=== PATIENT | male | born 1990 | race Caucasian/White ===

== ENCOUNTER 2021-01-08 14:16 | Inpatient (IN) | payer OTHER ==
[~2021-01-08] VITALS: Ht 172.7 cm; Wt 75.0 kg
[2021-01-08] MEDS ORDERED: acetaminophen 325mg tablet PO ONE (15:55)
[2021-01-08] MEDS ORDERED: normal saline 1000ML IV soln IVB ONE (17:20)
[2021-01-08] MEDS ORDERED: ketorolac trometh. 30mg/ml inj. IV ONE (17:20)
[2021-01-08] MEDS ORDERED: iohexol 350MG/ML 100ml bottle IV ONE (17:43)
[2021-01-08 17:54] LABS: BASOPHILS # (AUTO) 0.1 X10'3 (0-0.2); BASOPHILS % (AUTO) 0.4 % (0-1); EOSINOPHILS # (AUTO) 0.1 X10'3 (0-0.9); EOSINOPHILS % (AUTO) 0.4 % (0-6); HEMATOCRIT 46.2 % (42.0-52.0); HEMOGLOBIN 16.1 g/dl (14.0-17.9); LYMPHOCYTES # (AUTO) 1.3 X10'3 (1.1-4.8); LYMPHOCYTES % (AUTO) 8.6 % (21-51); MEAN CORPUSCULAR HEMOGLOBIN 38.1 PG (27.0-31.0); MEAN CORPUSCULAR HGB CONC 34.9 g/dL (33.0-36.5); MEAN CORPUSCULAR VOLUME 109.2 FL (78-98); MEAN PLATELET VOLUME 8.2 FL (7.4-10.4); MONOCYTES # (AUTO) 0.7 X10'3 (0-0.9); MONOCYTES % (AUTO) 4.5 % (2-12); NEUTROPHILS # (AUTO) 13.5 X10'3 (1.8-7.7); NEUTROPHILS % (AUTO) 86.1 % (42-75); PLATELET COUNT 295 X10'3 (140-440); RED BLOOD COUNT 4.23 X10'6 (4.70-6.10); RED CELL DISTRIBUTION WIDTH 16.6 % (11.5-14.5); WHITE BLOOD COUNT 15.7 X10'3 (4.5-11.0)
[2021-01-08 18:17] LABS: ALANINE AMINOTRANSFERASE 32 U/L (12-78); ALBUMIN 3.4 G/DL (3.4-5.0); ALBUMIN/GLOBULIN RATIO 0.7 (1.1-1.5); ALKALINE PHOSPHATASE 177 IU/L (46-116); ANION GAP 11 (8-16); ASPARTATE AMINO TRANSFERASE 34 U/L (10-37); BILIRUBIN,TOTAL 1.5 MG/DL (0.1-1.0); BLOOD UREA NITROGEN 11 MG/DL (7-18); BUN/CREATININE RATIO 11.6 (5.4-32.0); CALCIUM 9.2 MG/DL (8.5-10.1); CHLORIDE 97 MMOL/L (99-107); CREATININE 0.95 MG/DL (0.60-1.10); GLUCOSE 110 MG/DL (70-104); POTASSIUM 3.9 MMOL/L (3.5-5.1); SODIUM 133 MMOL/L (135-145); TOTAL CARBON DIOXIDE 24.7 MMOL/L (24-32); TOTAL PROTEIN 8.2 G/DL (6.4-8.2); eGFR > 90 ML/MIN
[2021-01-08 18:25] LABS: TROPONIN I < 0.04 NG/ML (0.0-0.05)
[2021-01-08] MEDS ORDERED: heparin 10,000 units/1 ML INJ IV ONE ×2 (18:25→18:35)
[2021-01-08] MEDS ORDERED: heparin 10,000 units/1 ML INJ IV PRN ×2 (18:25→20:10)
[2021-01-08] MEDS ORDERED: heparin 25,000 UNIT/250ml bag 250 ML IV SCH ×2 (18:25→20:10)
[2021-01-08] MEDS ORDERED: magnesium 4gm in 100ml NS 100 ML IV PRN (20:10)
[2021-01-08] MEDS ORDERED: acetaminophen 325mg tablet PO PRN ×2 (20:10)
[2021-01-08] MEDS ORDERED: ondansetron/PF 4mg/2ml inj IV PRN (20:10)
[2021-01-08] MEDS ORDERED: morphine 2 MG/ML inj. syringe IV PRN (20:10)
[2021-01-08] MEDS ORDERED: magnesium Cl slow-release 64mg tablet PO PRN (20:10)
[2021-01-08] MEDS ORDERED: HYDROcodone/acetaminophen 5mg/325mg tablet PO PRN (20:10)
[2021-01-08] MEDS ORDERED: potassium Cl 40MEQ/1/2NS 520ml 520 ML IV PRN ×2 (20:10)
[2021-01-08] MEDS ORDERED: magnesium hydroxide 30ml (MOM) UD suspension PO PRN (20:10)
[2021-01-08] MEDS ORDERED: magnesium 2GM in 50ml NS 50 ML IV PRN (20:10)
[2021-01-08] MEDS ORDERED: potassium Cl 20 mEq SR tablet PO PRN (20:10)
[2021-01-08] MEDS ORDERED: NO HOME MEDS (20:22)
[2021-01-08] MEDS ORDERED: temazepam 15mg capsule PO PRN (21:00)
[2021-01-08] MEDS: normal saline 1000ml 1,000 ML IV SCH (21:34)
[2021-01-09] MEDS ORDERED: morphine 4 MG/ML inj SYRINge IV ONE (03:00)
[2021-01-09 03:42] LABS: ALANINE AMINOTRANSFERASE 30 U/L (12-78); ALBUMIN 2.9 G/DL (3.4-5.0); ALBUMIN/GLOBULIN RATIO 0.7 (1.1-1.5); ALKALINE PHOSPHATASE 153 IU/L (46-116); ANION GAP 11 (8-16); ASPARTATE AMINO TRANSFERASE 28 U/L (10-37); BILIRUBIN,TOTAL 1.2 MG/DL (0.1-1.0); BLOOD UREA NITROGEN 10 MG/DL (7-18); BUN/CREATININE RATIO 11.8 (5.4-32.0); CALCIUM 8.4 MG/DL (8.5-10.1); CHLORIDE 102 MMOL/L (99-107); CREATININE 0.85 MG/DL (0.60-1.10); GLUCOSE 114 MG/DL (70-104); MAGNESIUM 2.1 MG/DL (1.5-2.4); POTASSIUM 3.1 MMOL/L (3.5-5.1); SODIUM 137 MMOL/L (135-145); TOTAL CARBON DIOXIDE 23.7 MMOL/L (24-32); TOTAL PROTEIN 7.1 G/DL (6.4-8.2); TROPONIN I < 0.04 NG/ML (0.0-0.05); eGFR > 90 ML/MIN
[2021-01-09] MEDS: HYDROcodone/acetaminophen 10/325mg tab PO PRN ×3 (05:24→21:32)
[2021-01-09] MEDS: normal saline 1000ml 1,000 ML IV SCH ×2 (06:10→11:35)
--- NOTE | 2021-01-09 06:45 | NUR ---
patient awake,ice packs given for lower gage pain.on Heparin drip 1550 units/hour.
[2021-01-09] MEDS ORDERED: enoxaparin 30mg/0.3ml syringe SUBCUT ONE (08:05)
[2021-01-09] MEDS ORDERED: enoxaparin 40mg/0.4ml syringe SUBCUT ONE (08:05)
[2021-01-09] MEDS: morphine 2 MG/ML inj. syringe IV PRN ×3 (08:21→23:05)
[2021-01-09] MEDS: potassium Cl 20 mEq SR tablet PO PRN ×2 (08:31→16:51)
[2021-01-09] MEDS ORDERED: heparin 1,000 UNITS/NS 500ml 500 ML ONE (08:34)
[2021-01-09] MEDS ORDERED: iohexol 300mg/ml 100ml inj. ONE (08:34)
[2021-01-09] MEDS ORDERED: fentaNYL/PF 50MCG/1 ML 2ML syringe ONE ×2 (08:34→10:31)
[2021-01-09] MEDS ORDERED: midazolam 1 mg/ML 2ml injection ONE (08:34)
[2021-01-09] MEDS ORDERED: LIDOcaine 1%/PF 5ML 10 MG/ML VIAL ONE (08:34)
[2021-01-09] MEDS: K and/or MAG REPLACEMENT MC SCH ×2 (08:35→20:00)
--- NOTE | 2021-01-09 08:42 | NUR ---
Denies sob, given 2mg morphine for lower back pain,breakfast tray served, due meds given,pedal pulse + to left foot, call light within reach.
--- NOTE | 2021-01-09 09:00 | NUR ---
DR. HILL AT BEDSIDE.
[2021-01-09] MEDS ORDERED: diphenhydrAMINE 50 mg/ml inj ONE (09:52)
--- NOTE | 2021-01-09 10:00 | NUR ---
PATIENT TO IR.
[2021-01-09] MEDS ORDERED: heparin 1,000unit/ml 10ml vial 10 ML ONE (10:44)
--- NOTE | 2021-01-09 12:00 | NUR ---
patient back in the room.
[2021-01-09 12:38] LABS: BASOPHILS # (AUTO) 0.1 X10'3 (0-0.2); BASOPHILS % (AUTO) 0.4 % (0-1); EOSINOPHILS % (AUTO) 0.3 % (0-6); HEMATOCRIT 43.2 % (42.0-52.0); HEMOGLOBIN 14.5 g/dl (14.0-17.9); LYMPHOCYTES % (AUTO) 6.3 % (21-51); MEAN CORPUSCULAR HEMOGLOBIN 37.1 PG (27.0-31.0); MEAN CORPUSCULAR HGB CONC 33.5 g/dL (33.0-36.5); MEAN CORPUSCULAR VOLUME 110.8 FL (78-98); MEAN PLATELET VOLUME 8.3 FL (7.4-10.4); MONOCYTES # (AUTO) 0.8 X10'3 (0-0.9); MONOCYTES % (AUTO) 5.4 % (2-12); NEUTROPHILS # (AUTO) 13.5 X10'3 (1.8-7.7); NEUTROPHILS % (AUTO) 87.6 % (42-75); PLATELET COUNT 261 X10'3 (140-440); RED CELL DISTRIBUTION WIDTH 16.8 % (11.5-14.5); WHITE BLOOD COUNT 15.4 X10'3 (4.5-11.0)
[2021-01-09 14:09] LABS: ANISOCYTOSIS 1+; PLATELET ESTIMATE NORMAL
--- NOTE | 2021-01-09 16:00 | NUR ---
No evidence of bleeding or hematoma at suture site(left posterior knee). Dressing is clean dry and intact.
[2021-01-09] MEDS ORDERED: enoxaparin 100mg/ml syringe SUBCUT SCH (20:00)
[2021-01-09] MEDS: enoxaparin 30mg/0.3ml syringe SUBCUT SCH (21:38)
[2021-01-09] MEDS: enoxaparin 40mg/0.4ml syringe SUBCUT SCH (21:39)
--- NOTE | 2021-01-09 21:45 | NUR ---
Paged MD regarding patient Lovenox dose. Instructed to administer per order.
[2021-01-10] MEDS: normal saline 1000ml 1,000 ML IV SCH (00:13)
[2021-01-10 02:00] VITALS: BP 135/89
[2021-01-10] MEDS: HYDROcodone/acetaminophen 10/325mg tab PO PRN ×3 (03:12→11:52)
[2021-01-10] MEDS: potassium Cl 20 mEq SR tablet PO PRN (03:58)
--- NOTE | 2021-01-10 05:25 | NUR ---
patient in bed resting at this time. no signs of distress. patient C/O pain to lower back. pain medication administered per order. patient aware of plan of care. call light and personal belongings placed within reach. IVF infusing per order. instructed to call for assistance. report given to charge nurse.
[2021-01-10 06:32] LABS: BASOPHILS % (AUTO) 0.4 % (0-1); EOSINOPHILS # (AUTO) 0.3 X10'3 (0-0.9); EOSINOPHILS % (AUTO) 2.4 % (0-6); HEMATOCRIT 40.9 % (42.0-52.0); HEMOGLOBIN 13.9 g/dl (14.0-17.9); LYMPHOCYTES # (AUTO) 1.2 X10'3 (1.1-4.8); MEAN CORPUSCULAR HEMOGLOBIN 37.4 PG (27.0-31.0); MEAN CORPUSCULAR HGB CONC 33.9 g/dL (33.0-36.5); MEAN CORPUSCULAR VOLUME 110.4 FL (78-98); MEAN PLATELET VOLUME 8.4 FL (7.4-10.4); MONOCYTES # (AUTO) 0.8 X10'3 (0-0.9); MONOCYTES % (AUTO) 6.1 % (2-12); NEUTROPHILS # (AUTO) 10.1 X10'3 (1.8-7.7); NEUTROPHILS % (AUTO) 81.1 % (42-75); PLATELET COUNT 242 X10'3 (140-440); RED BLOOD COUNT 3.71 X10'6 (4.70-6.10); RED CELL DISTRIBUTION WIDTH 16.4 % (11.5-14.5); WHITE BLOOD COUNT 12.4 X10'3 (4.5-11.0)
[2021-01-10 06:46] LABS: ALANINE AMINOTRANSFERASE 24 U/L (12-78); ALBUMIN 2.5 G/DL (3.4-5.0); ALBUMIN/GLOBULIN RATIO 0.6 (1.1-1.5); ALKALINE PHOSPHATASE 129 IU/L (46-116); ANION GAP 9 (8-16); ASPARTATE AMINO TRANSFERASE 19 U/L (10-37); BILIRUBIN,TOTAL 0.6 MG/DL (0.1-1.0); BLOOD UREA NITROGEN 5 MG/DL (7-18); BUN/CREATININE RATIO 7.9 (5.4-32.0); CALCIUM 8.6 MG/DL (8.5-10.1); CHLORIDE 107 MMOL/L (99-107); CREATININE 0.63 MG/DL (0.60-1.10); GLUCOSE 109 MG/DL (70-104); POTASSIUM 3.5 MMOL/L (3.5-5.1); SODIUM 138 MMOL/L (135-145); TOTAL CARBON DIOXIDE 22.1 MMOL/L (24-32); TOTAL PROTEIN 6.4 G/DL (6.4-8.2); eGFR > 90 ML/MIN
[2021-01-10 07:00] VITALS: BP 146/94
--- NOTE | 2021-01-10 07:21 | NUR ---
REPORT SHEET GIVEN TO ME BY NOC CHARGE, MECHANICAL INSULATOR HAD TO LEAVE TO CATCH FLIGHT HOME. ASSUMED CARE OF PATIENT.
[2021-01-10] MEDS: enoxaparin 30mg/0.3ml syringe SUBCUT SCH (07:37)
[2021-01-10] MEDS: enoxaparin 40mg/0.4ml syringe SUBCUT SCH (07:37)
[2021-01-10] MEDS: K and/or MAG REPLACEMENT MC SCH (07:41)
[2021-01-10] MEDS ORDERED: APIX5TAB3 PO (11:50)
[2021-01-10] MEDS ORDERED: HYDR-3965 PO (11:50)
== END 2021-01-10 12:42 | disposition home or self-care (01) | DRG 270 ==
LOC: ER 14:17 → ED HOLD 20:07 → PCU 3S 01-09 20:15
PROVIDERS: ADMIT Internal Medicine; ATTEND Internal Medicine
PROC: B32T1ZZ Computerized Tomography (CT Scan) of Left Pulmonary Artery using Low Osmolar Contrast (ICD-10-PCS; 2021-01-08)
PROC: B3201ZZ Computerized Tomography (CT Scan) of Thoracic Aorta using Low Osmolar Contrast (ICD-10-PCS; 2021-01-08)
PROC: B32S1ZZ Computerized Tomography (CT Scan) of Right Pulmonary Artery using Low Osmolar Contrast (ICD-10-PCS; 2021-01-08)
PROC: 06CD3ZZ Extirpation of Matter from Left Common Iliac Vein, Percutaneous Approach (ICD-10-PCS; principal; 2021-01-09)
PROC: 06CN3ZZ Extirpation of Matter from Left Femoral Vein, Percutaneous Approach (ICD-10-PCS; 2021-01-09)
PROC: 067D3ZZ Dilation of Left Common Iliac Vein, Percutaneous Approach (ICD-10-PCS; 2021-01-09)
PROC: B51C1ZZ Fluoroscopy of Left Lower Extremity Veins using Low Osmolar Contrast (ICD-10-PCS; 2021-01-09)
PROC: B51C1ZZ Fluoroscopy of Left Lower Extremity Veins using Low Osmolar Contrast (ICD-10-PCS; 2021-01-09)
DX: I82.412 Acute embolism and thrombosis of left femoral vein (principal); I26.99 Other pulmonary embolism without acute cor pulmonale; D72.828 Other elevated white blood cell count; G89.29 Other chronic pain; I82.432 Acute embolism and thrombosis of left popliteal vein; I82.442 Acute embolism and thrombosis of left tibial vein; M54.2 Cervicalgia; M54.9 Dorsalgia, unspecified; R30.0 Dysuria; I51.7 Cardiomegaly; Z20.822 Contact with and (suspected) exposure to COVID-19; Z79.01 Long term (current) use of anticoagulants; Z82.49 Family history of ischemic heart disease and other diseases of the circulatory system; Z86.16 Personal history of COVID-19; Z88.1 Allergy status to other antibiotic agents; Z91.013 Allergy to seafood; Z72.89 Other problems related to lifestyle
CPT/HCPCS: 36005; 36415; 37187; 37248; 71045; 71275; 76937; 80053; 83605; 83735; 83880; 84145; 84484; 85008; 85025; 85347; 85610; 85730; 87081; 87635; 93005; 93306; 93970; 96374; 97116; 97161; 97530; 99285; C1725; C1757; C1769; C1887; C1894; C9803; G0378; J1200; J1644; J1650; J1885; J2250; J2270; J2405; J3010; J7030; Q9967

== ENCOUNTER 2021-02-24 16:33 | Inpatient (IN) | payer OTHER ==
[~2021-02-24] VITALS: Ht 175.3 cm; Wt 81.0 kg
[~2021-02-24 16:33] MED LIST: APIX5TAB3 PO; etomidate 2mg/ml inj. ONE; rocuronium 10mg/ml inj IV ONE
[2021-02-24] MEDS ORDERED: HYDROcodone/acetaminophen 10/325mg tab PO ONE (17:55)
[2021-02-24] MEDS ORDERED: ondansetron 4mg rapidly disintigrating tab PO ONE ×2 (18:00→18:25)
[2021-02-24] MEDS ORDERED: morphine 4 MG/ML inj SYRINge IM ONE (18:00)
[2021-02-24 18:13] LABS: EOSINOPHILS % (AUTO) 0.1 % (0-6); MEAN CORPUSCULAR HEMOGLOBIN 37.3 PG (27.0-31.0)
[2021-02-24 18:15] LABS: BASOPHILS % (AUTO) 0.2 % (0-1); HEMATOCRIT 56.8 % (42.0-52.0); LYMPHOCYTES # (AUTO) 1.2 X10'3 (1.1-4.8); LYMPHOCYTES % (AUTO) 6.2 % (21-51); MEAN CORPUSCULAR HGB CONC 34.1 g/dL (33.0-36.5); MEAN CORPUSCULAR VOLUME 109.2 FL (78-98); MEAN PLATELET VOLUME 8.5 FL (7.4-10.4); MONOCYTES # (AUTO) 0.7 X10'3 (0-0.9); MONOCYTES % (AUTO) 3.7 % (2-12); NEUTROPHILS # (AUTO) 17.3 X10'3 (1.8-7.7); NEUTROPHILS % (AUTO) 89.8 % (42-75); PLATELET COUNT 292 X10'3 (140-440); RED CELL DISTRIBUTION WIDTH 16.9 % (11.5-14.5); WHITE BLOOD COUNT 19.3 X10'3 (4.5-11.0)
[2021-02-24] MEDS ORDERED: LORazepam 2 mg/ml vial IM ONE (18:25)
[2021-02-24] MEDS ORDERED: famotidine/PF 10 mg/ml inj IV ONE (18:25)
[2021-02-24] MEDS ORDERED: pantoprazole 40MG/NS 100ML BAG 100 ML IV ONE (18:25)
[2021-02-24 18:30] LABS: ALANINE AMINOTRANSFERASE 93 U/L (12-78); ALBUMIN 3.9 G/DL (3.4-5.0); ALKALINE PHOSPHATASE 187 IU/L (46-116); ANION GAP 11 (8-16); ASPARTATE AMINO TRANSFERASE 81 U/L (10-37); BILIRUBIN,TOTAL 0.6 MG/DL (0.1-1.0); BLOOD UREA NITROGEN 5 MG/DL (7-18); BUN/CREATININE RATIO 4.8 (5.4-32.0); CALCIUM 9.7 MG/DL (8.5-10.1); CHLORIDE 99 MMOL/L (99-107); CREATININE 1.05 MG/DL (0.60-1.10); GLUCOSE 220 MG/DL (70-104); POTASSIUM 3.8 MMOL/L (3.5-5.1); SODIUM 138 MMOL/L (135-145); TOTAL CARBON DIOXIDE 27.8 MMOL/L (24-32); eGFR 83 ML/MIN
[2021-02-24 18:31] LABS: HEMOGLOBIN 19.4 g/dl (14.0-17.9)
[2021-02-24] MEDS ORDERED: normal saline 1000ML IV soln IV ONE (19:10)
[2021-02-24] MEDS ORDERED: iohexol 300mg/ml 100ml inj. ONE (19:39)
[2021-02-24 20:14] LABS: LIPASE 6852 U/L (73-393)
[2021-02-24] MEDS ORDERED: CefTRIAXone 2gm/D5W 50ml BAG 50 ML IV ONE (20:25)
--- NOTE | 2021-02-24 20:26 | NUR ---
ASSUMED CARE OF PT. PT ROOMED IN BED 9
[2021-02-24] MEDS ORDERED: morphine 4 MG/ML inj SYRINge IV ONE (20:30)
[2021-02-24] MEDS ORDERED: temazepam 15mg capsule PO PRN (21:00)
--- NOTE | 2021-02-24 21:26 | NUR ---
CATALINO ANGELO, GIVEN LACTIC CRITICAL RESULT. WE WILL SEE RESULT AFTER 2L OF FLUID BOLUS WHICH IS CURRENTLY RUNNING.
[2021-02-24] MEDS ORDERED: morphine 4 MG/ML inj SYRINge IV PRN (21:55)
--- NOTE | 2021-02-24 22:00 | NUR ---
PT TACHYCARDIC. HE STATES HE IS IN PAIN. TALKED TO LILO. WILL HAVE ORDER FOR PAIN MEDS.
[2021-02-24] MEDS ORDERED: diphenhydrAMINE 50 mg/ml inj IV PRN (23:40)
[2021-02-24] MEDS ORDERED: morphine 2 MG/ML inj. syringe IV PRN (23:40)
[2021-02-24] MEDS ORDERED: HYDROmorphone/PF 0.2 MG/ML SYRINGE IV PRN (23:40)
[2021-02-24] MEDS ORDERED: HYDROmorphone inj. 0.5 MG/0.5 ML DISP.SYRIN IV PRN (23:40)
[2021-02-24] MEDS ORDERED: HYDROcodone/acetaminophen 5mg/325mg tablet PO PRN (23:40)
[2021-02-24] MEDS ORDERED: bisacodyl 10mg suppository rectal RC PRN (23:40)
[2021-02-24] MEDS ORDERED: magnesium hydroxide 30ml (MOM) UD suspension PO PRN (23:40)
[2021-02-24] MEDS ORDERED: acetaminophen 650mg rectal suppository RC PRN (23:40)
[2021-02-24] MEDS ORDERED: ondansetron 4mg rapidly disintigrating tab PO PRN (23:40)
[2021-02-24] MEDS ORDERED: diphenhydrAMINE 25mg capsule PO PRN (23:40)
[2021-02-24] MEDS ORDERED: mag hydrox/Alum hydrox/simeth 30ml oral suspension PO PRN (23:40)
[2021-02-24] MEDS ORDERED: hydrALAZINE 20mg/ml inj. IV PRN (23:45)
[2021-02-24] MEDS ORDERED: haloperidol lactate 5mg/ml inj IM PRN (23:45)
[2021-02-24] MEDS ORDERED: dextrose 50%-water 50ml dispensing syringe IV PRN (23:45)
[2021-02-25 00:13] LABS: CREATINE KINASE 61 U/L (39-308)
[2021-02-25 00:15] LABS: HEMOGLOBIN A1C 5.1 % (4.5-6.2)
[2021-02-25 00:18] LABS: URINE AMPHETAMINE SCREEN NEGATIVE (Neg); URINE BARBITUATE SCREEN NEGATIVE (Neg); URINE BENZODIAZEPINES SCREEN NEGATIVE (Neg); URINE CANNABINOID SCREEN NEGATIVE (Neg); URINE COCAINE SCREEN NEGATIVE (Neg); URINE METHADONE SCREEN NEGATIVE (Neg); URINE OPIATE SCREEN POSITIVE (Neg); URINE PHENCYCLIDINE SCREEN NEGATIVE (Neg)
[2021-02-25 00:42] LABS: CLARITY,URINE CLEAR (Clear); COLOR,URINE YELLOW (Yellow); GLUCOSE, URINE NEGATIVE (Neg); KETONES,URINE NEGATIVE (Neg); LEUKOCYTE ESTERASE ,URINE NEGATIVE (Neg); NITRITES, URINE NEGATIVE (Neg); OCCULT BLOOD,URINE TRACE-INTACT (Neg); PH,URINE 6.5 (4.8-8.0); PROTEIN,URINE TRACE mg/dl (Neg); UROBILINOGEN,URINE 0.2 E.U/dL (0.2-1.0)
[2021-02-25 00:43] LABS: UA COLLECTION TYPE CLN CATCH MIDSTREAM
[2021-02-25 00:48] LABS: BACTERIA,URINE FEW /HPF (Neg); RBC,URINE 0-2 /HPF (0-2); SQUAMOUS EPITHELIAL CELL,UR FEW /LPF (FEW); WBC,URINE 0-4 /HPF (0-4)
[2021-02-25] MEDS: ondansetron/PF 4mg/2ml inj IV PRN ×3 (01:19→19:16)
--- NOTE | 2021-02-25 01:20 | NUR ---
PT IS COMPLAINING OF PAIN. WILL GIVE PAIN MEDS AND ATIVAN PER ORDERS PLACED FOR ETOH WITHDRAWAL
[2021-02-25] MEDS: morphine 2 MG/ML inj. syringe IV PRN ×4 (01:21→23:28)
--- NOTE | 2021-02-25 01:25 | NUR ---
SPOKE TO FASHION BUYER CONCERNING PT'S TACHYCARDIA AND OVERALL APPEARANCE
[2021-02-25] MEDS: dextrose 5%-1/2 normal saline 1,000 ML IV SCH ×3 (01:27→16:50)
[2021-02-25] MEDS: LORazepam 2 mg/ml vial IV PRN ×3 (01:35→23:25)
[2021-02-25 02:06] LABS: BASOPHILS # (AUTO) 0.1 X10'3 (0-0.2); BASOPHILS % (AUTO) 0.4 % (0-1); EOSINOPHILS % (AUTO) 0.1 % (0-6); HEMATOCRIT 55.9 % (42.0-52.0); LYMPHOCYTES # (AUTO) 0.5 X10'3 (1.1-4.8); LYMPHOCYTES % (AUTO) 3.4 % (21-51); MEAN CORPUSCULAR HEMOGLOBIN 37.1 PG (27.0-31.0); MEAN CORPUSCULAR HGB CONC 33.2 g/dL (33.0-36.5); MEAN CORPUSCULAR VOLUME 111.7 FL (78-98); MEAN PLATELET VOLUME 8.8 FL (7.4-10.4); MONOCYTES # (AUTO) 0.6 X10'3 (0-0.9); MONOCYTES % (AUTO) 4.4 % (2-12); NEUTROPHILS # (AUTO) 13.3 X10'3 (1.8-7.7); NEUTROPHILS % (AUTO) 91.7 % (42-75); PLATELET COUNT 213 X10'3 (140-440); RED CELL DISTRIBUTION WIDTH 17.4 % (11.5-14.5); WHITE BLOOD COUNT 14.4 X10'3 (4.5-11.0)
[2021-02-25 02:19] LABS: ALANINE AMINOTRANSFERASE 70 U/L (12-78); ALBUMIN 3.1 G/DL (3.4-5.0); ALBUMIN/GLOBULIN RATIO 0.8 (1.1-1.5); ALKALINE PHOSPHATASE 146 IU/L (46-116); ANION GAP 14 (8-16); ASPARTATE AMINO TRANSFERASE 47 U/L (10-37); BILIRUBIN,TOTAL 0.5 MG/DL (0.1-1.0); BLOOD UREA NITROGEN 5 MG/DL (7-18); CALCIUM 8.2 MG/DL (8.5-10.1); CHLORIDE 103 MMOL/L (99-107); CHOL/HDL RATIO 6.9 (0.00-4.99); CHOLESTEROL 250 MG/DL (0-200); CREATININE 1.01 MG/DL (0.60-1.10); GLUCOSE 214 MG/DL (70-104); HDL CHOLESTEROL 36 MG/DL (35-60); LDL CHOLESTEROL 166 MG/DL (50-100); POTASSIUM 4.8 MMOL/L (3.5-5.1); SODIUM 140 MMOL/L (135-145); TOTAL CARBON DIOXIDE 22.8 MMOL/L (24-32); TOTAL PROTEIN 6.8 G/DL (6.4-8.2); TRIGLYCERIDES 144 MG/DL (20-135); eGFR 87 ML/MIN
--- NOTE | 2021-02-25 02:35 | NUR ---
PT'S HEART HAS BEEN RACING. PT FEELS ANXIOUS. PT MEDICATED WITH ATIVAN PER ORDERS.
--- NOTE | 2021-02-25 03:10 | NUR ---
ORDERED ANOTHER EKG FOR PT TO DETERMINE WHETHER PT IS IN SVT
--- NOTE | 2021-02-25 03:12 | NUR ---
DR ROSS HAS REVIEWED MY NEW EKG
--- NOTE | 2021-02-25 03:15 | NUR ---
CALLED DR RAGSDALE AND REPORTED PT'S HEART RATE AND INTERVENTIONS THAT HAVE BEEN TRIED. HE SUGGESTS GIVING PT HALDOL GIVEN IN HIS PLACED PROTOCOL.
[2021-02-25] MEDS: normal saline 1000ml 1,000 ML IV SCH ×3 (03:30→15:55)
[2021-02-25 03:50] LABS: HEMOGLOBIN 18.6 g/dl (14.0-17.9)
[2021-02-25 03:52] LABS: ANISOCYTOSIS 1+; PLATELET ESTIMATE NORMAL
[2021-02-25 03:53] LABS: LARGE PLATELETS FEW
--- NOTE | 2021-02-25 04:02 | NUR ---
SPOKE TO CONCRETE HOPPER OPERATOR CONCERNING PT'S CONDITION. CONCRETE HOPPER OPERATOR WILL TALK TO DR RAGSDALE. CURRENTLY AT BEDSIDE WITH PT. PT STARTED HAVING A NOSEBLEED. COAGS ARE LATE D/T HIGH ACUITY INCOMING PT, SALES AND MERCHANDISING ASSOCIATE IS CURRENTLY AT BEDSIDE DRAWING LABWORK
[2021-02-25] MEDS ORDERED: normal saline 1000ml 1,000 ML IV ONE ×2 (04:05→09:45)
--- NOTE | 2021-02-25 04:12 | NUR ---
RECIEVED ORDER FOR A LITER OF NS FLUIDS. FLUIDS ARE RUNNING. I REMAIN AT PT'S BEDSIDE. PT'S NOSE IS NO LONGER BLEEDING.
[2021-02-25 04:29] LABS: APTT 25 SECONDS (22-32)
--- NOTE | 2021-02-25 04:40 | NUR ---
PT RIPPED OFF HIS IV ON ACCIDENT. PLACED NEW 18 GAUGE IN RIGHT FOREARM.
[2021-02-25] MEDS: metoprolol tartrate 1mg/ml inj IV SCH ×16 (04:45→15:55)
--- NOTE | 2021-02-25 05:23 | NUR ---
CALLED DR RAGSDALE CONCERNING PT'S CONTINUED TACHYCARDIA. HE ORDERED A CONTRERAS AND ANOTHER 500ML CC. NO OTHER ORDERS.
[2021-02-25] MEDS ORDERED: normal saline 500ml IV soln 1,000 ML IV ONE (05:25)
--- NOTE | 2021-02-25 05:47 | NUR ---
CONTRERAS PLACED. PT GIVEN 500 THAT WAS ORDERED. ONLY HAVE 300 CC OF URINE OUTPUT TOTAL. i CALLED DR RAGSDALE CONCERING ALL OF THIS AND PT'S VITALS AND OVERALL APPEARANCE. DR RAGSDALE GAVE TELEPHONE ORDER FOR 15 MG OF CARDIZEM TO BE GIVEN NOW AND TO INCREASE MAINTENANCE FLUIDS TO 150 ML PER HOUR.
[2021-02-25] MEDS ORDERED: diltiazem 5mg/ml 5ml inj. IV ONE (05:50)
--- NOTE | 2021-02-25 06:03 | NUR ---
CALLED DR RAGSDALE. I HAVE REQUESTED HIM TO COME ASSESS HIS PT STAT. I HAVE SEEN NO IMPROVEMENT IN PT DESPITE CARDIZEM GIVEN.
--- NOTE | 2021-02-25 06:11 | NUR ---
DR RAGSDALE CAME TO ASSESS PT. HE GAVE VERBAL ORDER FOR CXR, BNP, TROPONIN, UA, EKG, 10 MG DIAZEPAM IV TO BE GIVEN NOW, METOPROLOL 5 MG IV Q15X3 NEEDED. ORDERS WILL BE PLACED. ORDERS REPEATED BACK FOR ACCURACY.
[2021-02-25] MEDS ORDERED: diazepam inj 5 MG/ML inj. IV ONE (06:15)
--- NOTE | 2021-02-25 06:30 | NUR ---
CALLED DR RAGSDALE ASKED HIM TO LOOK AT PT'S NEW CXR. ALSO GAVE HIM PT'S NEW VITALS. DR RAGSDALE AWARE.
--- NOTE | 2021-02-25 06:38 | NUR ---
CONSULTED WITH DR ROSS. HE GAVE VERBAL ORDER FOR CTA WITH CONTRAST. ORDER PLACED.
--- NOTE | 2021-02-25 06:50 | NUR ---
Received VO from Dr. Bermudez for non-behavioral restraints. Pt unable to stay still and has pulled out IVs and pulling at F/C.
[2021-02-25 07:27] LABS: BASOPHILS % (AUTO) 0.1 % (0-1); EOSINOPHILS % (AUTO) 0 % (0-6); HEMATOCRIT 55.8 % (42.0-52.0); LYMPHOCYTES # (AUTO) 0.5 X10'3 (1.1-4.8); LYMPHOCYTES % (AUTO) 3.2 % (21-51); MEAN CORPUSCULAR HGB CONC 33.3 g/dL (33.0-36.5); MONOCYTES # (AUTO) 0.5 X10'3 (0-0.9); MONOCYTES % (AUTO) 3.4 % (2-12); NEUTROPHILS # (AUTO) 15.2 X10'3 (1.8-7.7); NEUTROPHILS % (AUTO) 93.3 % (42-75); PLATELET COUNT 209 X10'3 (140-440); RED BLOOD COUNT 5.03 X10'6 (4.70-6.10); RED CELL DISTRIBUTION WIDTH 17.2 % (11.5-14.5); WHITE BLOOD COUNT 16.2 X10'3 (4.5-11.0)
[2021-02-25 07:34] LABS: HEMOGLOBIN 18.6 g/dl (14.0-17.9)
[2021-02-25] MEDS: docusate sod 100mg capsule PO SCH ×2 (07:34→20:00)
[2021-02-25 07:49] LABS: ALBUMIN 2.7 G/DL (3.4-5.0); ANION GAP 9 (8-16); BLOOD UREA NITROGEN 6 MG/DL (7-18); BUN/CREATININE RATIO 6.7 (5.4-32.0); CALCIUM 7.8 MG/DL (8.5-10.1); CHLORIDE 102 MMOL/L (99-107); GLUCOSE 256 MG/DL (70-104); POTASSIUM 4.6 MMOL/L (3.5-5.1); SODIUM 131 MMOL/L (135-145); TOTAL CARBON DIOXIDE 19.9 MMOL/L (24-32); eGFR > 90 ML/MIN
[2021-02-25] MEDS: folic acid 1mg/0.2ml inj IV SCH (08:00)
[2021-02-25] MEDS ORDERED: thiamine inj. 200 MG in normal saline 100ml IV soln 100 ML IV SCH (08:00)
[2021-02-25] MEDS: pantoprazole IV 40 MG in dextrose 5%-water 100 ML IV SCH (08:00)
[2021-02-25] MEDS ORDERED: thiamine 100mg/ml 2ml inj. IV SCH (08:00)
[2021-02-25 09:17] LABS: ANISOCYTOSIS 1+; PLATELET ESTIMATE NORMAL; TOTAL CELLS COUNTED 100
[2021-02-25 09:18] LABS: LARGE PLATELETS FEW; SMUDGE CELLS FEW
[2021-02-25] MEDS ORDERED: iohexol 350MG/ML 100ml bottle IV ONE (09:52)
[2021-02-25] MEDS: thiamine 100mg/ml 2ml inj. IV SCH ×3 (10:31→23:38)
--- NOTE | 2021-02-25 10:57 | NUR ---
MOM: [phone] BROTHER: [phone]
[2021-02-25 16:00] VITALS: BP 150/99
[2021-02-25 18:00] VITALS: BP 144/84
--- NOTE | 2021-02-25 19:03 | NUR ---
Problems reprioritized. Patient report given, questions answered & plan of care reviewed with Angelica OCHOA [].
--- NOTE | 2021-02-25 20:30 | NUR ---
Blood sugar of 266 mg/dl reported to Dr Hanson;order given to hold IV fluid.
[2021-02-25 20:45] LABS: AMYLASE 233 U/L (25-115); CREATINE KINASE 85 U/L (39-308)
[2021-02-25 20:56] LABS: LIPASE 4928 U/L (73-393)
--- NOTE | 2021-02-25 21:00 | NUR ---
Pt continues to remove his line and telemetry box, out of bed and trying to put his clothe on. Pt reoriented and placed back to bed to bed. Will reassess pt and medicate him as ordered.
--- NOTE | 2021-02-25 22:45 | NUR ---
I was called to go the room and found pt standing and dressing up, not steady on his feet linen and floor saturated with blood, blood dripping from his penis. I was told that Carmen Keyes from ER came to the floor and removed pt's Romero without notifying me; the nurse. Pt was cleaned and placed back to bed with instruction not to get out of bed and call for assistance.
[2021-02-26] VITALS (13 sets, daily range): BP systolic 97–175; BP diastolic 48–101
[2021-02-26] MEDS: LORazepam 2 mg/ml vial IV PRN ×7 (02:41→14:35)
--- NOTE | 2021-02-26 02:55 | NUR ---
Fire alarm is on , pt no where to be found on the floor, went downstairs to locate pt. Staff found pt outside and brought pt to the ER. Went to the ER and locate pt in a room sitting in a chair. Nurse asked us to leave pt and said that she will bring pt up.
--- NOTE | 2021-02-26 03:15 | NUR ---
Pt back to floor in bed. Placed back on the monitor and IV fluid restarted. Vitals monitoring in progress.
--- NOTE | 2021-02-26 03:50 | NUR ---
Pt back to his room post being missing, placed in bed and vitals being monitor. BP 150/95 and HR 150 noted and pt medicated. Patient medicated as per standing order and will continue to monitor pt' vitals. IV fluid infusing well at this time
[2021-02-26] MEDS: metoprolol tartrate 1mg/ml inj IV SCH (03:56)
[2021-02-26] MEDS: dextrose 5%-1/2 normal saline 1,000 ML IV SCH (05:40)
--- NOTE | 2021-02-26 06:20 | NUR ---
Patient in room PCU 3025. I have received report from GABRIELA Dominguez and had the opportunity to ask questions and assume patient care.
--- NOTE | 2021-02-26 06:51 | NUR ---
Report given, pt in bed. Sitter at bedside.
[2021-02-26] MEDS ORDERED: metoprolol tartrate 1mg/ml inj IV PRN (07:20)
[2021-02-26 07:24] LABS: BASOPHILS % (AUTO) 0.2 % (0-1); EOSINOPHILS % (AUTO) 0 % (0-6); HEMATOCRIT 48.7 % (42.0-52.0); HEMOGLOBIN 16.2 g/dl (14.0-17.9); LYMPHOCYTES # (AUTO) 0.8 X10'3 (1.1-4.8); MEAN CORPUSCULAR HEMOGLOBIN 36.9 PG (27.0-31.0); MEAN CORPUSCULAR HGB CONC 33.3 g/dL (33.0-36.5); MEAN CORPUSCULAR VOLUME 110.7 FL (78-98); MEAN PLATELET VOLUME 9.3 FL (7.4-10.4); MONOCYTES # (AUTO) 0.9 X10'3 (0-0.9); MONOCYTES % (AUTO) 5.6 % (2-12); NEUTROPHILS # (AUTO) 14.7 X10'3 (1.8-7.7); NEUTROPHILS % (AUTO) 89.2 % (42-75); PLATELET COUNT 152 X10'3 (140-440); RED CELL DISTRIBUTION WIDTH 17.1 % (11.5-14.5); WHITE BLOOD COUNT 16.5 X10'3 (4.5-11.0)
[2021-02-26] MEDS: normal saline 1000ml 1,000 ML IV SCH ×4 (07:32→20:41)
[2021-02-26 08:00] LABS: ALANINE AMINOTRANSFERASE 35 U/L (12-78); ALBUMIN 2.2 G/DL (3.4-5.0); ALBUMIN/GLOBULIN RATIO 0.7 (1.1-1.5); ALKALINE PHOSPHATASE 77 IU/L (46-116); ANION GAP 12 (8-16); ASPARTATE AMINO TRANSFERASE 53 U/L (10-37); BILIRUBIN,TOTAL 1.7 MG/DL (0.1-1.0); BLOOD UREA NITROGEN 10 MG/DL (7-18); CALCIUM 6.8 MG/DL (8.5-10.1); CHLORIDE 100 MMOL/L (99-107); CREATININE 0.83 MG/DL (0.60-1.10); GLUCOSE 187 MG/DL (70-104); POTASSIUM 3.8 MMOL/L (3.5-5.1); SODIUM 130 MMOL/L (135-145); TOTAL CARBON DIOXIDE 18.2 MMOL/L (24-32); TOTAL PROTEIN 5.3 G/DL (6.4-8.2); eGFR > 90 ML/MIN
[2021-02-26 08:14] LABS: ANISOCYTOSIS 1+; PLATELET ESTIMATE NORMAL; SMUDGE CELLS FEW; TOTAL CELLS COUNTED 100
[2021-02-26 08:15] LABS: LARGE PLATELETS FEW
[2021-02-26] MEDS: docusate sod 100mg capsule PO SCH ×2 (08:58→20:00)
[2021-02-26] MEDS: pantoprazole IV 40 MG in dextrose 5%-water 100 ML IV SCH (08:58)
[2021-02-26] MEDS: folic acid 1mg/0.2ml inj IV SCH (08:58)
[2021-02-26] MEDS: thiamine 100mg/ml 2ml inj. IV SCH ×3 (10:24→20:53)
--- NOTE | 2021-02-26 12:41 | NUR ---
PAGER ID: [phone] MESSAGE: RAPID RESPONCE CALLED ON 2523S RICHIE. BEN JOEL
[2021-02-26] MEDS: morphine 2 MG/ML inj. syringe IV PRN (12:52)
[2021-02-26 12:56] LABS: ABG BASE EXCESS -4.5 mmol/L (-2.0-2.0); ABG OXYGEN SATURATION 92.9 % (94-97); ABG PCO2 (T) 31.6 mmHg (35.0-48.0); ABG PO2 (T) 66.6 mmHg (75.0-100.0); ALLEN'S TEST POSITIVE; FCOHb 1.3 % (0.0-3.9); FLOW 4 L/min; FMetHb 0.4 % (0.0-1.5); FO2Hb 91.3 % (94-97); PATIENT TEMPERATURE 37.1; TOTAL HEMOGLOBIN 16.6 G/dl (14.0-18.0)
[2021-02-26] MEDS ORDERED: cloNIDine 0.1 mg tablet PO PRN (13:00)
[2021-02-26] MEDS ORDERED: cloNIDine 0.1 mg tablet PO ONE (13:05)
--- NOTE | 2021-02-26 13:54 | NUR ---
PAGER ID: [phone] MESSAGE: [id number] CLEO CURRENT V/S AFTER APRESSOLINE IV AND CLONIDINE PO BP 151/93, HR 143, O2 SAT 98 ON 60% BIPAP, RR 39. BEN PCU
--- NOTE | 2021-02-26 14:50 | NUR ---
Report given to CIDER MAKERJessica.
[2021-02-26] MEDS ORDERED: dexmedetomidin/NS 400mcg/100ml 100 ML IV SCH (15:20)
[2021-02-26] MEDS ORDERED: propofol 1000mg/100ml bottle 100 ML IV ONE (16:05)
[2021-02-26] MEDS ORDERED: LIDOcaine 2% 10ml TOPICAL JELLY (Urojet) TP ONE (16:55)
[2021-02-26] MEDS: NORepinephrine 8mg/ 250ml NS 250 ML IV SCH (18:06)
[2021-02-26] MEDS: propofol 1000mg/100ml bottle 100 ML IV SCH (23:22)
[2021-02-26] MEDS: acetaminophen 325mg tablet PO PRN (23:51)
[2021-02-27] VITALS (29 sets, daily range): BP systolic 83–127; BP diastolic 47–98
[2021-02-27 02:37] LABS: BASOPHILS % (AUTO) 0.2 % (0-1); EOSINOPHILS % (AUTO) 0.4 % (0-6); HEMATOCRIT 42.2 % (42.0-52.0); HEMOGLOBIN 14.3 g/dl (14.0-17.9); LYMPHOCYTES # (AUTO) 1.1 X10'3 (1.1-4.8); MEAN CORPUSCULAR HGB CONC 33.9 g/dL (33.0-36.5); MEAN CORPUSCULAR VOLUME 109.1 FL (78-98); MEAN PLATELET VOLUME 9.5 FL (7.4-10.4); MONOCYTES # (AUTO) 0.8 X10'3 (0-0.9); NEUTROPHILS # (AUTO) 9.1 X10'3 (1.8-7.7); NEUTROPHILS % (AUTO) 82.4 % (42-75); PLATELET COUNT 129 X10'3 (140-440); RED BLOOD COUNT 3.87 X10'6 (4.70-6.10); RED CELL DISTRIBUTION WIDTH 16.8 % (11.5-14.5); WHITE BLOOD COUNT 11.1 X10'3 (4.5-11.0)
[2021-02-27 02:57] LABS: ALANINE AMINOTRANSFERASE 30 U/L (12-78); ALBUMIN 1.8 G/DL (3.4-5.0); ALBUMIN/GLOBULIN RATIO 0.6 (1.1-1.5); ALKALINE PHOSPHATASE 73 IU/L (46-116); ANION GAP 12 (8-16); ASPARTATE AMINO TRANSFERASE 50 U/L (10-37); BILIRUBIN,TOTAL 2.7 MG/DL (0.1-1.0); BLOOD UREA NITROGEN 14 MG/DL (7-18); BUN/CREATININE RATIO 16.9 (5.4-32.0); CALCIUM 6.7 MG/DL (8.5-10.1); CHLORIDE 101 MMOL/L (99-107); CREATININE 0.83 MG/DL (0.60-1.10); GLUCOSE 149 MG/DL (70-104); POTASSIUM 3.3 MMOL/L (3.5-5.1); SODIUM 132 MMOL/L (135-145); TOTAL CARBON DIOXIDE 19.2 MMOL/L (24-32); TOTAL PROTEIN 4.9 G/DL (6.4-8.2); eGFR > 90 ML/MIN
[2021-02-27] MEDS: propofol 1000mg/100ml bottle 100 ML IV SCH ×4 (03:20→20:41)
[2021-02-27 04:13] LABS: PLATELET ESTIMATE DECREASED; TOTAL CELLS COUNTED 100
[2021-02-27 04:14] LABS: ANISOCYTOSIS 1+; MEGAKARYOCYTE FRAGMENTS RARE; POLYCHROMASIA FEW
[2021-02-27 04:16] LABS: GIANT PLATELET FEW; LARGE PLATELETS FEW
[2021-02-27] MEDS: normal saline 1000ml 1,000 ML IV SCH ×2 (04:17→13:05)
[2021-02-27] MEDS ORDERED: ringers solution, lacted 1,000 ML IV ONE (04:25)
[2021-02-27 04:47] LABS: ABG BASE EXCESS -5.3 mmol/L (-2.0-2.0); ABG HCO3 16.4 mmol/L (22.0-26.0); ABG OXYGEN SATURATION 96.2 % (94-97); ABG PCO2 (T) 24.5 mmHg (35.0-48.0); ABG PO2 (T) 78.4 mmHg (75.0-100.0); ALLEN'S TEST POSITIVE; FCOHb 0.1 % (0.0-3.9); FMetHb 0.3 % (0.0-1.5); FO2Hb 95.8 % (94-97); PATIENT TEMPERATURE 37.8; PEEP 6 cm H2O; RESPIRATORY RATE 16 b/min; TIDAL VOLUME 500 mL; TOTAL HEMOGLOBIN 15.2 G/dl (14.0-18.0)
[2021-02-27] MEDS: docusate sod 100mg capsule PO SCH ×2 (08:00→20:28)
[2021-02-27] MEDS: thiamine 100mg/ml 2ml inj. IV SCH ×3 (09:42→20:40)
[2021-02-27] MEDS: pantoprazole IV 40 MG in dextrose 5%-water 100 ML IV SCH (09:42)
[2021-02-27] MEDS: folic acid 1mg/0.2ml inj IV SCH (10:15)
[2021-02-27] MEDS: acetaminophen 325mg tablet PO PRN (10:50)
[2021-02-27] MEDS: NORepinephrine 8mg/ 250ml NS 250 ML IV SCH (11:16)
[2021-02-27] MEDS ORDERED: potassium Cl 20 mEq SR tablet PO PRN ×3 (11:35→12:15)
[2021-02-27] MEDS ORDERED: magnesium 4gm in 100ml NS 100 ML IV PRN (12:15)
[2021-02-27] MEDS ORDERED: magnesium 2GM in 50ml NS 50 ML IV PRN (12:15)
[2021-02-27] MEDS: potassium Cl 20mEq/100mL bag 100 ML IV PRN (13:11)
[2021-02-27] MEDS: FENTANYL-0.9 % NACL/PF 100 ML IV PRN ×2 (13:47→20:41)
[2021-02-28] VITALS (23 sets, daily range): BP systolic 104–133; BP diastolic 55–67
[2021-02-28] MEDS: normal saline 1000ml 1,000 ML IV SCH ×3 (00:11→20:27)
[2021-02-28] MEDS: acetaminophen 325mg tablet PO PRN ×2 (00:22→17:16)
[2021-02-28] MEDS: LORazepam 2 mg/ml vial IV PRN (00:54)
[2021-02-28] MEDS: propofol 1000mg/100ml bottle 100 ML IV SCH ×5 (01:14→21:46)
[2021-02-28 03:45] LABS: ABG HCO3 21.5 mmol/L (22.0-26.0); ABG OXYGEN SATURATION 94.2 % (94-97); ABG PCO2 (T) 40.6 mmHg (35.0-48.0); ABG PO2 (T) 68.9 mmHg (75.0-100.0); ALLEN'S TEST POSITIVE; FCOHb 0.6 % (0.0-3.9); FMetHb 0.3 % (0.0-1.5); FO2Hb 93.4 % (94-97); PEEP 5 cm H2O; RESPIRATORY RATE 14 b/min; TIDAL VOLUME 500 mL; TOTAL HEMOGLOBIN 13.7 G/dl (14.0-18.0)
[2021-02-28] MEDS: NORepinephrine 8mg/ 250ml NS 250 ML IV SCH ×2 (04:32→21:48)
[2021-02-28] MEDS: FENTANYL-0.9 % NACL/PF 100 ML IV PRN ×3 (04:45→18:24)
[2021-02-28 05:03] LABS: BASOPHILS % (AUTO) 0.1 % (0-1); EOSINOPHILS # (AUTO) 0.2 X10'3 (0-0.9); EOSINOPHILS % (AUTO) 2.8 % (0-6); HEMATOCRIT 37.3 % (42.0-52.0); HEMOGLOBIN 12.7 g/dl (14.0-17.9); LYMPHOCYTES # (AUTO) 0.7 X10'3 (1.1-4.8); LYMPHOCYTES % (AUTO) 7.8 % (21-51); MEAN CORPUSCULAR HEMOGLOBIN 37.7 PG (27.0-31.0); MEAN CORPUSCULAR VOLUME 110.7 FL (78-98); MEAN PLATELET VOLUME 9.7 FL (7.4-10.4); MONOCYTES # (AUTO) 0.9 X10'3 (0-0.9); MONOCYTES % (AUTO) 10.4 % (2-12); NEUTROPHILS % (AUTO) 78.9 % (42-75); PLATELET COUNT 131 X10'3 (140-440); RED BLOOD COUNT 3.37 X10'6 (4.70-6.10); WHITE BLOOD COUNT 8.8 X10'3 (4.5-11.0)
[2021-02-28 05:05] LABS: ALANINE AMINOTRANSFERASE 29 U/L (12-78); ALBUMIN 1.5 G/DL (3.4-5.0); ALBUMIN/GLOBULIN RATIO 0.4 (1.1-1.5); ANION GAP 8 (8-16); ASPARTATE AMINO TRANSFERASE 58 U/L (10-37); BILIRUBIN,TOTAL 2.9 MG/DL (0.1-1.0); BLOOD UREA NITROGEN 7 MG/DL (7-18); BUN/CREATININE RATIO 11.1 (5.4-32.0); CALCIUM 6.6 MG/DL (8.5-10.1); CHLORIDE 105 MMOL/L (99-107); CREATININE 0.63 MG/DL (0.60-1.10); GLUCOSE 75 MG/DL (70-104); MAGNESIUM 1.6 MG/DL (1.5-2.4); SODIUM 137 MMOL/L (135-145); TOTAL CARBON DIOXIDE 23.8 MMOL/L (24-32); TOTAL PROTEIN 4.9 G/DL (6.4-8.2); eGFR > 90 ML/MIN
[2021-02-28 05:06] LABS: ALKALINE PHOSPHATASE 86 IU/L (46-116); POTASSIUM 3.1 MMOL/L (3.5-5.1)
[2021-02-28] MEDS: potassium Cl 20mEq/100mL bag 100 ML IV PRN (05:38)
[2021-02-28] MEDS: K and/or MAG REPLACEMENT MC SCH ×2 (07:47→08:00)
[2021-02-28 07:53] LABS: POLYCHROMASIA 1+; TOTAL CELLS COUNTED 100
[2021-02-28 07:54] LABS: ANISOCYTOSIS 1+; PLATELET ESTIMATE DECREASED; SMUDGE CELLS FEW
[2021-02-28] MEDS: docusate sod 100mg capsule PO SCH ×2 (08:00→20:00)
[2021-02-28] MEDS: pantoprazole IV 40 MG in dextrose 5%-water 100 ML IV SCH (08:00)
--- NOTE | 2021-02-28 18:55 | NUR ---
Pt continues to be febrile after Tylenol dose. Gown, sheet and SCDs have been removed. Ice packs placed on in groin and in bilateral axillary. Will continue to assess and intervene as appropriate.
[2021-03-01] VITALS (24 sets, daily range): BP systolic 94–122; BP diastolic 46–67
[2021-03-01] MEDS: FENTANYL-0.9 % NACL/PF 100 ML IV PRN ×4 (02:30→21:29)
[2021-03-01 03:21] LABS: ABG BASE EXCESS -4.7 mmol/L (-2.0-2.0); ABG HCO3 21.7 mmol/L (22.0-26.0); ABG OXYGEN SATURATION 94.8 % (94-97); ABG PCO2 (T) 47.2 mmHg (35.0-48.0); ABG PO2 (T) 76.6 mmHg (75.0-100.0); ALLEN'S TEST POSITIVE; FCOHb 0.1 % (0.0-3.9); FMetHb 0.2 % (0.0-1.5); FO2Hb 94.5 % (94-97); PEEP 5 cm H2O; RESPIRATORY RATE 16 b/min; TIDAL VOLUME 500 mL; TOTAL HEMOGLOBIN 13.4 G/dl (14.0-18.0)
[2021-03-01 03:56] LABS: ALANINE AMINOTRANSFERASE 26 U/L (12-78); ALBUMIN 1.4 G/DL (3.4-5.0); ALBUMIN/GLOBULIN RATIO 0.4 (1.1-1.5); ALKALINE PHOSPHATASE 109 IU/L (46-116); ASPARTATE AMINO TRANSFERASE 66 U/L (10-37); BILIRUBIN,TOTAL 2.7 MG/DL (0.1-1.0); BLOOD UREA NITROGEN 6 MG/DL (7-18); BUN/CREATININE RATIO 8.7 (5.4-32.0); CALCIUM 7.4 MG/DL (8.5-10.1); CHLORIDE 106 MMOL/L (99-107); CREATININE 0.69 MG/DL (0.60-1.10); GLUCOSE 65 MG/DL (70-104); MAGNESIUM 1.8 MG/DL (1.5-2.4); TOTAL CARBON DIOXIDE 23.1 MMOL/L (24-32); TOTAL PROTEIN 5.1 G/DL (6.4-8.2); eGFR > 90 ML/MIN
[2021-03-01 04:06] LABS: BASOPHILS % (AUTO) 0.2 % (0-1); EOSINOPHILS # (AUTO) 0.1 X10'3 (0-0.9); EOSINOPHILS % (AUTO) 0.9 % (0-6); HEMATOCRIT 36.8 % (42.0-52.0); HEMOGLOBIN 12.4 g/dl (14.0-17.9); LYMPHOCYTES # (AUTO) 0.6 X10'3 (1.1-4.8); LYMPHOCYTES % (AUTO) 7.9 % (21-51); MEAN CORPUSCULAR HEMOGLOBIN 37.6 PG (27.0-31.0); MEAN CORPUSCULAR HGB CONC 33.7 g/dL (33.0-36.5); MEAN CORPUSCULAR VOLUME 111.6 FL (78-98); MEAN PLATELET VOLUME 9.6 FL (7.4-10.4); MONOCYTES # (AUTO) 0.8 X10'3 (0-0.9); MONOCYTES % (AUTO) 10.7 % (2-12); NEUTROPHILS # (AUTO) 6.3 X10'3 (1.8-7.7); NEUTROPHILS % (AUTO) 80.3 % (42-75); PLATELET COUNT 177 X10'3 (140-440); RED CELL DISTRIBUTION WIDTH 17.3 % (11.5-14.5); WHITE BLOOD COUNT 7.8 X10'3 (4.5-11.0)
[2021-03-01 04:25] LABS: ANION GAP 11 (8-16); SODIUM 140 MMOL/L (135-145)
[2021-03-01 04:26] LABS: POTASSIUM 2.8 MMOL/L (3.5-5.1)
[2021-03-01] MEDS: potassium Cl 20mEq/100mL bag 100 ML IV PRN ×2 (04:33→05:28)
[2021-03-01] MEDS ORDERED: POTASSIUM BICARB 20meq eff tab 20 MEQ TABLET.EFF PO ONE (05:00)
[2021-03-01] MEDS ORDERED: magnesium 2GM in 50ml NS 50 ML IV ONE (05:00)
[2021-03-01] MEDS: docusate sod 100mg capsule PO SCH ×2 (07:40→20:00)
[2021-03-01] MEDS: pantoprazole IV 40 MG in dextrose 5%-water 100 ML IV SCH (07:40)
[2021-03-01] MEDS: metroNIDAZOLE-Flagyl 500mg/NS 100 ML IV SCH ×2 (07:40→16:14)
[2021-03-01] MEDS: thiamine 100mg tablet PO SCH (07:40)
[2021-03-01] MEDS: K and/or MAG REPLACEMENT MC SCH ×2 (07:41)
[2021-03-01] MEDS: folic acid 1mg tablet PO SCH (07:41)
[2021-03-01] MEDS: normal saline 1000ml 1,000 ML IV SCH ×2 (07:41→16:21)
[2021-03-01] MEDS: propofol 1000mg/100ml bottle 100 ML IV SCH ×2 (07:55→13:28)
[2021-03-01] MEDS: aztreonam inj. 2,000 MG in dextrose 5%-water 100 ML IV SCH ×2 (08:53→16:19)
[2021-03-01 09:17] LABS: TOTAL CELLS COUNTED 100
[2021-03-01 09:18] LABS: ANISOCYTOSIS 1+; POLYCHROMASIA 1+
[2021-03-01 09:19] LABS: PLATELET ESTIMATE NORMAL; TOXIC GRANULATION 1+
--- NOTE | 2021-03-01 12:00 | NUR ---
IAP 12 Bladder Scan 62
--- NOTE | 2021-03-01 12:23 | NUR ---
Initial: Pt admitted w/ increasing abd pain and vomiting, dx of acute pancreatitis and alcohol intoxication per EMR. Pt s/p rapid response 02/26 and has subsequently been intubated and sedated, propofol currently at 16.2ml/hr providing 427kcals/day. No feeding at this time per MD. LBM likely 02/24 per ED note. Will continue to monitor and make recommendations as appropriate. Recs: 1. Advance to Heart Healthy diet as medically indicated upon extubation 2. IF TF, Continuous TF using Pivot at 55ml/hr goal to provide 1320ml volume, 1980kcals, 124g protein, 1002ml free water; to adjust formula and rate depending on Propofol 3. IF TF; Additional water flush 200ml Q4H; monitor serum Na 4. Routine Thiamine and folic acid for EtOH hx 5. Routine bowel care 6. Weekly wts Addendum: 03/01/21 at [address] Amended: Links added.
[2021-03-01] MEDS: albumin (Human) 5% 250ml 250 ML IV SCH ×2 (12:27→13:54)
[2021-03-01] MEDS: apixaban 5mg tablet PO SCH ×2 (12:28→20:57)
[2021-03-01] MEDS: morphine 2 MG/ML inj. syringe IV PRN (16:14)
--- NOTE | 2021-03-01 18:32 | NUR ---
IAP-12 Addendum: 03/01/21 at 1833 by Mario Johnson RN IAP is 12
[2021-03-01] MEDS: lactobacillus rhamnosus 10,000 MMU CELLS/CAPSULE PO SCH (20:57)
[2021-03-01] MEDS: acetaminophen 325mg tablet PO PRN (22:20)
[2021-03-02] VITALS (23 sets, daily range): BP systolic 86–118; BP diastolic 40–66
[2021-03-02] MEDS: aztreonam inj. 2,000 MG in dextrose 5%-water 100 ML IV SCH ×3 (00:23→16:32)
[2021-03-02] MEDS: metroNIDAZOLE-Flagyl 500mg/NS 100 ML IV SCH ×3 (00:23→16:32)
[2021-03-02] MEDS: propofol 1000mg/100ml bottle 100 ML IV SCH ×3 (00:32→19:44)
--- NOTE | 2021-03-02 02:42 | NUR ---
IAP is 10
[2021-03-02 02:56] LABS: BASOPHILS % (AUTO) 0.3 % (0-1); EOSINOPHILS # (AUTO) 0.2 X10'3 (0-0.9); EOSINOPHILS % (AUTO) 3.4 % (0-6); HEMATOCRIT 34.1 % (42.0-52.0); HEMOGLOBIN 11.5 g/dl (14.0-17.9); LYMPHOCYTES # (AUTO) 0.4 X10'3 (1.1-4.8); LYMPHOCYTES % (AUTO) 5.7 % (21-51); MEAN CORPUSCULAR HEMOGLOBIN 37.1 PG (27.0-31.0); MEAN CORPUSCULAR HGB CONC 33.7 g/dL (33.0-36.5); MEAN CORPUSCULAR VOLUME 109.9 FL (78-98); MEAN PLATELET VOLUME 9.1 FL (7.4-10.4); MONOCYTES # (AUTO) 0.5 X10'3 (0-0.9); MONOCYTES % (AUTO) 6.3 % (2-12); NEUTROPHILS % (AUTO) 84.3 % (42-75); PLATELET COUNT 210 X10'3 (140-440); RED CELL DISTRIBUTION WIDTH 17.4 % (11.5-14.5); WHITE BLOOD COUNT 7.2 X10'3 (4.5-11.0)
[2021-03-02 03:10] LABS: ALANINE AMINOTRANSFERASE 30 U/L (12-78); ALBUMIN 1.5 G/DL (3.4-5.0); ALBUMIN/GLOBULIN RATIO 0.4 (1.1-1.5); ALKALINE PHOSPHATASE 96 IU/L (46-116); ANION GAP 13 (8-16); ASPARTATE AMINO TRANSFERASE 82 U/L (10-37); BILIRUBIN,TOTAL 3.1 MG/DL (0.1-1.0); BLOOD UREA NITROGEN 7 MG/DL (7-18); BUN/CREATININE RATIO 12.3 (5.4-32.0); CALCIUM 7.5 MG/DL (8.5-10.1); CHLORIDE 106 MMOL/L (99-107); CREATININE 0.57 MG/DL (0.60-1.10); GLUCOSE 94 MG/DL (70-104); MAGNESIUM 2.1 MG/DL (1.5-2.4); PHOSPHORUS 1.8 MG/DL (2.3-4.5); SODIUM 142 MMOL/L (135-145); TOTAL CARBON DIOXIDE 23.3 MMOL/L (24-32); TOTAL PROTEIN 4.9 G/DL (6.4-8.2); eGFR > 90 ML/MIN
[2021-03-02 03:22] LABS: POTASSIUM 1.8 MMOL/L (3.5-5.1)
[2021-03-02] MEDS: potassium Cl 20mEq/100mL bag 100 ML IV PRN ×3 (03:29→05:53)
[2021-03-02] MEDS: dexmedetomidin/NS 400mcg/100ml 100 ML IV PRN ×5 (03:30→23:05)
[2021-03-02 03:32] LABS: ABG BASE EXCESS -2.8 mmol/L (-2.0-2.0); ABG HCO3 23.5 mmol/L (22.0-26.0); ABG OXYGEN SATURATION 94.4 % (94-97); ABG PCO2 (T) 46.6 mmHg (35.0-48.0); ABG PO2 (T) 70.9 mmHg (75.0-100.0); ALLEN'S TEST POSITIVE; FCOHb 0.3 % (0.0-3.9); FMetHb 0.2 % (0.0-1.5); FO2Hb 93.9 % (94-97); PEEP 5 cm H2O; RESPIRATORY RATE 20 b/min; TIDAL VOLUME 500 mL; TOTAL HEMOGLOBIN 12.6 G/dl (14.0-18.0)
[2021-03-02 04:31] LABS: ANISOCYTOSIS 1+; PLATELET ESTIMATE NORMAL; POLYCHROMASIA FEW; TOTAL CELLS COUNTED 100
[2021-03-02] MEDS: FENTANYL-0.9 % NACL/PF 100 ML IV PRN ×3 (05:35→23:10)
--- NOTE | 2021-03-02 06:14 | NUR ---
Problems reprioritized. Patient report given, questions answered & plan of care reviewed with GABRIELA Foster.
[2021-03-02] MEDS: normal saline 1000ml 1,000 ML IV SCH ×2 (06:30→12:29)
[2021-03-02] MEDS: pantoprazole IV 40 MG in dextrose 5%-water 100 ML IV SCH (07:22)
[2021-03-02] MEDS: apixaban 5mg tablet PO SCH ×2 (07:22→19:42)
[2021-03-02] MEDS: folic acid 1mg tablet PO SCH (07:22)
[2021-03-02] MEDS: lactobacillus rhamnosus 10,000 MMU CELLS/CAPSULE PO SCH ×2 (07:22→19:42)
[2021-03-02] MEDS: docusate sod 100mg capsule PO SCH ×2 (07:22→20:00)
[2021-03-02] MEDS: thiamine 100mg tablet PO SCH (07:22)
[2021-03-02] MEDS: K and/or MAG REPLACEMENT MC SCH (08:00)
--- NOTE | 2021-03-02 08:30 | NUR ---
Bladder Pressure checked IAP:9
[2021-03-02 09:27] LABS: ALBUMIN 1.5 G/DL (3.4-5.0); ANION GAP 7 (8-16); BLOOD UREA NITROGEN 9 MG/DL (7-18); BUN/CREATININE RATIO 13.2 (5.4-32.0); CALCIUM 7.8 MG/DL (8.5-10.1); CHLORIDE 105 MMOL/L (99-107); CREATININE 0.68 MG/DL (0.60-1.10); GLUCOSE 100 MG/DL (70-104); MAGNESIUM 2.1 MG/DL (1.5-2.4); SODIUM 137 MMOL/L (135-145); TOTAL CARBON DIOXIDE 24.8 MMOL/L (24-32); eGFR > 90 ML/MIN
[2021-03-02 09:31] LABS: POTASSIUM 3.6 MMOL/L (3.5-5.1)
[2021-03-02] MEDS ORDERED: albumin (Human) 5% 250ml 250 ML IV ONE ×4 (09:35→11:05)
--- NOTE | 2021-03-02 09:36 | NUR ---
Patient map in the 50's SBP goes between 90 and 88 notified MD received orders for albumin and levophed.
[2021-03-02] MEDS: NORepinephrine 8mg/ 250ml NS 250 ML IV SCH (09:59)
[2021-03-02] MEDS ORDERED: furosemide 40mg/4ml inj IV ONE (12:30)
[2021-03-03] VITALS (24 sets, daily range): BP systolic 89–108; BP diastolic 44–59
[2021-03-03] MEDS: aztreonam inj. 2,000 MG in dextrose 5%-water 100 ML IV SCH ×4 (00:50→23:20)
[2021-03-03] MEDS: metroNIDAZOLE-Flagyl 500mg/NS 100 ML IV SCH ×4 (00:50→23:20)
--- NOTE | 2021-03-03 01:04 | NUR ---
Beside IAP is 19
[2021-03-03] MEDS: dexmedetomidin/NS 400mcg/100ml 100 ML IV PRN ×4 (02:41→17:34)
[2021-03-03] MEDS: normal saline 1000ml 1,000 ML IV SCH (02:46)
[2021-03-03] MEDS: NORepinephrine 8mg/ 250ml NS 250 ML IV SCH ×2 (02:51→20:07)
[2021-03-03 03:49] LABS: BASOPHILS % (AUTO) 0.2 % (0-1); EOSINOPHILS # (AUTO) 0.3 X10'3 (0-0.9); EOSINOPHILS % (AUTO) 2.4 % (0-6); HEMATOCRIT 33.1 % (42.0-52.0); LYMPHOCYTES # (AUTO) 0.5 X10'3 (1.1-4.8); LYMPHOCYTES % (AUTO) 4.4 % (21-51); MEAN CORPUSCULAR HEMOGLOBIN 36.3 PG (27.0-31.0); MEAN CORPUSCULAR HGB CONC 33.1 g/dL (33.0-36.5); MEAN CORPUSCULAR VOLUME 109.7 FL (78-98); MEAN PLATELET VOLUME 9.3 FL (7.4-10.4); MONOCYTES # (AUTO) 0.4 X10'3 (0-0.9); MONOCYTES % (AUTO) 3.7 % (2-12); NEUTROPHILS # (AUTO) 10.1 X10'3 (1.8-7.7); NEUTROPHILS % (AUTO) 89.3 % (42-75); PLATELET COUNT 227 X10'3 (140-440); RED BLOOD COUNT 3.02 X10'6 (4.70-6.10); RED CELL DISTRIBUTION WIDTH 17.7 % (11.5-14.5); WHITE BLOOD COUNT 11.3 X10'3 (4.5-11.0)
[2021-03-03 03:58] LABS: ALANINE AMINOTRANSFERASE 32 U/L (12-78); ALBUMIN/GLOBULIN RATIO 0.6 (1.1-1.5); ALKALINE PHOSPHATASE 84 IU/L (46-116); ANION GAP 12 (8-16); ASPARTATE AMINO TRANSFERASE 88 U/L (10-37); BILIRUBIN,TOTAL 3.3 MG/DL (0.1-1.0); BLOOD UREA NITROGEN 14 MG/DL (7-18); CHLORIDE 107 MMOL/L (99-107); CREATININE 0.61 MG/DL (0.60-1.10); GLUCOSE 117 MG/DL (70-104); MAGNESIUM 2.2 MG/DL (1.5-2.4); SODIUM 142 MMOL/L (135-145); TOTAL CARBON DIOXIDE 22.9 MMOL/L (24-32); TOTAL PROTEIN 5.2 G/DL (6.4-8.2); eGFR > 90 ML/MIN
[2021-03-03 04:01] LABS: POTASSIUM 2.1 MMOL/L (3.5-5.1)
[2021-03-03 04:22] LABS: ABG BASE EXCESS -4.7 mmol/L (-2.0-2.0); ABG HCO3 19.9 mmol/L (22.0-26.0); ABG OXYGEN SATURATION 95.2 % (94-97); ABG PCO2 (T) 35.5 mmHg (35.0-48.0); ABG PO2 (T) 75.1 mmHg (75.0-100.0); ALLEN'S TEST POSITIVE; FCOHb 0.3 % (0.0-3.9); FMetHb 0.2 % (0.0-1.5); FO2Hb 94.7 % (94-97); PEEP 10 cm H2O; RESPIRATORY RATE 20 b/min; TIDAL VOLUME 500 mL; TOTAL HEMOGLOBIN 12.2 G/dl (14.0-18.0)
[2021-03-03] MEDS: potassium Cl 20mEq/100mL bag 100 ML IV PRN ×2 (04:54→06:19)
[2021-03-03] MEDS: folic acid 1mg tablet PO SCH (07:40)
[2021-03-03] MEDS: lactobacillus rhamnosus 10,000 MMU CELLS/CAPSULE PO SCH ×2 (07:40→19:14)
[2021-03-03] MEDS: thiamine 100mg tablet PO SCH (07:40)
[2021-03-03] MEDS: POTASSIUM BICARB 20meq eff tab 20 MEQ TABLET.EFF PO SCH ×3 (07:40→19:14)
[2021-03-03] MEDS: apixaban 5mg tablet PO SCH (07:40)
[2021-03-03] MEDS: pantoprazole IV 40 MG in dextrose 5%-water 100 ML IV SCH (07:41)
[2021-03-03] MEDS: docusate sodium 100mg/10ml UD cup NG SCH ×2 (09:27→19:13)
[2021-03-03] MEDS: FENTANYL-0.9 % NACL/PF 100 ML IV PRN (09:28)
[2021-03-03] MEDS ORDERED: furosemide 40mg/4ml inj IV ONE (10:15)
--- NOTE | 2021-03-03 11:27 | NUR ---
TF Consult: Pt remains intubated MAP 66 this AM during rounds w/ TF to start today per MD. Now off Propofol per EMR. TF recs below; will monitor for TF tolerance and adjustment needs. Recs: 1. Continuous TF using Vital AF at 75ml/hr goal to provide 1800ml volume/day, 2160 kcals, 135g protein, and 1458ml water. 2. Additional water flush 150ml Q4H; monitor serum Na 3. Routine Thiamine and folic acid for EtOH hx 4. Routine bowel care 5. Weekly wts Addendum: 03/03/21 at [address] Amended: Links added.
[2021-03-03 12:51] LABS: ALANINE AMINOTRANSFERASE 27 U/L (12-78); ALBUMIN 1.9 G/DL (3.4-5.0); ALBUMIN/GLOBULIN RATIO 0.6 (1.1-1.5); ALKALINE PHOSPHATASE 92 IU/L (46-116); ANION GAP 10 (8-16); ASPARTATE AMINO TRANSFERASE 87 U/L (10-37); BILIRUBIN,DIRECT 3.1 MG/DL (0-0.3); BILIRUBIN,TOTAL 3.6 MG/DL (0.1-1.0); BLOOD UREA NITROGEN 16 MG/DL (7-18); BUN/CREATININE RATIO 22.2 (5.4-32.0); CALCIUM 8.2 MG/DL (8.5-10.1); CHLORIDE 106 MMOL/L (99-107); CREATININE 0.72 MG/DL (0.60-1.10); GLUCOSE 132 MG/DL (70-104); SODIUM 139 MMOL/L (135-145); TOTAL PROTEIN 5.2 G/DL (6.4-8.2); eGFR > 90 ML/MIN
[2021-03-03 13:22] LABS: POTASSIUM 2.9 MMOL/L (3.5-5.1)
[2021-03-03] MEDS ORDERED: cloNIDine 0.1 mg tablet OGT PRN (15:05)
[2021-03-03] MEDS ORDERED: ondansetron 4mg rapidly disintigrating tab OGT PRN (15:06)
[2021-03-03] MEDS ORDERED: mag hydrox/Alum hydrox/simeth 30ml oral suspension OGT PRN (15:06)
[2021-03-03] MEDS: apixaban 5mg tablet OGT SCH (19:13)
[2021-03-04] VITALS (23 sets, daily range): BP systolic 90–108; BP diastolic 38–51
[2021-03-04] MEDS: dexmedetomidin/NS 400mcg/100ml 100 ML IV PRN ×4 (02:07→14:40)
[2021-03-04] MEDS: FENTANYL-0.9 % NACL/PF 100 ML IV PRN ×5 (02:07→16:28)
[2021-03-04 02:56] LABS: BASOPHILS # (AUTO) 0.1 X10'3 (0-0.2); BASOPHILS % (AUTO) 0.6 % (0-1); EOSINOPHILS # (AUTO) 0.2 X10'3 (0-0.9); EOSINOPHILS % (AUTO) 1.1 % (0-6); HEMATOCRIT 31.9 % (42.0-52.0); HEMOGLOBIN 10.7 g/dl (14.0-17.9); LYMPHOCYTES # (AUTO) 0.8 X10'3 (1.1-4.8); LYMPHOCYTES % (AUTO) 4.9 % (21-51); MEAN CORPUSCULAR HEMOGLOBIN 36.7 PG (27.0-31.0); MEAN CORPUSCULAR HGB CONC 33.6 g/dL (33.0-36.5); MEAN CORPUSCULAR VOLUME 109.4 FL (78-98); MEAN PLATELET VOLUME 9.3 FL (7.4-10.4); MONOCYTES # (AUTO) 0.5 X10'3 (0-0.9); NEUTROPHILS % (AUTO) 90.4 % (42-75); PLATELET COUNT 254 X10'3 (140-440); RED BLOOD COUNT 2.92 X10'6 (4.70-6.10); RED CELL DISTRIBUTION WIDTH 18.2 % (11.5-14.5); WHITE BLOOD COUNT 15.5 X10'3 (4.5-11.0)
[2021-03-04 03:18] LABS: ALANINE AMINOTRANSFERASE 26 U/L (12-78); ALBUMIN 1.7 G/DL (3.4-5.0); ALBUMIN/GLOBULIN RATIO 0.5 (1.1-1.5); ALKALINE PHOSPHATASE 97 IU/L (46-116); ANION GAP 10 (8-16); ASPARTATE AMINO TRANSFERASE 72 U/L (10-37); BILIRUBIN,TOTAL 3.4 MG/DL (0.1-1.0); BLOOD UREA NITROGEN 21 MG/DL (7-18); CALCIUM 8.3 MG/DL (8.5-10.1); CHLORIDE 106 MMOL/L (99-107); CREATININE 0.75 MG/DL (0.60-1.10); GLUCOSE 156 MG/DL (70-104); MAGNESIUM 2.1 MG/DL (1.5-2.4); POTASSIUM 3.7 MMOL/L (3.5-5.1); SODIUM 139 MMOL/L (135-145); TOTAL CARBON DIOXIDE 23.2 MMOL/L (24-32); TOTAL PROTEIN 5.1 G/DL (6.4-8.2); eGFR > 90 ML/MIN
[2021-03-04 04:57] LABS: ABG BASE EXCESS -2.9 mmol/L (-2.0-2.0); ABG HCO3 22.7 mmol/L (22.0-26.0); ABG OXYGEN SATURATION 94.8 % (94-97); ABG PCO2 (T) 43.2 mmHg (35.0-48.0); ABG PO2 (T) 76.7 mmHg (75.0-100.0); ALLEN'S TEST Modified; FCOHb 0.3 % (0.0-3.9); FMetHb 0.4 % (0.0-1.5); FO2Hb 94.1 % (94-97); PATIENT TEMPERATURE 37.2; PEEP 5 cm H2O; RESPIRATORY RATE 20 b/min; TIDAL VOLUME 500 mL; TOTAL HEMOGLOBIN 12.2 G/dl (14.0-18.0)
--- NOTE | 2021-03-04 06:00 | NUR ---
Patient in room ICU 2046. I have received report from Alo OCHOA and had the opportunity to ask questions and assume patient care.
[2021-03-04] MEDS: POTASSIUM BICARB 20meq eff tab 20 MEQ TABLET.EFF PO SCH ×3 (07:24→21:00)
[2021-03-04] MEDS: aztreonam inj. 2,000 MG in normal saline 100ml IV soln 100 ML IV SCH ×2 (07:24→15:55)
[2021-03-04] MEDS: folic acid 1mg tablet OGT SCH (07:24)
[2021-03-04] MEDS: lactobacillus rhamnosus 10,000 MMU CELLS/CAPSULE PO SCH ×2 (07:24→19:34)
[2021-03-04] MEDS: apixaban 5mg tablet OGT SCH ×2 (07:24→19:34)
[2021-03-04] MEDS: docusate sodium 100mg/10ml UD cup NG SCH ×2 (07:24→19:34)
[2021-03-04] MEDS: metroNIDAZOLE-Flagyl 500mg/NS 100 ML IV SCH ×2 (07:24→15:56)
[2021-03-04] MEDS: pantoprazole IV 40 MG in dextrose 5%-water 100 ML IV SCH (07:24)
[2021-03-04] MEDS: thiamine 100mg tablet OGT SCH (07:25)
[2021-03-04] MEDS ORDERED: normal saline 1000ml 1,000 ML IV ONE (10:25)
[2021-03-04 11:40] LABS: ALBUMIN 1.5 G/DL (3.4-5.0); ANION GAP 9 (8-16); BLOOD UREA NITROGEN 25 MG/DL (7-18); BUN/CREATININE RATIO 27.8 (5.4-32.0); CALCIUM 7.6 MG/DL (8.5-10.1); CHLORIDE 110 MMOL/L (99-107); GLUCOSE 177 MG/DL (70-104); POTASSIUM 4.3 MMOL/L (3.5-5.1); PREALBUMIN 3.9 MG/DL (19-36); SODIUM 141 MMOL/L (135-145); TOTAL CARBON DIOXIDE 22.3 MMOL/L (24-32); eGFR > 90 ML/MIN
[2021-03-04] MEDS ORDERED: furosemide 10 MG/1 ML 10ml inj IV ONE (12:45)
[2021-03-04] MEDS: NORepinephrine 8mg/ 250ml NS 250 ML IV SCH (13:23)
--- NOTE | 2021-03-04 13:30 | NUR ---
Reassessment: Pt remains intubated and sedated, TF has begun and is currently infusing Vital AF at 50ml/hr per EMR and advancing to goal of 75ml/hr, pt tolerating well. No BM documented this admit, receiving routine colace. May benefit from additional bowel care. No change to nutrition intervention at this time, will continue to monitor Recs: 1. Continuous TF using Vital AF at 75ml/hr goal to provide 1800ml volume/day, 2160 kcals, 135g protein, and 1458ml water. 2. Additional water flush 150ml Q4H; monitor serum Na 3. Routine Thiamine and folic acid for EtOH hx 4. Routine bowel care 5. Weekly wts Addendum: 03/04/21 at [address] Amended: Links added.
[2021-03-04] MEDS ORDERED: VECuronium br 10mg inj. IV ONE (17:30)
[2021-03-04] MEDS ORDERED: albumin (Human) 5% 250ml 250 ML IV ONE (18:35)
[2021-03-04] MEDS: furosemide inj 100 MG in normal saline 100ml IV soln 90 ML IV SCH (18:35)
--- NOTE | 2021-03-04 18:35 | NUR ---
Problems reprioritized. Patient report given, questions answered & plan of care reviewed with Alo OCHOA.
[2021-03-04] MEDS ORDERED: propofol 1000mg/100ml bottle 100 ML IV ONE (21:40)
[2021-03-04] MEDS: propofol 1000mg/100ml bottle 100 ML IV SCH (22:07)
[2021-03-04 22:17] LABS: TRIGLYCERIDES 502 MG/DL (20-135)
[2021-03-05] VITALS (24 sets, daily range): BP systolic 91–117; BP diastolic 37–51
[2021-03-05] MEDS: aztreonam inj. 2,000 MG in normal saline 100ml IV soln 100 ML IV SCH ×3 (00:24→15:32)
[2021-03-05] MEDS: metroNIDAZOLE-Flagyl 500mg/NS 100 ML IV SCH ×3 (00:24→15:32)
[2021-03-05] MEDS: dexmedetomidin/NS 400mcg/100ml 100 ML IV PRN ×4 (01:05→16:04)
[2021-03-05] MEDS: FENTANYL-0.9 % NACL/PF 100 ML IV PRN ×3 (01:05→14:15)
[2021-03-05 03:06] LABS: EOSINOPHILS # (AUTO) 0.1 X10'3 (0-0.9); NEUTROPHILS # (AUTO) 12.2 X10'3 (1.8-7.7)
[2021-03-05 03:09] LABS: BASOPHILS % (AUTO) 0.2 % (0-1); HEMATOCRIT 29.8 % (42.0-52.0); HEMOGLOBIN 10.1 g/dl (14.0-17.9); LYMPHOCYTES # (AUTO) 0.9 X10'3 (1.1-4.8); LYMPHOCYTES % (AUTO) 6.6 % (21-51); MEAN CORPUSCULAR HEMOGLOBIN 37.2 PG (27.0-31.0); MEAN CORPUSCULAR HGB CONC 33.8 g/dL (33.0-36.5); MEAN CORPUSCULAR VOLUME 110.1 FL (78-98); MEAN PLATELET VOLUME 9.9 FL (7.4-10.4); MONOCYTES # (AUTO) 0.5 X10'3 (0-0.9); MONOCYTES % (AUTO) 3.3 % (2-12); NEUTROPHILS % (AUTO) 88.9 % (42-75); PLATELET COUNT 248 X10'3 (140-440); RED BLOOD COUNT 2.71 X10'6 (4.70-6.10); RED CELL DISTRIBUTION WIDTH 18.4 % (11.5-14.5); WHITE BLOOD COUNT 13.7 X10'3 (4.5-11.0)
[2021-03-05 03:11] LABS: ALANINE AMINOTRANSFERASE 28 U/L (12-78); ALBUMIN 1.7 G/DL (3.4-5.0); ALBUMIN/GLOBULIN RATIO 0.5 (1.1-1.5); ALKALINE PHOSPHATASE 116 IU/L (46-116); ANION GAP 10 (8-16); ASPARTATE AMINO TRANSFERASE 66 U/L (10-37); BILIRUBIN,TOTAL 3.3 MG/DL (0.1-1.0); BLOOD UREA NITROGEN 36 MG/DL (7-18); BUN/CREATININE RATIO 32.1 (5.4-32.0); CALCIUM 7.9 MG/DL (8.5-10.1); CHLORIDE 108 MMOL/L (99-107); CREATININE 1.12 MG/DL (0.60-1.10); GLUCOSE 161 MG/DL (70-104); MAGNESIUM 2.1 MG/DL (1.5-2.4); SODIUM 141 MMOL/L (135-145); TOTAL PROTEIN 5.2 G/DL (6.4-8.2); TRIGLYCERIDES 477 MG/DL (20-135); eGFR 77 ML/MIN
[2021-03-05 03:43] LABS: ABG BASE EXCESS -3.8 mmol/L (-2.0-2.0); ABG HCO3 21.4 mmol/L (22.0-26.0); ABG OXYGEN SATURATION 94.1 % (94-97); ABG PCO2 (T) 40.3 mmHg (35.0-48.0); ABG PO2 (T) 72.5 mmHg (75.0-100.0); ALLEN'S TEST Modified; FCOHb 0.3 % (0.0-3.9); FMetHb 0.1 % (0.0-1.5); FO2Hb 93.7 % (94-97); PATIENT TEMPERATURE 37.5; PEEP 5 cm H2O; RESPIRATORY RATE 20 b/min; TIDAL VOLUME 500 mL; TOTAL HEMOGLOBIN 10.9 G/dl (14.0-18.0)
[2021-03-05 04:20] LABS: ANISOCYTOSIS 2+; NUCLEATED RED BLOOD CELLS 2 /100WBC (0-0); PLATELET ESTIMATE NORMAL; TOTAL CELLS COUNTED 100
[2021-03-05 04:21] LABS: STOMATOCYTES 2+
[2021-03-05] MEDS ORDERED: furosemide 10 MG/1 ML 10ml inj IV ONE (05:10)
[2021-03-05] MEDS: furosemide inj 100 MG in normal saline 100ml IV soln 90 ML IV SCH ×2 (05:22→13:40)
[2021-03-05] MEDS: NORepinephrine 8mg/ 250ml NS 250 ML IV SCH ×2 (06:39→23:55)
--- NOTE | 2021-03-05 06:42 | NUR ---
Patient in room ICU 2046. I have received report from Alo OCHOA and had the opportunity to ask questions and assume patient care.
[2021-03-05] MEDS: pantoprazole IV 40 MG in normal saline 100ml IV soln 100 ML IV SCH (07:25)
[2021-03-05] MEDS: propofol 1000mg/100ml bottle 100 ML IV SCH (08:47)
[2021-03-05] MEDS: thiamine 100mg tablet OGT SCH (08:47)
[2021-03-05] MEDS: docusate sodium 100mg/10ml UD cup NG SCH ×2 (08:47→20:00)
[2021-03-05] MEDS: apixaban 5mg tablet OGT SCH ×2 (08:47→20:00)
[2021-03-05] MEDS: metolazone 2.5mg tablet PO SCH (08:47)
[2021-03-05] MEDS: folic acid 1mg tablet OGT SCH (08:47)
[2021-03-05] MEDS: lactobacillus rhamnosus 10,000 MMU CELLS/CAPSULE PO SCH ×2 (08:48→20:00)
[2021-03-05] MEDS: acetaminophen 325mg tablet OGT PRN (09:14)
[2021-03-05] MEDS ORDERED: glucagon, human recombinant 1mg kit SUBCUT PRN (09:20)
[2021-03-05] MEDS ORDERED: dextrose ORAL solution 15 GM/59 ML bottle PO PRN ×2 (09:20)
[2021-03-05] MEDS ORDERED: dextrose 50%-water 50ml dispensing syringe IV PRN ×2 (09:20)
[2021-03-05 09:51] LABS: CLARITY,URINE SLIGHTLY CLOUDY (Clear); GLUCOSE, URINE NEGATIVE (Neg); KETONES,URINE TRACE mg/dl (Neg); LEUKOCYTE ESTERASE ,URINE TRACE (Neg); NITRITES, URINE NEGATIVE (Neg); OCCULT BLOOD,URINE MODERATE (Neg); PROTEIN,URINE NEGATIVE (Neg)
[2021-03-05 09:57] LABS: UA COLLECTION TYPE NON-SPECIFIED
[2021-03-05 10:00] LABS: COLOR,URINE DARK YELLOW (Yellow)
[2021-03-05 10:01] LABS: ALBUMIN 1.6 G/DL (3.4-5.0); ANION GAP 8 (8-16); BLOOD UREA NITROGEN 40 MG/DL (7-18); BUN/CREATININE RATIO 31.3 (5.4-32.0); CALCIUM 7.8 MG/DL (8.5-10.1); CHLORIDE 108 MMOL/L (99-107); CREATININE 1.28 MG/DL (0.60-1.10); GLUCOSE 166 MG/DL (70-104); POTASSIUM 4.7 MMOL/L (3.5-5.1); SODIUM 139 MMOL/L (135-145); TOTAL CARBON DIOXIDE 23.1 MMOL/L (24-32); eGFR 66 ML/MIN
[2021-03-05 10:02] LABS: BACTERIA,URINE FEW /HPF (Neg); MUCUS STRANDS NONE SEEN /LPF (Neg); SODIUM,URINE RANDOM < 15 MEQ/L; SQUAMOUS EPITHELIAL CELL,UR NONE SEEN /LPF (FEW); WBC,URINE 0-4 /HPF (0-4)
[2021-03-05] MEDS: midazolam 100mg in NS 100ml 100 ML IV PRN (11:24)
[2021-03-05] MEDS: albumin (human) 25% 100 ML IV solution IV SCH ×2 (12:19→21:20)
[2021-03-05 16:18] LABS: ALBUMIN 1.9 G/DL (3.4-5.0); ANION GAP 10 (8-16); BLOOD UREA NITROGEN 42 MG/DL (7-18); BUN/CREATININE RATIO 25.1 (5.4-32.0); CALCIUM 7.9 MG/DL (8.5-10.1); CHLORIDE 109 MMOL/L (99-107); CREATININE 1.67 MG/DL (0.60-1.10); GLUCOSE 173 MG/DL (70-104); POTASSIUM 4.7 MMOL/L (3.5-5.1); SODIUM 141 MMOL/L (135-145); TOTAL CARBON DIOXIDE 22.4 MMOL/L (24-32); eGFR 49 ML/MIN
--- NOTE | 2021-03-05 18:34 | NUR ---
Problems reprioritized. Patient report given, questions answered & plan of care reviewed with Alo OCHOA.
[2021-03-05] MEDS: levoFLOXACIN-Levaquin 750MG/D5 150 ML IV SCH (19:00)
[2021-03-05] MEDS ORDERED: lactobacillus rhamnosus 10,000 MMU CELLS/CAPSULE PO SCH (20:00)
[2021-03-05] MEDS: methylPREDNISolone sod succ 125mg/2ml vial IV SCH (20:00)
[2021-03-05] MEDS: insulin glargine (Lantus) pen - multi-dose SQ SCH (21:00)
[2021-03-06] VITALS (28 sets, daily range): BP systolic 93–143; BP diastolic 39–78
[2021-03-06] MEDS ORDERED: piperacillin/tazo 3.375gm/50ml 50 ML IV SCH
[2021-03-06] MEDS: furosemide inj 100 MG in normal saline 100ml IV soln 90 ML IV SCH ×4 (00:35→22:42)
[2021-03-06] MEDS: methylPREDNISolone sod succ 125mg/2ml vial IV SCH ×4 (02:00→21:38)
[2021-03-06 02:53] LABS: BASOPHILS % (AUTO) 0.2 % (0-1); EOSINOPHILS % (AUTO) 0.3 % (0-6); HEMATOCRIT 30.4 % (42.0-52.0); HEMOGLOBIN 9.7 g/dl (14.0-17.9); LYMPHOCYTES # (AUTO) 0.6 X10'3 (1.1-4.8); LYMPHOCYTES % (AUTO) 3.7 % (21-51); MEAN CORPUSCULAR HEMOGLOBIN 36.1 PG (27.0-31.0); MEAN CORPUSCULAR HGB CONC 31.9 g/dL (33.0-36.5); MEAN CORPUSCULAR VOLUME 113.1 FL (78-98); MEAN PLATELET VOLUME 10.1 FL (7.4-10.4); MONOCYTES # (AUTO) 0.2 X10'3 (0-0.9); MONOCYTES % (AUTO) 1.3 % (2-12); NEUTROPHILS # (AUTO) 14.8 X10'3 (1.8-7.7); NEUTROPHILS % (AUTO) 94.5 % (42-75); PLATELET COUNT 215 X10'3 (140-440); RED BLOOD COUNT 2.69 X10'6 (4.70-6.10); RED CELL DISTRIBUTION WIDTH 18.9 % (11.5-14.5); WHITE BLOOD COUNT 15.7 X10'3 (4.5-11.0)
[2021-03-06 03:04] LABS: ABG BASE EXCESS -7.3 mmol/L (-2.0-2.0); ABG HCO3 19.8 mmol/L (22.0-26.0); ABG OXYGEN SATURATION 89.7 % (94-97); ABG PCO2 (T) 45.3 mmHg (35.0-48.0); ABG PO2 (T) 58.3 mmHg (75.0-100.0); ALLEN'S TEST Modified; FCOHb 0.3 % (0.0-3.9); FMetHb 0.2 % (0.0-1.5); FO2Hb 89.3 % (94-97); PATIENT TEMPERATURE 36.4; PEEP 5 cm H2O; RESPIRATORY RATE 20 b/min; TIDAL VOLUME 500 mL; TOTAL HEMOGLOBIN 11.2 G/dl (14.0-18.0)
[2021-03-06 03:14] LABS: ALANINE AMINOTRANSFERASE 25 U/L (12-78); ALBUMIN 1.7 G/DL (3.4-5.0); ALBUMIN/GLOBULIN RATIO 0.5 (1.1-1.5); ALKALINE PHOSPHATASE 111 IU/L (46-116); ANION GAP 7 (8-16); ASPARTATE AMINO TRANSFERASE 63 U/L (10-37); BILIRUBIN,TOTAL 3.4 MG/DL (0.1-1.0); BLOOD UREA NITROGEN 46 MG/DL (7-18); BUN/CREATININE RATIO 23.4 (5.4-32.0); CALCIUM 8.3 MG/DL (8.5-10.1); CHLORIDE 109 MMOL/L (99-107); CREATININE 1.97 MG/DL (0.60-1.10); GLUCOSE 231 MG/DL (70-104); MAGNESIUM 2.2 MG/DL (1.5-2.4); SODIUM 139 MMOL/L (135-145); TOTAL CARBON DIOXIDE 22.6 MMOL/L (24-32); TOTAL PROTEIN 5.4 G/DL (6.4-8.2); eGFR 40 ML/MIN
[2021-03-06 03:27] LABS: POTASSIUM 6.5 MMOL/L (3.5-5.1)
[2021-03-06 03:45] LABS: ANISOCYTOSIS 2+; PLATELET ESTIMATE NORMAL; TOTAL CELLS COUNTED 100
[2021-03-06 03:46] LABS: POLYCHROMASIA FEW; STOMATOCYTES 2+
[2021-03-06] MEDS ORDERED: PATIROMER CALCIUM SORBITEX 8.4 GM POWD.PACK PO ONE (04:50)
[2021-03-06] MEDS: lactobacillus rhamnosus 10,000 MMU CELLS/CAPSULE PO SCH ×2 (07:24→21:47)
[2021-03-06] MEDS: docusate sodium 100mg/10ml UD cup NG SCH ×2 (07:24→20:00)
[2021-03-06] MEDS: folic acid 1mg tablet OGT SCH (07:24)
[2021-03-06] MEDS: thiamine 100mg tablet OGT SCH (07:24)
[2021-03-06] MEDS: apixaban 5mg tablet OGT SCH ×2 (07:24→21:47)
[2021-03-06] MEDS: aztreonam inj. 2,000 MG in normal saline 100ml IV soln 100 ML IV SCH ×4 (07:25→16:35)
[2021-03-06] MEDS: metroNIDAZOLE-Flagyl 500mg/NS 100 ML IV SCH ×3 (07:25→16:35)
[2021-03-06] MEDS: pantoprazole IV 40 MG in normal saline 100ml IV soln 100 ML IV SCH (07:25)
[2021-03-06] MEDS: levoFLOXACIN-Levaquin 750MG/D5 150 ML IV SCH (07:25)
[2021-03-06] MEDS: albumin (human) 25% 100 ML IV solution IV SCH ×3 (07:27→21:48)
[2021-03-06] MEDS: metolazone 2.5mg tablet PO SCH (07:29)
[2021-03-06] MEDS ORDERED: CALCIUM GLUC 1gm/50ml NACL,iso 50 ML IV ONE (07:30)
[2021-03-06] MEDS ORDERED: insulin regular, human U-100 3ml vial - multi-dose IV ONE (07:30)
[2021-03-06] MEDS ORDERED: dextrose 50%-water 50ml dispensing syringe IV ONE (07:30)
[2021-03-06] MEDS: FENTANYL-0.9 % NACL/PF 100 ML IV PRN ×4 (10:32→21:44)
[2021-03-06] MEDS: SODIUM ZIRCONIUM CYCLOSILICATE 10 GM POWD.PACK PO SCH ×4 (10:37→18:36)
[2021-03-06 13:34] LABS: ALBUMIN 2.1 G/DL (3.4-5.0); ANION GAP 14 (8-16); BLOOD UREA NITROGEN 56 MG/DL (7-18); BUN/CREATININE RATIO 35.7 (5.4-32.0); CALCIUM 8.7 MG/DL (8.5-10.1); CHLORIDE 105 MMOL/L (99-107); CREATININE 1.57 MG/DL (0.60-1.10); GLUCOSE 345 MG/DL (70-104); POTASSIUM 5.1 MMOL/L (3.5-5.1); SODIUM 139 MMOL/L (135-145); eGFR 52 ML/MIN
[2021-03-06] MEDS: insulin regular, human U-100 3ml vial - multi-dose SQ SCH ×2 (14:30→21:25)
[2021-03-06 15:29] LABS: LIPASE 141 U/L (73-393)
[2021-03-06] MEDS: dexmedetomidin/NS 400mcg/100ml 100 ML IV PRN ×2 (17:17→23:29)
[2021-03-06] MEDS: midazolam 100mg in NS 100ml 100 ML IV PRN (17:59)
[2021-03-06] MEDS: insulin glargine (Lantus) pen - multi-dose SQ SCH (21:26)
[2021-03-06 21:44] LABS: ALBUMIN 2.2 G/DL (3.4-5.0); ANION GAP 16 (8-16); BLOOD UREA NITROGEN 60 MG/DL (7-18); BUN/CREATININE RATIO 39.7 (5.4-32.0); CALCIUM 8.6 MG/DL (8.5-10.1); CHLORIDE 105 MMOL/L (99-107); CREATININE 1.51 MG/DL (0.60-1.10); GLUCOSE 420 MG/DL (70-104); MAGNESIUM 2.1 MG/DL (1.5-2.4); PHOSPHORUS 4.9 MG/DL (2.3-4.5); POTASSIUM 4.2 MMOL/L (3.5-5.1); SODIUM 142 MMOL/L (135-145); TOTAL CARBON DIOXIDE 21.4 MMOL/L (24-32); eGFR 55 ML/MIN
[2021-03-07] VITALS (24 sets, daily range): BP systolic 112–156; BP diastolic 50–80
[2021-03-07] MEDS: aztreonam inj. 2,000 MG in normal saline 100ml IV soln 100 ML IV SCH ×4 (00:02→23:18)
[2021-03-07] MEDS: metroNIDAZOLE-Flagyl 500mg/NS 100 ML IV SCH ×2 (01:25→08:45)
[2021-03-07] MEDS: insulin regular, human U-100 3ml vial - multi-dose SQ SCH ×3 (02:44→13:56)
[2021-03-07] MEDS: methylPREDNISolone sod succ 125mg/2ml vial IV SCH ×4 (02:47→19:27)
[2021-03-07] MEDS: FENTANYL-0.9 % NACL/PF 100 ML IV PRN ×2 (02:57→14:56)
[2021-03-07 03:14] LABS: ABG BASE EXCESS -0.7 mmol/L (-2.0-2.0); ABG HCO3 23.8 mmol/L (22.0-26.0); ABG OXYGEN SATURATION 93.3 % (94-97); ABG PCO2 (T) 38.3 mmHg (35.0-48.0); ABG PO2 (T) 66.6 mmHg (75.0-100.0); ALLEN'S TEST Modified; FCOHb 0.3 % (0.0-3.9); FMetHb 0.2 % (0.0-1.5); FO2Hb 92.8 % (94-97); PATIENT TEMPERATURE 36.7; PEEP 5 cm H2O; RESPIRATORY RATE 24 b/min; TIDAL VOLUME 500 mL; TOTAL HEMOGLOBIN 11.3 G/dl (14.0-18.0)
[2021-03-07] MEDS: dexmedetomidin/NS 400mcg/100ml 100 ML IV PRN ×6 (03:16→23:24)
[2021-03-07 03:46] LABS: BASOPHILS % (AUTO) 0.1 % (0-1); EOSINOPHILS % (AUTO) 0 % (0-6); HEMATOCRIT 29.8 % (42.0-52.0); HEMOGLOBIN 9.8 g/dl (14.0-17.9); LYMPHOCYTES # (AUTO) 0.6 X10'3 (1.1-4.8); LYMPHOCYTES % (AUTO) 4.3 % (21-51); MEAN CORPUSCULAR HGB CONC 32.8 g/dL (33.0-36.5); MEAN PLATELET VOLUME 10.6 FL (7.4-10.4); MONOCYTES # (AUTO) 0.3 X10'3 (0-0.9); MONOCYTES % (AUTO) 2.3 % (2-12); NEUTROPHILS # (AUTO) 12.5 X10'3 (1.8-7.7); NEUTROPHILS % (AUTO) 93.3 % (42-75); PLATELET COUNT 200 X10'3 (140-440); RED BLOOD COUNT 2.71 X10'6 (4.70-6.10); RED CELL DISTRIBUTION WIDTH 18.3 % (11.5-14.5); WHITE BLOOD COUNT 13.5 X10'3 (4.5-11.0)
[2021-03-07 04:13] LABS: ALANINE AMINOTRANSFERASE 22 U/L (12-78); ALBUMIN 2.5 G/DL (3.4-5.0); ALBUMIN/GLOBULIN RATIO 0.8 (1.1-1.5); ALKALINE PHOSPHATASE 121 IU/L (46-116); ANION GAP 14 (8-16); ASPARTATE AMINO TRANSFERASE 37 U/L (10-37); BILIRUBIN,TOTAL 2.2 MG/DL (0.1-1.0); BLOOD UREA NITROGEN 62 MG/DL (7-18); BUN/CREATININE RATIO 41.3 (5.4-32.0); CALCIUM 8.7 MG/DL (8.5-10.1); CHLORIDE 104 MMOL/L (99-107); LIPASE 95 U/L (73-393); MAGNESIUM 2.1 MG/DL (1.5-2.4); POTASSIUM 3.2 MMOL/L (3.5-5.1); SODIUM 142 MMOL/L (135-145); TOTAL CARBON DIOXIDE 23.8 MMOL/L (24-32); TOTAL PROTEIN 5.8 G/DL (6.4-8.2); eGFR 55 ML/MIN
[2021-03-07 04:17] LABS: GLUCOSE 493 MG/DL (70-104)
[2021-03-07 04:44] LABS: ANISOCYTOSIS 2+; LARGE PLATELETS MODERATE; NUCLEATED RED BLOOD CELLS 2 /100WBC (0-0); PLATELET ESTIMATE NORMAL; STOMATOCYTES 2+; TOTAL CELLS COUNTED 100
[2021-03-07 04:45] LABS: POLYCHROMASIA 1+; TARGET CELLS FEW; TOXIC GRANULATION 1+
[2021-03-07] MEDS ORDERED: potassium Cl 20 mEq/100mL bag IV ONE (04:55)
[2021-03-07] MEDS: furosemide inj 100 MG in normal saline 100ml IV soln 90 ML IV SCH ×2 (05:10→23:19)
[2021-03-07] MEDS: midazolam 100mg in NS 100ml 100 ML IV PRN ×3 (06:43→22:56)
[2021-03-07] MEDS: levoFLOXACIN-Levaquin 750MG/D5 150 ML IV SCH (08:45)
[2021-03-07] MEDS: albumin (human) 25% 100 ML IV solution IV SCH (08:45)
[2021-03-07] MEDS: metolazone 2.5mg tablet PO SCH (08:46)
[2021-03-07] MEDS: apixaban 5mg tablet OGT SCH ×2 (08:46→19:28)
[2021-03-07] MEDS: docusate sodium 100mg/10ml UD cup NG SCH ×2 (08:46→19:27)
[2021-03-07] MEDS: thiamine 100mg tablet OGT SCH (08:46)
[2021-03-07] MEDS: lansoprazole 15mg solutab OGT SCH (08:46)
[2021-03-07] MEDS: lactobacillus rhamnosus 10,000 MMU CELLS/CAPSULE PO SCH ×2 (08:46→19:27)
[2021-03-07] MEDS: folic acid 1mg tablet OGT SCH (08:47)
[2021-03-07 09:59] LABS: ALBUMIN 2.4 G/DL (3.4-5.0); ANION GAP 15 (8-16); BLOOD UREA NITROGEN 60 MG/DL (7-18); BUN/CREATININE RATIO 43.8 (5.4-32.0); CALCIUM 8.4 MG/DL (8.5-10.1); CHLORIDE 104 MMOL/L (99-107); CREATININE 1.37 MG/DL (0.60-1.10); PHOSPHORUS 2.8 MG/DL (2.3-4.5); SODIUM 145 MMOL/L (135-145); TOTAL CARBON DIOXIDE 25.8 MMOL/L (24-32); eGFR 61 ML/MIN
[2021-03-07 10:03] LABS: GLUCOSE 517 MG/DL (70-104)
[2021-03-07] MEDS: potassium Cl 20mEq/100mL bag 100 ML IV PRN ×9 (10:17→23:56)
[2021-03-07] MEDS ORDERED: dextrose ORAL solution 15 GM/59 ML bottle OGT PRN ×2 (14:00)
[2021-03-07] MEDS ORDERED: diphenhydrAMINE 25 MG/10 ML UD oral solution OGT PRN (14:05)
[2021-03-07 16:00] LABS: ALBUMIN 2.3 G/DL (3.4-5.0); ANION GAP 12 (8-16); BLOOD UREA NITROGEN 57 MG/DL (7-18); BUN/CREATININE RATIO 46.7 (5.4-32.0); CHLORIDE 109 MMOL/L (99-107); CREATININE 1.22 MG/DL (0.60-1.10); GLUCOSE 390 MG/DL (70-104); PHOSPHORUS 2.3 MG/DL (2.3-4.5); SODIUM 149 MMOL/L (135-145); eGFR 70 ML/MIN
[2021-03-07 16:09] LABS: POTASSIUM 2.3 MMOL/L (3.5-5.1)
[2021-03-07] MEDS ORDERED: dextrose 50%-water 50ml dispensing syringe IV PRN (16:30)
[2021-03-07] MEDS: Insulin Reg/NS 100units/100mL 100 ML IV SCH (17:51)
[2021-03-07] MEDS: potassium Cl 20 mEq SR tablet PO PRN (19:28)
[2021-03-07] MEDS: acetaminophen 325mg tablet OGT PRN (19:29)
[2021-03-07] MEDS: metroNIDAZOLE 500mg tablet PO SCH (19:32)
[2021-03-07] MEDS ORDERED: insulin Lispro (HumaLOG) vial - multi-dose SQ SCH (20:00)
[2021-03-07] MEDS: insulin glargine (Lantus) pen - multi-dose SQ SCH (21:04)
[2021-03-08] VITALS (24 sets, daily range): BP systolic 107–131; BP diastolic 57–78
[2021-03-08] MEDS: FENTANYL-0.9 % NACL/PF 100 ML IV PRN ×4 (00:58→21:00)
[2021-03-08 02:53] LABS: ABG BASE EXCESS 2.4 mmol/L (-2.0-2.0); ABG HCO3 26.6 mmol/L (22.0-26.0); ABG OXYGEN SATURATION 96.2 % (94-97); ALLEN'S TEST Modified; FCOHb 0.2 % (0.0-3.9); FMetHb 0.3 % (0.0-1.5); FO2Hb 95.7 % (94-97); PATIENT TEMPERATURE 37.9; PEEP 5 cm H2O; RESPIRATORY RATE 24 b/min; TIDAL VOLUME 500 mL; TOTAL HEMOGLOBIN 10.5 G/dl (14.0-18.0)
[2021-03-08 03:08] LABS: BASOPHILS % (AUTO) 0.3 % (0-1); EOSINOPHILS % (AUTO) 0 % (0-6); HEMATOCRIT 27.7 % (42.0-52.0); HEMOGLOBIN 9.4 g/dl (14.0-17.9); LYMPHOCYTES # (AUTO) 0.5 X10'3 (1.1-4.8); LYMPHOCYTES % (AUTO) 3.4 % (21-51); MEAN CORPUSCULAR HEMOGLOBIN 36.4 PG (27.0-31.0); MEAN CORPUSCULAR HGB CONC 33.8 g/dL (33.0-36.5); MEAN CORPUSCULAR VOLUME 107.4 FL (78-98); MEAN PLATELET VOLUME 10.8 FL (7.4-10.4); MONOCYTES # (AUTO) 0.4 X10'3 (0-0.9); MONOCYTES % (AUTO) 3.2 % (2-12); NEUTROPHILS # (AUTO) 12.3 X10'3 (1.8-7.7); NEUTROPHILS % (AUTO) 93.1 % (42-75); PLATELET COUNT 207 X10'3 (140-440); RED BLOOD COUNT 2.57 X10'6 (4.70-6.10); RED CELL DISTRIBUTION WIDTH 18.9 % (11.5-14.5); WHITE BLOOD COUNT 13.2 X10'3 (4.5-11.0)
--- NOTE | 2021-03-08 03:35 | NUR ---
This is a 30-year-old male, admitted 02/24/2021, day 11 of hospitalization, full code, allergies to shellfish and Amoxicillin no isolation, bilateral soft wrist restraints, orders and documentation in accordance with facility policies and procedures. 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 Patient reports occasionally slight blood in his vomit. Patient reports that this may going on for 4 hours. Patient has not had this before. Patient reports that the pain is in his epigastric area as well as diffuse abdominal pain. Patient is a heavy drinker with his last drink of cider being around 2300 last night. Patient complains of chills and sweating today. Patient reports that he had a normal bowel movement this morning without blood. Patient is on 5 mg twice daily of Eliquis. Patient has not taken anything for the pain other than trying antacids. Patient rates his current pain 8/10. Patient reports that the blood comes at the end of his vomiting cycle. Patient denies fevers.Patient denies any other associated symptoms at this time. Patient denies any alleviating or exacerbating factors. No additional concern or complaint. Temp 38.6 Tylenol PO/NGT following temp 37.8. sedation Fentanyl 200 mcgs Versed 7 mg, Precedex 1.4 mcgs. pt moving arms. Pt is bleeding from his eyes. Gross periorbital edema. HR 83, SR 129/52, weak pulses, +3+4 generalized edema. IVF infusing via RIJ TLC. ALL ports f/p good blood return. Intubated 8.0 ETT 24 cm. Vent PRVC rate 24, TV 500+/-, FIO2 55%, PEEP 5, suction frequently with gross amount of thick mayer pink tinged secretions. ENCO2 34. Breath sounds, coarse equal symmetrical, non labored. Tolerating vent settings well. Hypoactive bowel sounds, large round abdomen. OGT infusing Vital AF at 75 ml/hr with H2O flushes at 150 mls Q 4 hours. low residual. Protonix for GI Prophylaxis. Insulin gtt titrated in accordance with facility Insulin infusion policies. Bladder non distended, Romero draining paul urine. Bilateral Heels both DTI's, Mepilex to both heels and Prevalon boots in place. Pt remains safe, continue to monitor.
[2021-03-08 03:42] LABS: ALANINE AMINOTRANSFERASE 22 U/L (12-78); ALBUMIN 2.4 G/DL (3.4-5.0); ALBUMIN/GLOBULIN RATIO 0.7 (1.1-1.5); ALKALINE PHOSPHATASE 135 IU/L (46-116); ANION GAP 10 (8-16); ASPARTATE AMINO TRANSFERASE 35 U/L (10-37); BILIRUBIN,TOTAL 1.1 MG/DL (0.1-1.0); BLOOD UREA NITROGEN 57 MG/DL (7-18); BUN/CREATININE RATIO 56.4 (5.4-32.0); CALCIUM 8.8 MG/DL (8.5-10.1); CHLORIDE 112 MMOL/L (99-107); CREATININE 1.01 MG/DL (0.60-1.10); GLUCOSE 152 MG/DL (70-104); MAGNESIUM 2.2 MG/DL (1.5-2.4); POTASSIUM 3.4 MMOL/L (3.5-5.1); SODIUM 151 MMOL/L (135-145); TOTAL PROTEIN 5.7 G/DL (6.4-8.2); eGFR 87 ML/MIN
[2021-03-08] MEDS: dexmedetomidin/NS 400mcg/100ml 100 ML IV PRN ×4 (03:59→22:30)
[2021-03-08 04:17] LABS: NUCLEATED RED BLOOD CELLS 1 /100WBC (0-0); TOTAL CELLS COUNTED 100
[2021-03-08 04:18] LABS: ANISOCYTOSIS 2+; PLATELET ESTIMATE NORMAL; POLYCHROMASIA FEW; TARGET CELLS 1+
[2021-03-08 04:19] LABS: LARGE PLATELETS FEW
[2021-03-08] MEDS ORDERED: potassium Cl 20 mEq/100mL bag IV ONE (04:40)
[2021-03-08] MEDS: Insulin Reg/NS 100units/100mL 100 ML IV SCH ×2 (05:50→18:59)
[2021-03-08] MEDS: docusate sodium 100mg/10ml UD cup NG SCH ×2 (07:57→20:00)
[2021-03-08] MEDS: metroNIDAZOLE 500mg tablet PO SCH ×3 (07:57→21:18)
[2021-03-08] MEDS: thiamine 100mg tablet OGT SCH (07:57)
[2021-03-08] MEDS: folic acid 1mg tablet OGT SCH (07:57)
[2021-03-08] MEDS: lactobacillus rhamnosus 10,000 MMU CELLS/CAPSULE PO SCH ×2 (07:57→21:18)
[2021-03-08] MEDS: metolazone 2.5mg tablet PO SCH (07:57)
[2021-03-08] MEDS: lansoprazole 15mg solutab OGT SCH (07:57)
[2021-03-08] MEDS: apixaban 5mg tablet OGT SCH ×2 (07:58→20:00)
[2021-03-08] MEDS: levoFLOXACIN-Levaquin 750MG/D5 150 ML IV SCH (07:58)
[2021-03-08] MEDS: aztreonam inj. 2,000 MG in normal saline 100ml IV soln 100 ML IV SCH (07:58)
[2021-03-08] MEDS: propranolol 10mg tablet PO SCH ×2 (11:59→21:18)
[2021-03-08] MEDS: polyethylene glycol 3350 17gm powd pack PO SCH ×4 (11:59→17:42)
[2021-03-08] MEDS: bisacodyl 10mg suppository rectal RC SCH (11:59)
[2021-03-08] MEDS: midazolam 100mg in NS 100ml 100 ML IV PRN ×2 (13:16→19:00)
--- NOTE | 2021-03-08 13:30 | NUR ---
PRESSURE ULCER EDUCATION: DEFINITION: A pressure ulcer is an area of skin that breaks down when you stay in one position too long. The constant pressure against the skin reduces the blood flow to that area and the affected tissue dies. CAUSES: "Being bedridden or in a wheelchair "Fragile skin "Having a chronic condition, such as diabetes or vascular disease "Inability to move certain parts of your body without assistance "Older age "Incontinence of urine or stool SYMPTOMS: "A reddened area that DOES NOT turn white when pressed on - this can be the beginning of a pressure ulcer "A blister, deep sore or a crater - these can be advanced pressure ulcers FIRST AID: "Relieve the pressure on this area "Keep the area clean and dry "Call your primary doctor if you see any of the above symptoms "DO NOT massage the area "DO NOT use a donut shaped or ring shaped pillow- these actually interfere with the blood flow and cause complications PREVENTION: "Check for pressure ulcers everyday "Change position at least every two hours to relieve pressure "Use items that help relieve pressure- pillows, sheepskin, foam padding, and powders. "Keep skin clean and dry "Eat healthy well balanced meals "Exercise daily IF YOU SEE ANY OF THESE SYMPTOMS WHILE IN THE HOSPITAL - TELL YOUR NURSE IMMEDIATELY. IF YOU SEE ANY OF THESE SYMPTOMS WHILE AT HOME OR HAVE ANY QUESTIONS OR CONCERNS ABOUT PRESSURE ULCERS - CALL YOUR PRIMARY DOCTOR IMMEDIATELY. Addendum: 03/08/21 at 1330 by Shikha Atwood RN Amended: Links added.
[2021-03-08 15:35] LABS: BASOPHILS % (AUTO) 0.2 % (0-1); EOSINOPHILS % (AUTO) 0 % (0-6); HEMATOCRIT 28.6 % (42.0-52.0); HEMOGLOBIN 9.5 g/dl (14.0-17.9); LYMPHOCYTES # (AUTO) 0.8 X10'3 (1.1-4.8); LYMPHOCYTES % (AUTO) 5.5 % (21-51); MEAN CORPUSCULAR HEMOGLOBIN 35.6 PG (27.0-31.0); MEAN CORPUSCULAR HGB CONC 33.3 g/dL (33.0-36.5); MEAN PLATELET VOLUME 10.7 FL (7.4-10.4); MONOCYTES # (AUTO) 0.5 X10'3 (0-0.9); MONOCYTES % (AUTO) 3.6 % (2-12); NEUTROPHILS # (AUTO) 13.4 X10'3 (1.8-7.7); NEUTROPHILS % (AUTO) 90.7 % (42-75); PLATELET COUNT 228 X10'3 (140-440); RED BLOOD COUNT 2.67 X10'6 (4.70-6.10); RED CELL DISTRIBUTION WIDTH 18.2 % (11.5-14.5); WHITE BLOOD COUNT 14.7 X10'3 (4.5-11.0)
[2021-03-08 15:47] LABS: APTT 28 SECONDS (22-32)
[2021-03-08 15:52] LABS: ALANINE AMINOTRANSFERASE 23 U/L (12-78); ALBUMIN 2.2 G/DL (3.4-5.0); ALBUMIN/GLOBULIN RATIO 0.7 (1.1-1.5); ALKALINE PHOSPHATASE 125 IU/L (46-116); ANION GAP 10 (8-16); ASPARTATE AMINO TRANSFERASE 34 U/L (10-37); BILIRUBIN,TOTAL 0.9 MG/DL (0.1-1.0); BLOOD UREA NITROGEN 48 MG/DL (7-18); BUN/CREATININE RATIO 57.1 (5.4-32.0); CALCIUM 8.3 MG/DL (8.5-10.1); CHLORIDE 113 MMOL/L (99-107); CREATININE 0.84 MG/DL (0.60-1.10); GLUCOSE 116 MG/DL (70-104); SODIUM 152 MMOL/L (135-145); TOTAL CARBON DIOXIDE 29.2 MMOL/L (24-32); TOTAL PROTEIN 5.4 G/DL (6.4-8.2); eGFR > 90 ML/MIN
[2021-03-08 15:54] LABS: POTASSIUM 2.8 MMOL/L (3.5-5.1)
[2021-03-08] MEDS: potassium Cl 20mEq/100mL bag 100 ML IV PRN ×2 (15:59→17:21)
[2021-03-08] MEDS: potassium Cl 20 mEq SR tablet PO PRN (16:00)
[2021-03-08 16:29] LABS: BANDS% (MANUAL) 28 % (0-10); LYMPHOCYTES % (MANUAL) 5 % (21-51); MONOCYTES % (MANUAL) 1 % (2-12); MYELOCYTES % (MANUAL) 1 % (0-0); NEUTROPHILS % (MANUAL) 65 % (42-75); NUCLEATED RED BLOOD CELLS 2 /100WBC (0-0); PLATELET ESTIMATE NORMAL; POLYCHROMASIA FEW; TOTAL CELLS COUNTED 200
[2021-03-08 16:30] LABS: ANISOCYTOSIS 2+; TARGET CELLS 1+
[2021-03-08 16:31] LABS: STOMATOCYTES 2+; TOXIC GRANULATION 1+
[2021-03-08] MEDS: insulin glargine (Lantus) pen - multi-dose SQ SCH (21:20)
[2021-03-08] MEDS: acetaminophen 325mg tablet OGT PRN ×3 (22:25→23:18)
[2021-03-09] VITALS (24 sets, daily range): BP systolic 96–129; BP diastolic 31–84
[2021-03-09] MEDS: FENTANYL-0.9 % NACL/PF 100 ML IV PRN ×3 (00:10→06:56)
[2021-03-09] MEDS: midazolam 100mg in NS 100ml 100 ML IV PRN ×4 (00:10→16:14)
[2021-03-09 04:07] LABS: ABG BASE EXCESS 5.2 mmol/L (-2.0-2.0); ABG HCO3 29.5 mmol/L (22.0-26.0); ABG OXYGEN SATURATION 91.4 % (94-97); ABG PCO2 (T) 42.6 mmHg (35.0-48.0); ABG PO2 (T) 63.8 mmHg (75.0-100.0); ALLEN'S TEST POSITIVE; FCOHb 0.3 % (0.0-3.9); FMetHb 0.2 % (0.0-1.5); FO2Hb 90.9 % (94-97); PATIENT TEMPERATURE 37.3; PEEP 5 cm H2O; RESPIRATORY RATE 24 b/min; TIDAL VOLUME 500 mL; TOTAL HEMOGLOBIN 10.9 G/dl (14.0-18.0)
[2021-03-09] MEDS: dexmedetomidin/NS 400mcg/100ml 100 ML IV PRN ×5 (04:54→23:11)
[2021-03-09 05:56] LABS: ANION GAP 13 (8-16); BLOOD UREA NITROGEN 43 MG/DL (7-18); BUN/CREATININE RATIO 51.2 (5.4-32.0); CALCIUM 8.2 MG/DL (8.5-10.1); CHLORIDE 111 MMOL/L (99-107); CREATININE 0.84 MG/DL (0.60-1.10); GLUCOSE 172 MG/DL (70-104); POTASSIUM 3.3 MMOL/L (3.5-5.1); SODIUM 152 MMOL/L (135-145); TOTAL CARBON DIOXIDE 27.9 MMOL/L (24-32); eGFR > 90 ML/MIN
[2021-03-09] MEDS: levoFLOXACIN-Levaquin 750MG/D5 150 ML IV SCH (07:34)
[2021-03-09] MEDS: docusate sodium 100mg/10ml UD cup NG SCH ×2 (07:36→20:00)
[2021-03-09] MEDS: metroNIDAZOLE 500mg tablet PO SCH ×2 (07:37→13:15)
[2021-03-09] MEDS: polyethylene glycol 3350 17gm powd pack PO SCH (07:37)
[2021-03-09] MEDS: thiamine 100mg tablet OGT SCH (07:37)
[2021-03-09] MEDS: lactobacillus rhamnosus 10,000 MMU CELLS/CAPSULE PO SCH ×2 (07:37→20:20)
[2021-03-09] MEDS: propranolol 10mg tablet PO SCH ×2 (07:37→20:00)
[2021-03-09] MEDS: folic acid 1mg tablet OGT SCH (07:37)
[2021-03-09] MEDS: lansoprazole 15mg solutab OGT SCH (07:37)
[2021-03-09] MEDS ORDERED: fentaNYL/NS/PF 2,500 mcg/250mL 250 ML IV PRN (07:40)
[2021-03-09] MEDS: potassium Cl 20mEq/100mL bag 100 ML IV PRN ×2 (07:48→09:24)
[2021-03-09] MEDS: piperacillin/tazobactam inj. 3.375 GM in NS 50ml IV SCH ×3 (08:00→16:00)
[2021-03-09] MEDS: apixaban 5mg tablet OGT SCH ×2 (09:43→20:20)
--- NOTE | 2021-03-09 10:20 | NUR ---
Pt's mom Bethanie at bedside.
--- NOTE | 2021-03-09 11:13 | NUR ---
F/u 03/09: Pt remains intubated tolerating TF at goal GRV WNL. TF to be held briefly today for CT chest/abdomen/pelvis per campground hand at rounds. Pt remains on insulin drip started 03/07 w/ Glu 501mg/dl at that time now 126-167mg/dl this AM. A1C 5.1% this admit and no hx DM. Serum Na 152 this AM w/ free water increased to 250ml Q4H per night MD in EMR. LBM 03/09 receiving routine bowel care. Will continue to monitor for further nutrition intervention needs. Recs: 1. Continuous TF using Vital AF at 75ml/hr goal to provide 1800ml volume/day, 2160 kcals, 135g protein, and 1458ml water. 2. Additional water flush 250ml Q4H per MD 3. Routine Thiamine and folic acid for EtOH hx 4. Routine bowel care 5. Weekly wts Addendum: 03/09/21 at [address] Amended: Links added.
[2021-03-09] MEDS ORDERED: iohexol 300mg/ml 100ml inj. ONE (11:16)
[2021-03-09] MEDS: acetaminophen 325mg tablet OGT PRN (13:16)
--- NOTE | 2021-03-09 14:32 | NUR ---
TO CT of chest. abd. and pelvis this shift.
[2021-03-09 17:54] LABS: BASOPHILS # (AUTO) 0.1 X10'3 (0-0.2); BASOPHILS % (AUTO) 0.2 % (0-1); EOSINOPHILS # (AUTO) 0.2 X10'3 (0-0.9); EOSINOPHILS % (AUTO) 0.7 % (0-6); HEMATOCRIT 30.9 % (42.0-52.0); HEMOGLOBIN 10.1 g/dl (14.0-17.9); LYMPHOCYTES # (AUTO) 1.3 X10'3 (1.1-4.8); LYMPHOCYTES % (AUTO) 5.7 % (21-51); MEAN CORPUSCULAR HEMOGLOBIN 35.4 PG (27.0-31.0); MEAN CORPUSCULAR HGB CONC 32.6 g/dL (33.0-36.5); MEAN CORPUSCULAR VOLUME 108.4 FL (78-98); MEAN PLATELET VOLUME 10.7 FL (7.4-10.4); MONOCYTES # (AUTO) 0.3 X10'3 (0-0.9); MONOCYTES % (AUTO) 1.5 % (2-12); NEUTROPHILS # (AUTO) 21.1 X10'3 (1.8-7.7); NEUTROPHILS % (AUTO) 91.9 % (42-75); PLATELET COUNT 281 X10'3 (140-440); RED BLOOD COUNT 2.85 X10'6 (4.70-6.10); RED CELL DISTRIBUTION WIDTH 18.7 % (11.5-14.5); WHITE BLOOD COUNT 22.9 X10'3 (4.5-11.0)
--- NOTE | 2021-03-09 18:20 | NUR ---
BC being drawn now. Will hang Vanco when they are done. Report given to LILIANE De La Rosa.
--- NOTE | 2021-03-09 18:20 | NUR ---
Patient in room ICU 2044. I have received report from Lulu OCHOA and had the opportunity to ask questions and assume patient care.
[2021-03-09] MEDS: vancomycin/NS 1 GM ADD-VANTAGE 250 ML X 1 DOSE IV SCH (18:44)
[2021-03-09 19:22] LABS: PLATELET ESTIMATE NORMAL
[2021-03-09 19:23] LABS: ANISOCYTOSIS 2+; LARGE PLATELETS FEW; POLYCHROMASIA FEW; STOMATOCYTES 1+; TARGET CELLS FEW
[2021-03-09] MEDS: insulin glargine (Lantus) pen - multi-dose SQ SCH (20:21)
--- NOTE | 2021-03-09 23:45 | NUR ---
Call to pharmacy to verify the Zosyn order d/t PT having allergy to amoxicillin, Pharmacist stated to get clarification form MD. Call was placed to ICU Tele-Med and stated it would be fine to go ahead and give the Zosyn. Also received order for Lacri-Lube d/t not previously being ordered and PT's eyes being bright red and irritated.
[2021-03-10] VITALS (24 sets, daily range): BP systolic 98–120; BP diastolic 5–70
[2021-03-10] MEDS: piperacillin/tazobactam inj. 3.375 GM in NS 50ml IV SCH ×4 (00:18→23:49)
[2021-03-10] MEDS: acetaminophen 325mg tablet OGT PRN ×2 (00:19→12:28)
[2021-03-10] MEDS: FENTANYL-0.9 % NACL/PF 100 ML IV PRN ×4 (00:22→20:00)
[2021-03-10] MEDS: vancomycin/NS 1 GM ADD-VANTAGE 250 ML X 1 DOSE IV SCH ×3 (01:28→15:46)
[2021-03-10] MEDS: mineral oil/petrolatum ophthal oint EACHEYE SCH ×4 (01:41→20:51)
[2021-03-10] MEDS: midazolam 100mg in NS 100ml 100 ML IV PRN ×3 (01:41→21:34)
[2021-03-10] MEDS: dexmedetomidin/NS 400mcg/100ml 100 ML IV PRN ×6 (03:01→21:37)
[2021-03-10 03:08] LABS: ABG BASE EXCESS 3.1 mmol/L (-2.0-2.0); ABG HCO3 26.8 mmol/L (22.0-26.0); ABG OXYGEN SATURATION 91.8 % (94-97); ABG PCO2 (T) 38.2 mmHg (35.0-48.0); ABG PO2 (T) 65.1 mmHg (75.0-100.0); ALLEN'S TEST Modified; FCOHb 0.3 % (0.0-3.9); FMetHb 0.2 % (0.0-1.5); FO2Hb 91.3 % (94-97); PATIENT TEMPERATURE 37.5; PEEP 5 cm H2O; RESPIRATORY RATE 24 b/min; TIDAL VOLUME 500 mL; TOTAL HEMOGLOBIN 10.9 G/dl (14.0-18.0)
[2021-03-10 03:24] LABS: BASOPHILS % (AUTO) 0.1 % (0-1); EOSINOPHILS # (AUTO) 0.3 X10'3 (0-0.9); EOSINOPHILS % (AUTO) 1.4 % (0-6); HEMATOCRIT 28.8 % (42.0-52.0); HEMOGLOBIN 9.7 g/dl (14.0-17.9); LYMPHOCYTES # (AUTO) 1.1 X10'3 (1.1-4.8); LYMPHOCYTES % (AUTO) 6.1 % (21-51); MEAN CORPUSCULAR HEMOGLOBIN 36.4 PG (27.0-31.0); MEAN CORPUSCULAR HGB CONC 33.6 g/dL (33.0-36.5); MEAN CORPUSCULAR VOLUME 108.1 FL (78-98); MEAN PLATELET VOLUME 11.1 FL (7.4-10.4); MONOCYTES # (AUTO) 0.3 X10'3 (0-0.9); MONOCYTES % (AUTO) 1.5 % (2-12); NEUTROPHILS # (AUTO) 16.1 X10'3 (1.8-7.7); NEUTROPHILS % (AUTO) 90.9 % (42-75); PLATELET COUNT 235 X10'3 (140-440); RED BLOOD COUNT 2.66 X10'6 (4.70-6.10); RED CELL DISTRIBUTION WIDTH 18.7 % (11.5-14.5); WHITE BLOOD COUNT 17.7 X10'3 (4.5-11.0)
[2021-03-10 03:38] LABS: MAGNESIUM 1.9 MG/DL (1.5-2.4); PHOSPHORUS 3.1 MG/DL (2.3-4.5)
[2021-03-10 04:00] LABS: ALANINE AMINOTRANSFERASE 20 U/L (12-78); ALBUMIN 1.9 G/DL (3.4-5.0); ALBUMIN/GLOBULIN RATIO 0.6 (1.1-1.5); ALKALINE PHOSPHATASE 116 IU/L (46-116); ANION GAP 9 (8-16); ASPARTATE AMINO TRANSFERASE 34 U/L (10-37); BILIRUBIN,TOTAL 0.9 MG/DL (0.1-1.0); BLOOD UREA NITROGEN 26 MG/DL (7-18); CALCIUM 7.8 MG/DL (8.5-10.1); CHLORIDE 110 MMOL/L (99-107); CREATININE 0.65 MG/DL (0.60-1.10); GLUCOSE 137 MG/DL (70-104); SODIUM 150 MMOL/L (135-145); TOTAL CARBON DIOXIDE 30.8 MMOL/L (24-32); eGFR > 90 ML/MIN
[2021-03-10 04:01] LABS: POTASSIUM 2.9 MMOL/L (3.5-5.1)
[2021-03-10] MEDS: potassium Cl 20mEq/100mL bag 100 ML IV PRN ×6 (04:09→16:51)
--- NOTE | 2021-03-10 04:34 | NUR ---
ICU Tele-Med MD notified of PT's critical potassium of 2.9 and is in the process of being replaced. Will continue to monitor.
[2021-03-10 04:47] LABS: NUCLEATED RED BLOOD CELLS 1 /100WBC (0-0); TOTAL CELLS COUNTED 100
[2021-03-10 04:48] LABS: ANISOCYTOSIS 2+; PLATELET ESTIMATE NORMAL
[2021-03-10 04:49] LABS: LARGE PLATELETS FEW
[2021-03-10 04:50] LABS: STOMATOCYTES 2+; TARGET CELLS FEW; TOXIC GRANULATION 1+
--- NOTE | 2021-03-10 06:26 | NUR ---
Problems reprioritized. Patient report given, questions answered & plan of care reviewed with Candie OCHOA.
[2021-03-10] MEDS: Insulin Reg/NS 100units/100mL 100 ML IV SCH (07:01)
[2021-03-10] MEDS: docusate sodium 100mg/10ml UD cup NG SCH ×2 (07:27→20:50)
[2021-03-10] MEDS: apixaban 5mg tablet OGT SCH ×2 (07:36→20:51)
[2021-03-10] MEDS: propranolol 10mg tablet PO SCH ×2 (07:36→20:51)
[2021-03-10] MEDS: lactobacillus rhamnosus 10,000 MMU CELLS/CAPSULE PO SCH ×2 (07:36→20:51)
[2021-03-10] MEDS: folic acid 1mg tablet OGT SCH (07:36)
[2021-03-10] MEDS: lansoprazole 15mg solutab OGT SCH (07:36)
[2021-03-10] MEDS: thiamine 100mg tablet OGT SCH (07:37)
[2021-03-10] MEDS: polyethylene glycol 3350 17gm powd pack PO SCH (07:37)
[2021-03-10 12:00] LABS: PREALBUMIN 14.9 MG/DL (19-36)
[2021-03-10] MEDS: QUEtiapine 25mg tablet OGT SCH ×2 (12:28→20:51)
--- NOTE | 2021-03-10 14:23 | NUR ---
TPN Consult: Pt remains intubated tolerating TF at goal GRV WNL now s/p rectal tube placement -600ml per EMR. Pt pancreatitis worsening and to be made NPO pending PICC placement w/ TPN to start today per classroom paraprofessional. Noted pt 21.5kg wt gain this admit w/ 1L positive fluid balance likely bed scaled errors. Pt visibly appears more likely to weigh 87.3kg which is second scaled wt than 77kg initial scaled wt making true BMI likely 28.4. TPN recs below using IBW given wt fluctuations; will monitor for PN tolerance and adjustment needs on vent. IF pancreatitis improves may benefit from post-pyloric EN in proximal duodenum via corpak per physician discretion. Recs: 1. Continuous TPN per MD via PICC using 2:1 Clinimix E 5/20 at 100ml/hr goal w/ separate 100ml 20% intralipids to run for 12 hours each day at 8.33ml/hr. In total; to provide 2400ml volume/day, 120g AA, 480g DEX(3.06 mg/kg/min), and 2312 kcals/day. Initiate at 30ml/hr and if tolerated advance Q12H to goal. 2. IF EN to restart; Consider post-pyloric feeds in proximal duodenum via corpak using continuous Vital AF at 80ml/hr goal to provide 1920ml volume/day, 2304 kcals, 144g protein, and 1555ml water. 3. TG/PALB Q /; daily wts 4. Routine Thiamine and folic acid for EtOH hx 5. Routine bowel care 6. Monitor for PN tolerance Addendum: 03/10/21 at [address] Amended: Links added.
[2021-03-10] MEDS ORDERED: Dextrose 10%-water IV solution 1,000 ML IV PRN (14:45)
[2021-03-10] MEDS ORDERED: VANCOMYCIN LEVEL IV ONE (15:30)
--- NOTE | 2021-03-10 18:28 | NUR ---
Problems reprioritized. Patient report given, questions answered & plan of care reviewed with Basia OCHOA.
[2021-03-10] MEDS ORDERED: ZINC/COPPER/MANGANESE/SELENIUM 0.5 ML, chromic chloride inj. 5 MCG in AA 5%/CALCIUM/LYT... IV SCH (19:00)
[2021-03-10] MEDS: fat emulsion 20% inj. 100 ML IV SCH (20:54)
[2021-03-10] MEDS: insulin glargine (Lantus) pen - multi-dose SQ SCH (20:55)
[2021-03-11] VITALS (23 sets, daily range): BP systolic 98–130; BP diastolic 49–73
[2021-03-11] MEDS: VANCOmycin 1250MG/NS 250ml Bag 250 ML IV SCH ×3 (00:48→15:25)
[2021-03-11] MEDS: dexmedetomidin/NS 400mcg/100ml 100 ML IV PRN ×6 (01:02→20:23)
[2021-03-11] MEDS: FENTANYL-0.9 % NACL/PF 100 ML IV PRN ×4 (02:26→22:47)
[2021-03-11] MEDS: mineral oil/petrolatum ophthal oint EACHEYE SCH ×4 (02:27→20:05)
[2021-03-11 03:04] LABS: BASOPHILS % (AUTO) 0 % (0-1); EOSINOPHILS # (AUTO) 0.4 X10'3 (0-0.9); EOSINOPHILS % (AUTO) 2.8 % (0-6); HEMATOCRIT 28.5 % (42.0-52.0); HEMOGLOBIN 9.5 g/dl (14.0-17.9); LYMPHOCYTES # (AUTO) 1.2 X10'3 (1.1-4.8); MEAN CORPUSCULAR HEMOGLOBIN 35.5 PG (27.0-31.0); MEAN CORPUSCULAR HGB CONC 33.2 g/dL (33.0-36.5); MEAN PLATELET VOLUME 11.3 FL (7.4-10.4); MONOCYTES # (AUTO) 0.4 X10'3 (0-0.9); MONOCYTES % (AUTO) 2.4 % (2-12); NEUTROPHILS # (AUTO) 13.2 X10'3 (1.8-7.7); NEUTROPHILS % (AUTO) 86.8 % (42-75); PLATELET COUNT 277 X10'3 (140-440); RED BLOOD COUNT 2.66 X10'6 (4.70-6.10); RED CELL DISTRIBUTION WIDTH 18.8 % (11.5-14.5); WHITE BLOOD COUNT 15.2 X10'3 (4.5-11.0)
[2021-03-11 03:13] LABS: ALANINE AMINOTRANSFERASE 12 U/L (12-78); ALBUMIN 1.7 G/DL (3.4-5.0); ALBUMIN/GLOBULIN RATIO 0.5 (1.1-1.5); ALKALINE PHOSPHATASE 112 IU/L (46-116); ANION GAP 5 (8-16); ASPARTATE AMINO TRANSFERASE 26 U/L (10-37); BILIRUBIN,TOTAL 0.9 MG/DL (0.1-1.0); BLOOD UREA NITROGEN 15 MG/DL (7-18); BUN/CREATININE RATIO 25.4 (5.4-32.0); CHLORIDE 106 MMOL/L (99-107); CREATININE 0.59 MG/DL (0.60-1.10); GLUCOSE 148 MG/DL (70-104); MAGNESIUM 1.8 MG/DL (1.5-2.4); PHOSPHORUS 3.1 MG/DL (2.3-4.5); POTASSIUM 3.8 MMOL/L (3.5-5.1); SODIUM 142 MMOL/L (135-145); TRIGLYCERIDES 266 MG/DL (20-135); eGFR > 90 ML/MIN
[2021-03-11 03:37] LABS: ABG BASE EXCESS 5.7 mmol/L (-2.0-2.0); ABG HCO3 28.6 mmol/L (22.0-26.0); ABG OXYGEN SATURATION 92.8 % (94-97); ABG PCO2 (T) 37.2 mmHg (35.0-48.0); ABG PO2 (T) 66.6 mmHg (75.0-100.0); ALLEN'S TEST Modified; FCOHb 0.3 % (0.0-3.9); FMetHb 0.3 % (0.0-1.5); FO2Hb 92.2 % (94-97); PATIENT TEMPERATURE 38.2; PEEP 5 cm H2O; RESPIRATORY RATE 24 b/min; TIDAL VOLUME 500 mL; TOTAL HEMOGLOBIN 10.5 G/dl (14.0-18.0)
[2021-03-11 03:58] LABS: ANISOCYTOSIS 2+; PLATELET ESTIMATE NORMAL
[2021-03-11 04:00] LABS: LARGE PLATELETS FEW; STOMATOCYTES 1+; TARGET CELLS FEW; TEAR DROP CELLS FEW
--- NOTE | 2021-03-11 06:30 | NUR ---
Patient in room ICU 2044. I have received report from and had the opportunity to ask questions and assume patient care.
[2021-03-11] MEDS: docusate sodium 100mg/10ml UD cup NG SCH ×2 (06:48→20:00)
[2021-03-11] MEDS: polyethylene glycol 3350 17gm powd pack PO SCH (06:54)
[2021-03-11] MEDS: piperacillin/tazobactam inj. 3.375 GM in NS 50ml IV SCH ×2 (09:11→15:22)
[2021-03-11] MEDS: lansoprazole 15mg solutab OGT SCH (09:30)
[2021-03-11] MEDS: thiamine 100mg tablet OGT SCH (09:31)
[2021-03-11] MEDS: propranolol 10mg tablet PO SCH ×2 (09:31→20:00)
[2021-03-11] MEDS: QUEtiapine 25mg tablet OGT SCH ×3 (09:31→20:06)
[2021-03-11] MEDS: folic acid 1mg tablet OGT SCH (09:31)
[2021-03-11] MEDS: lactobacillus rhamnosus 10,000 MMU CELLS/CAPSULE PO SCH (09:31)
[2021-03-11] MEDS: apixaban 5mg tablet OGT SCH ×2 (10:20→20:06)
[2021-03-11] MEDS: bisacodyl 10mg suppository rectal RC SCH (11:23)
--- NOTE | 2021-03-11 12:00 | NUR ---
update to dr oglesby- fio2 to 6o%- will attempt to decrease. versed being decreased to off. continue mod katina shah- aware- ok for eliquis. tpn to goal.
[2021-03-11] MEDS: midazolam 100mg in NS 100ml 100 ML IV PRN (12:52)
--- NOTE | 2021-03-11 16:00 | NUR ---
opens eyes to care- followed commands for md. fio2 to 45%. versed off
[2021-03-11] MEDS: ZINC/COPPER/MANGANESE/SELENIUM 0.5 ML, chromic chloride inj. 5 MCG in AA 5%/CALCIUM/LYT... IV SCH (16:14)
--- NOTE | 2021-03-11 18:30 | NUR ---
Patient in room ICU 2044. I have received report from Cyndi OCHOA and had the opportunity to ask questions and assume patient care.
[2021-03-11] MEDS: Insulin Reg/NS 100units/100mL 100 ML IV SCH (19:36)
[2021-03-11] MEDS: fat emulsion 20% inj. 100 ML IV SCH (20:06)
[2021-03-11] MEDS: insulin glargine (Lantus) pen - multi-dose SQ SCH (20:07)
[2021-03-11] MEDS ORDERED: VANCOMYCIN LEVEL IV ONE (23:30)
[2021-03-12] VITALS (24 sets, daily range): BP systolic 98–143; BP diastolic 46–88
[2021-03-12] MEDS: dexmedetomidin/NS 400mcg/100ml 100 ML IV PRN ×6 (00:14→22:15)
[2021-03-12] MEDS: piperacillin/tazobactam inj. 3.375 GM in NS 50ml IV SCH ×3 (00:16→16:35)
[2021-03-12 00:23] LABS: VANCOMYCIN,TROUGH 9.4 UG/ML (6.0-14.0)
[2021-03-12] MEDS: VANCOmycin 1250MG/NS 250ml Bag 250 ML IV SCH (00:37)
[2021-03-12] MEDS: mineral oil/petrolatum ophthal oint EACHEYE SCH ×3 (02:08→14:00)
[2021-03-12] MEDS: ZINC/COPPER/MANGANESE/SELENIUM 0.5 ML, chromic chloride inj. 5 MCG in AA 5%/CALCIUM/LYT... IV SCH ×3 (02:32→22:30)
[2021-03-12 02:38] LABS: BASOPHILS % (AUTO) 0.1 % (0-1); EOSINOPHILS # (AUTO) 0.5 X10'3 (0-0.9); EOSINOPHILS % (AUTO) 3.6 % (0-6); HEMATOCRIT 28.8 % (42.0-52.0); HEMOGLOBIN 9.5 g/dl (14.0-17.9); LYMPHOCYTES # (AUTO) 1.1 X10'3 (1.1-4.8); LYMPHOCYTES % (AUTO) 8.1 % (21-51); MEAN CORPUSCULAR HEMOGLOBIN 35.2 PG (27.0-31.0); MEAN CORPUSCULAR HGB CONC 33.1 g/dL (33.0-36.5); MEAN CORPUSCULAR VOLUME 106.5 FL (78-98); MEAN PLATELET VOLUME 10.6 FL (7.4-10.4); MONOCYTES # (AUTO) 0.6 X10'3 (0-0.9); MONOCYTES % (AUTO) 4.1 % (2-12); NEUTROPHILS # (AUTO) 11.7 X10'3 (1.8-7.7); NEUTROPHILS % (AUTO) 84.1 % (42-75); PLATELET COUNT 360 X10'3 (140-440); RED CELL DISTRIBUTION WIDTH 18.1 % (11.5-14.5)
[2021-03-12 02:44] LABS: ABG BASE EXCESS 5.8 mmol/L (-2.0-2.0); ABG HCO3 29.1 mmol/L (22.0-26.0); ABG OXYGEN SATURATION 95.4 % (94-97); ABG PCO2 (T) 39.8 mmHg (35.0-48.0); ABG PO2 (T) 83.8 mmHg (75.0-100.0); ALLEN'S TEST POSITIVE; FCOHb 0.3 % (0.0-3.9); FMetHb 0.3 % (0.0-1.5); FO2Hb 94.8 % (94-97); PATIENT TEMPERATURE 38.2; PEEP 5 cm H2O; RESPIRATORY RATE 24 b/min; TIDAL VOLUME 500 mL
[2021-03-12 03:03] LABS: ALANINE AMINOTRANSFERASE 13 U/L (12-78); ALBUMIN 1.7 G/DL (3.4-5.0); ALBUMIN/GLOBULIN RATIO 0.5 (1.1-1.5); ALKALINE PHOSPHATASE 103 IU/L (46-116); ANION GAP 5 (8-16); ASPARTATE AMINO TRANSFERASE 23 U/L (10-37); BILIRUBIN,TOTAL 0.8 MG/DL (0.1-1.0); BLOOD UREA NITROGEN 10 MG/DL (7-18); BUN/CREATININE RATIO 18.9 (5.4-32.0); CALCIUM 8.4 MG/DL (8.5-10.1); CHLORIDE 102 MMOL/L (99-107); CREATININE 0.53 MG/DL (0.60-1.10); GLUCOSE 140 MG/DL (70-104); MAGNESIUM 1.4 MG/DL (1.5-2.4); PHOSPHORUS 3.4 MG/DL (2.3-4.5); POTASSIUM 3.8 MMOL/L (3.5-5.1); SODIUM 139 MMOL/L (135-145); TOTAL CARBON DIOXIDE 32.4 MMOL/L (24-32); TOTAL PROTEIN 5.4 G/DL (6.4-8.2); TRIGLYCERIDES 246 MG/DL (20-135); eGFR > 90 ML/MIN
[2021-03-12 03:15] LABS: ANISOCYTOSIS 2+; PLATELET ESTIMATE NORMAL; POLYCHROMASIA FEW
[2021-03-12 03:16] LABS: STOMATOCYTES 1+; TARGET CELLS FEW
[2021-03-12 03:17] LABS: LARGE PLATELETS FEW
[2021-03-12] MEDS: FENTANYL-0.9 % NACL/PF 100 ML IV PRN (04:10)
[2021-03-12] MEDS: acetaminophen 325mg tablet OGT PRN (05:34)
--- NOTE | 2021-03-12 06:28 | NUR ---
Problems reprioritized. Patient report given, questions answered & plan of care reviewed with Cyndi OCHOA.
--- NOTE | 2021-03-12 06:30 | NUR ---
Patient in room ICU 2044. I have received report from and had the opportunity to ask questions and assume patient care.
[2021-03-12] MEDS: polyethylene glycol 3350 17gm powd pack PO SCH (08:00)
[2021-03-12] MEDS ORDERED: thiamine inj. 100 MG in normal saline 100ml IV soln 100 ML IV SCH (08:00)
[2021-03-12] MEDS: docusate sodium 100mg/10ml UD cup NG SCH ×2 (08:00→18:57)
[2021-03-12] MEDS: pantoprazole 40MG/NS 100ML BAG 100 ML IV SCH (08:33)
[2021-03-12] MEDS: folic acid 1mg/0.2ml inj IV SCH (08:34)
[2021-03-12] MEDS: apixaban 5mg tablet OGT SCH ×2 (08:35→20:00)
[2021-03-12] MEDS: QUEtiapine 25mg tablet OGT SCH ×3 (08:35→21:00)
[2021-03-12] MEDS: propranolol 10mg tablet PO SCH ×2 (08:35→20:00)
[2021-03-12] MEDS: thiamine 100mg/ml 2ml inj. IV SCH (08:39)
[2021-03-12] MEDS: Insulin Reg/NS 100units/100mL 100 ML IV SCH (08:54)
--- NOTE | 2021-03-12 12:45 | NUR ---
PT PASSED WEANING PARAMETERS- OB SPONT SINCE AM- EXT TO 6LNC. CONGESTED- CONTINUED BLDY SX STRONG COUGH. FAMILY NOTIFIED. MOM IN THIS AM.
--- NOTE | 2021-03-12 14:32 | NUR ---
Reassessment: Pt s/p extubation today tolerating TPN at goal to remain NPO w/ PN per MD. Rectal tube -200ml output w/ colace held per EMR. Mg 1.4 receiving replacement per RN. Will continue to monitor for nutrition support tolerance and adjustment needs. Recs: 1. Continuous TPN per MD via PICC using 2:1 Clinimix E 5/20 at 100ml/hr goal w/ separate 100ml 20% intralipids to run for 12 hours each day at 8.33ml/hr. In total; to provide 2400ml volume/day, 120g AA, 480g DEX(3.06 mg/kg/min), and 2312 kcals/day. Initiate at 30ml/hr and if tolerated advance Q12H to goal. 2. advance diet as medically indicated to heart healthy per WELDING INSPECTOR/MD recs 3. TG/PALB Q /; daily wts 4. Routine Thiamine and folic acid for EtOH hx 5. Routine bowel care Addendum: 03/12/21 at [address] Amended: Links added. Addendum: 03/12/21 at [address] Jaja Consult: Pt s/p extubation today tolerating TPN at goal to remain NPO w/ PN per MD. Rectal tube -200ml output w/ colace held per EMR. Mg 1.4 receiving replacement per RN. Moy 11 w/ R heel DTI and blister otherwise skin intact per [facility] note. Will continue to monitor for nutrition support tolerance and adjustment needs. Recs: 1. Continuous TPN per MD via PICC using 2:1 Clinimix E 5/20 at 100ml/hr goal w/ separate 100ml 20% intralipids to run for 12 hours each day at 8.33ml/hr. In total; to provide 2400ml volume/day, 120g AA, 480g DEX(3.06 mg/kg/min), and 2312 kcals/day. Initiate at 30ml/hr and if tolerated advance Q12H to goal. 2. advance diet as medically indicated to heart healthy per WELDING INSPECTOR/MD recs 3. TG/PALB Q /; daily wts 4. Routine Thiamine and folic acid for EtOH hx 5. Routine bowel care
[2021-03-12] MEDS: MVI, adult No.4 with vit. K 10 ML in dextrose 5% water 500ml 500 ML IV SCH ×2 (16:41)
--- NOTE | 2021-03-12 17:00 | NUR ---
LESS CONGESTED. O2NC DOWN TO 4L- SATS WNL. VERY RESTLESS- GRABS AT THINGS- REORIENTED, WHISPERS, NODS. RMAINS ON TPN, INSULIN AND PRECEDEX PER MD REQUEST.
[2021-03-12] MEDS ORDERED: lactobacillus rhamnosus 10,000 MMU CELLS/CAPSULE PO SCH (20:00)
[2021-03-12] MEDS: fat emulsion 20% inj. 100 ML IV SCH (20:00)
[2021-03-12] MEDS: insulin glargine (Lantus) pen - multi-dose SQ SCH (21:00)
[2021-03-13] VITALS (23 sets, daily range): BP systolic 114–153; BP diastolic 57–87
[2021-03-13] MEDS: Insulin Reg/NS 100units/100mL 100 ML IV SCH ×2 (00:09→09:00)
[2021-03-13] MEDS: piperacillin/tazobactam inj. 3.375 GM in NS 50ml IV SCH ×3 (00:34→16:00)
[2021-03-13 03:19] LABS: ABG BASE EXCESS 4.5 mmol/L (-2.0-2.0); ABG HCO3 30.9 mmol/L (22.0-26.0); ABG OXYGEN SATURATION 93.3 % (94-97); ABG PCO2 (T) 53.1 mmHg (35.0-48.0); ABG PO2 (T) 68.5 mmHg (75.0-100.0); ALLEN'S TEST POSITIVE; FCOHb 0.2 % (0.0-3.9); FLOW 6 L/min; FMetHb 0.2 % (0.0-1.5); FO2Hb 92.9 % (94-97); PATIENT TEMPERATURE 36.2; TOTAL HEMOGLOBIN 11.2 G/dl (14.0-18.0)
[2021-03-13 03:37] LABS: BASOPHILS # (AUTO) 0.1 X10'3 (0-0.2); BASOPHILS % (AUTO) 0.3 % (0-1); EOSINOPHILS # (AUTO) 0.3 X10'3 (0-0.9); EOSINOPHILS % (AUTO) 1.2 % (0-6); HEMATOCRIT 31.8 % (42.0-52.0); HEMOGLOBIN 10.3 g/dl (14.0-17.9); LYMPHOCYTES # (AUTO) 1.2 X10'3 (1.1-4.8); LYMPHOCYTES % (AUTO) 5.5 % (21-51); MEAN CORPUSCULAR HEMOGLOBIN 34.8 PG (27.0-31.0); MEAN CORPUSCULAR HGB CONC 32.4 g/dL (33.0-36.5); MEAN CORPUSCULAR VOLUME 107.4 FL (78-98); MEAN PLATELET VOLUME 10.2 FL (7.4-10.4); MONOCYTES % (AUTO) 4.7 % (2-12); NEUTROPHILS # (AUTO) 19.5 X10'3 (1.8-7.7); NEUTROPHILS % (AUTO) 88.3 % (42-75); PLATELET COUNT 588 X10'3 (140-440); RED BLOOD COUNT 2.96 X10'6 (4.70-6.10); RED CELL DISTRIBUTION WIDTH 17.9 % (11.5-14.5); WHITE BLOOD COUNT 22.1 X10'3 (4.5-11.0)
[2021-03-13 04:10] LABS: ALANINE AMINOTRANSFERASE 18 U/L (12-78); ALBUMIN 2.2 G/DL (3.4-5.0); ALBUMIN/GLOBULIN RATIO 0.5 (1.1-1.5); ALKALINE PHOSPHATASE 128 IU/L (46-116); ANION GAP 8 (8-16); ASPARTATE AMINO TRANSFERASE 24 U/L (10-37); BILIRUBIN,TOTAL 0.8 MG/DL (0.1-1.0); BLOOD UREA NITROGEN 10 MG/DL (7-18); BUN/CREATININE RATIO 22.2 (5.4-32.0); CALCIUM 8.7 MG/DL (8.5-10.1); CHLORIDE 100 MMOL/L (99-107); CREATININE 0.45 MG/DL (0.60-1.10); GLUCOSE 206 MG/DL (70-104); PHOSPHORUS 3.9 MG/DL (2.3-4.5); POTASSIUM 3.6 MMOL/L (3.5-5.1); SODIUM 139 MMOL/L (135-145); TOTAL CARBON DIOXIDE 30.9 MMOL/L (24-32); TOTAL PROTEIN 6.6 G/DL (6.4-8.2); eGFR > 90 ML/MIN
[2021-03-13 04:59] LABS: ANISOCYTOSIS 1+; PLATELET ESTIMATE INCREASED; TOTAL CELLS COUNTED 100
[2021-03-13 05:00] LABS: LARGE PLATELETS FEW; POLYCHROMASIA FEW; STOMATOCYTES 1+
--- NOTE | 2021-03-13 06:30 | NUR ---
Patient in room ICU 2044. I have received report from and had the opportunity to ask questions and assume patient care.
--- NOTE | 2021-03-13 07:00 | NUR ---
pt 's body half on side rail - rr to 50's, sats 79%. repositioned in bed, hob up, encouraged cough- prod suction- red sx- sats to 94%. rr rate to 40's, but inc wob- bipap started- rr to 39.
[2021-03-13] MEDS ORDERED: VANCOMYCIN LEVEL IV ONE (07:30)
[2021-03-13] MEDS: docusate sodium 100mg/10ml UD cup NG SCH ×2 (08:00→20:00)
[2021-03-13] MEDS: polyethylene glycol 3350 17gm powd pack PO SCH (08:00)
[2021-03-13] MEDS: pantoprazole 40MG/NS 100ML BAG 100 ML IV SCH (09:09)
[2021-03-13] MEDS: folic acid 1mg/0.2ml inj IV SCH (09:10)
[2021-03-13] MEDS: dexmedetomidin/NS 400mcg/100ml 100 ML IV PRN ×3 (09:10→21:13)
[2021-03-13] MEDS: thiamine 100mg/ml 2ml inj. IV SCH (09:11)
[2021-03-13] MEDS: LORazepam 2 mg/ml vial IV PRN (09:31)
[2021-03-13] MEDS: ZINC/COPPER/MANGANESE/SELENIUM 0.5 ML, chromic chloride inj. 5 MCG in AA 5%/CALCIUM/LYT... IV SCH ×2 (09:57→17:45)
[2021-03-13 11:16] LABS: MAGNESIUM 1.5 MG/DL (1.5-2.4)
[2021-03-13 12:26] LABS: ABG BASE EXCESS 7.5 mmol/L (-2.0-2.0); ABG HCO3 31.6 mmol/L (22.0-26.0); ABG PCO2 (T) 44.2 mmHg (35.0-48.0); ABG PO2 (T) 78.1 mmHg (75.0-100.0); ALLEN'S TEST POSITIVE; FCOHb 0.3 % (0.0-3.9); FMetHb 0.1 % (0.0-1.5); FO2Hb 94.6 % (94-97); TOTAL HEMOGLOBIN 10.6 G/dl (14.0-18.0)
--- NOTE | 2021-03-13 12:56 | NUR ---
abgs per request of md. wnl- md aware- pt opens eyes and nods to reintubating him if needed. mom at bs and aware
[2021-03-13] MEDS: QUEtiapine 25mg tablet OGT SCH ×3 (13:00→21:12)
[2021-03-13] MEDS: apixaban 5mg tablet OGT SCH ×2 (15:45→21:12)
[2021-03-13] MEDS: propranolol 10mg tablet PO SCH ×2 (15:49→21:12)
--- NOTE | 2021-03-13 16:00 | NUR ---
pt awake, nods, removed bipap and placed on nc 6lnc- sats wnl- rr 20' to 30's. oral care, ice chips taken well. meds taken with water- swallowed well. whispers, but appropriate
[2021-03-13] MEDS ORDERED: lactobacillus rhamnosus 10,000 MMU CELLS/CAPSULE OGT SCH (20:00)
[2021-03-13] MEDS: insulin glargine (Lantus) pen - multi-dose SQ SCH (21:00)
[2021-03-13] MEDS: fat emulsion 20% inj. 100 ML IV SCH (21:28)
[2021-03-13] MEDS: HYDROcodone/acetaminophen 10/325mg tab PO PRN (23:36)
[2021-03-14] VITALS (24 sets, daily range): BP systolic 109–151; BP diastolic 41–97
[2021-03-14] MEDS: piperacillin/tazobactam inj. 3.375 GM in NS 50ml IV SCH ×3 (00:09→16:51)
[2021-03-14] MEDS: dexmedetomidin/NS 400mcg/100ml 100 ML IV PRN ×5 (00:24→16:51)
[2021-03-14] MEDS: ZINC/COPPER/MANGANESE/SELENIUM 0.5 ML, chromic chloride inj. 5 MCG in AA 5%/CALCIUM/LYT... IV SCH ×2 (05:15→15:30)
[2021-03-14] MEDS: LORazepam 2 mg/ml vial IV PRN ×2 (05:34→11:37)
--- NOTE | 2021-03-14 05:50 | NUR ---
patient calm most of the night , follow commands , around 5 am starting to have hallucination , trying to get up , agitated , claimed somebody watching me .. put back BIPAP
[2021-03-14 07:06] LABS: BASOPHILS # (AUTO) 0.1 X10'3 (0-0.2); BASOPHILS % (AUTO) 0.6 % (0-1); EOSINOPHILS # (AUTO) 0.4 X10'3 (0-0.9); EOSINOPHILS % (AUTO) 2.6 % (0-6); HEMOGLOBIN 9.6 g/dl (14.0-17.9); MEAN PLATELET VOLUME 9.4 FL (7.4-10.4)
[2021-03-14 07:08] LABS: HEMATOCRIT 28.5 % (42.0-52.0); LYMPHOCYTES % (AUTO) 14.1 % (21-51); MEAN CORPUSCULAR HEMOGLOBIN 35.6 PG (27.0-31.0); MEAN CORPUSCULAR HGB CONC 33.7 g/dL (33.0-36.5); MEAN CORPUSCULAR VOLUME 105.5 FL (78-98); MONOCYTES # (AUTO) 1.4 X10'3 (0-0.9); MONOCYTES % (AUTO) 10.1 % (2-12); NEUTROPHILS # (AUTO) 10.4 X10'3 (1.8-7.7); NEUTROPHILS % (AUTO) 72.6 % (42-75); PLATELET COUNT 652 X10'3 (140-440); RED CELL DISTRIBUTION WIDTH 18.4 % (11.5-14.5); WHITE BLOOD COUNT 14.3 X10'3 (4.5-11.0)
[2021-03-14] MEDS: polyethylene glycol 3350 17gm powd pack PO SCH (07:22)
[2021-03-14] MEDS: propranolol 10mg tablet PO SCH ×2 (07:23→20:42)
[2021-03-14] MEDS: apixaban 5mg tablet OGT SCH ×2 (07:23→20:42)
[2021-03-14] MEDS: thiamine 100mg/ml 2ml inj. IV SCH (07:24)
[2021-03-14] MEDS: folic acid 1mg/0.2ml inj IV SCH (07:24)
[2021-03-14] MEDS: docusate sodium 100mg/10ml UD cup NG SCH ×2 (07:24→20:42)
[2021-03-14] MEDS: pantoprazole 40MG/NS 100ML BAG 100 ML IV SCH (07:25)
[2021-03-14] MEDS: QUEtiapine 25mg tablet OGT SCH ×3 (07:28→20:42)
[2021-03-14 07:31] LABS: ALANINE AMINOTRANSFERASE 23 U/L (12-78); ALBUMIN 2.2 G/DL (3.4-5.0); ALBUMIN/GLOBULIN RATIO 0.5 (1.1-1.5); ALKALINE PHOSPHATASE 153 IU/L (46-116); ANION GAP 9 (8-16); ASPARTATE AMINO TRANSFERASE 38 U/L (10-37); BILIRUBIN,TOTAL 0.7 MG/DL (0.1-1.0); BLOOD UREA NITROGEN 8 MG/DL (7-18); CALCIUM 8.7 MG/DL (8.5-10.1); CHLORIDE 105 MMOL/L (99-107); GLUCOSE 161 MG/DL (70-104); PHOSPHORUS 3.4 MG/DL (2.3-4.5); POTASSIUM 3.2 MMOL/L (3.5-5.1); SODIUM 143 MMOL/L (135-145); TOTAL CARBON DIOXIDE 28.8 MMOL/L (24-32); TOTAL PROTEIN 6.5 G/DL (6.4-8.2); eGFR > 90 ML/MIN
--- NOTE | 2021-03-14 07:50 | NUR ---
Patient was becoming diaphoretic and tachypneic, patient unable to speak in full sentences, currently on 4L NC. Patient was placed back on bipap and began to look much more comfortable and relaxed. When asked if he felt better like this he stated yes and closed his eyes to rest. Will continue to monitor.
--- NOTE | 2021-03-14 10:00 | NUR ---
Dr. Barton asked that patient be placed on nasal cannula again, since patient doesn't seem to need the bipap anymore.
[2021-03-14 10:04] LABS: MAGNESIUM 1.7 MG/DL (1.5-2.4)
[2021-03-14] MEDS: bisacodyl 10mg suppository rectal RC SCH (11:17)
[2021-03-14] MEDS: potassium Cl 20mEq/100mL bag 100 ML IV PRN ×2 (11:43→13:10)
[2021-03-14] MEDS: Insulin Reg/NS 100units/100mL 100 ML IV SCH (15:10)
--- NOTE | 2021-03-14 17:00 | NUR ---
Spoke with patient's mother and gave her an update of patient's day and condition. She stated that she should be back in tomorrow (03/15).
--- NOTE | 2021-03-14 18:19 | NUR ---
Patient in room ICU 2044. I have received report from GABRIELA Valentine and had the opportunity to ask questions and assume patient care.
--- NOTE | 2021-03-14 19:00 | NUR ---
Patient supine in bed. Oral care encouraged and assisted with. Assisted patient with oral suction. Patient with thick secretions. Patient able to brush his teeth with some assistance. Face washed. Patient repositioned, at this time patient refusing to be turned but will allow nursing staff to pull him up in bed.
[2021-03-14] MEDS: fat emulsion 20% inj. 100 ML IV SCH (20:42)
[2021-03-14] MEDS: insulin glargine (Lantus) pen - multi-dose SQ SCH (22:59)
--- NOTE | 2021-03-14 23:00 | NUR ---
Patient allowing repositioning. During bed bath patient with open wound to coccyx, surrounding skin is blanchable. New foam dressing in place, unable to take photo of wound for chart, secondary to camera not being available. Patient allowed NT suctioning to be done with moderate amount of thick white/yellow/bloody secretions to be suctioned, patient with improved airway sounds after.
[2021-03-15] VITALS (24 sets, daily range): BP systolic 100–148; BP diastolic 51–79
[2021-03-15] MEDS: piperacillin/tazobactam inj. 3.375 GM in NS 50ml IV SCH ×4 (00:25→23:44)
[2021-03-15] MEDS: ZINC/COPPER/MANGANESE/SELENIUM 0.5 ML, chromic chloride inj. 5 MCG in AA 5%/CALCIUM/LYT... IV SCH ×3 (00:26→20:01)
[2021-03-15] MEDS: dexmedetomidin/NS 400mcg/100ml 100 ML IV PRN ×5 (00:27→20:53)
[2021-03-15] MEDS: insulin regular, human U-100 3ml vial - multi-dose SQ SCH ×4 (02:40→20:05)
[2021-03-15 03:20] LABS: BASOPHILS # (AUTO) 0.1 X10'3 (0-0.2); EOSINOPHILS # (AUTO) 0.4 X10'3 (0-0.9); HEMOGLOBIN 8.9 g/dl (14.0-17.9); MEAN PLATELET VOLUME 9.3 FL (7.4-10.4)
[2021-03-15 03:21] LABS: BASOPHILS % (AUTO) 0.7 % (0-1); EOSINOPHILS % (AUTO) 3.2 % (0-6); HEMATOCRIT 27.4 % (42.0-52.0); LYMPHOCYTES # (AUTO) 1.6 X10'3 (1.1-4.8); LYMPHOCYTES % (AUTO) 11.9 % (21-51); MEAN CORPUSCULAR HEMOGLOBIN 35.1 PG (27.0-31.0); MEAN CORPUSCULAR HGB CONC 32.7 g/dL (33.0-36.5); MEAN CORPUSCULAR VOLUME 107.4 FL (78-98); MONOCYTES # (AUTO) 1.5 X10'3 (0-0.9); MONOCYTES % (AUTO) 11.4 % (2-12); NEUTROPHILS # (AUTO) 9.5 X10'3 (1.8-7.7); NEUTROPHILS % (AUTO) 72.8 % (42-75); PLATELET COUNT 641 X10'3 (140-440); RED BLOOD COUNT 2.55 X10'6 (4.70-6.10); RED CELL DISTRIBUTION WIDTH 18.3 % (11.5-14.5); WHITE BLOOD COUNT 13.1 X10'3 (4.5-11.0)
[2021-03-15 03:50] LABS: ALANINE AMINOTRANSFERASE 36 U/L (12-78); ALBUMIN 2.1 G/DL (3.4-5.0); ALBUMIN/GLOBULIN RATIO 0.5 (1.1-1.5); ALKALINE PHOSPHATASE 176 IU/L (46-116); ANION GAP 9 (8-16); ASPARTATE AMINO TRANSFERASE 43 U/L (10-37); BILIRUBIN,TOTAL 0.6 MG/DL (0.1-1.0); BLOOD UREA NITROGEN 10 MG/DL (7-18); BUN/CREATININE RATIO 19.6 (5.4-32.0); CALCIUM 8.4 MG/DL (8.5-10.1); CHLORIDE 105 MMOL/L (99-107); CREATININE 0.51 MG/DL (0.60-1.10); GLUCOSE 186 MG/DL (70-104); MAGNESIUM 1.8 MG/DL (1.5-2.4); PHOSPHORUS 3.3 MG/DL (2.3-4.5); POTASSIUM 3.5 MMOL/L (3.5-5.1); SODIUM 143 MMOL/L (135-145); TOTAL CARBON DIOXIDE 28.8 MMOL/L (24-32); TOTAL PROTEIN 6.4 G/DL (6.4-8.2); TRIGLYCERIDES 181 MG/DL (20-135); eGFR > 90 ML/MIN
--- NOTE | 2021-03-15 04:33 | NUR ---
Patient c/o feeling "stressed" Precedex was titrated up to max dose of 1.5. Asked patient for ideas about stress relief. Music By Margy played for patent with appearing reduced stress and improved comfort.
--- NOTE | 2021-03-15 06:35 | NUR ---
Problems reprioritized. Patient report given, questions answered & plan of care reviewed with GABRIELA Valentine.
[2021-03-15] MEDS: LORazepam 2 mg/ml vial IV PRN (08:17)
[2021-03-15] MEDS: pantoprazole 40MG/NS 100ML BAG 100 ML IV SCH (08:22)
[2021-03-15] MEDS: thiamine 100mg/ml 2ml inj. IV SCH (08:23)
[2021-03-15] MEDS: folic acid 1mg/0.2ml inj IV SCH (08:24)
[2021-03-15] MEDS: QUEtiapine 25mg tablet OGT SCH ×3 (08:26→20:00)
[2021-03-15] MEDS: apixaban 5mg tablet OGT SCH ×2 (08:26→19:59)
[2021-03-15] MEDS: propranolol 10mg tablet PO SCH ×2 (08:26→20:00)
--- NOTE | 2021-03-15 09:00 | NUR ---
Assisted patient with oral care and teeth brushing. Patient did the majority on his own. In comparison to yesterday, he seems more coordinated. Patient was able to use his IS and flutter valve and bring up a good amount of rust colored thick sputum.
--- NOTE | 2021-03-15 10:30 | NUR ---
Dr. Barton would like the patient off of Precedex and gave orders to wean him off. Patient's Seroquel to be at an increased dose and patient also to be started on Librium to hopefully help with anxiety and prepare him to go to the floor.
[2021-03-15] MEDS: chlordiazePOXIDE 25mg capsule PO SCH ×2 (11:18→19:59)
--- NOTE | 2021-03-15 11:39 | NUR ---
Reassessment: Pt continues on TPN at goal rate and tolerating. Per nursing note, pt w/ open wound on coccyx, awaiting further WOC assessment. Pt noted w/ 50ml stool output today, previously receiving routine colace and miralax, last dose 1/2 though they are now d/c in EMR. No change to recommendations at this time, will continue to monitor. Recs: 1. Continuous TPN per MD via PICC using 2:1 Clinimix E 5/20 at 100ml/hr goal w/ separate 100ml 20% intralipids to run for 12 hours each day at 8.33ml/hr. In total; to provide 2400ml volume/day, 120g AA, 480g DEX(3.06 mg/kg/min), and 2312 kcals/day. Initiate at 30ml/hr and if tolerated advance Q12H to goal. 2. advance diet as medically indicated to heart healthy per [employer] ANALYST/MD recs 3. TG/PALB Q /; daily wts 4. Routine Thiamine and folic acid for EtOH hx 5. Routine bowel care Addendum: 03/15/21 at [address] Amended: Links added.
--- NOTE | 2021-03-15 16:19 | NUR ---
Patient asked what he could do to relieve his anxiety. LILIANE OCHOA had reported this morning that patient likes to listen to classical music by Margy. Patient was asked if he would like to listen to that again and he nodded "yes". Music was turned on for patient and he slowly became more relaxed. Addendum: 03/15/21 at 1730 by Meme Vazquez RN This note was charted at 1619 but interaction occured at 1300.
--- NOTE | 2021-03-15 17:23 | NUR ---
Primary nurse coming around corner from the dirty utility room and saw patient sitting up at side of bed. Patient has not previously been out of bed. Primary nurse shouted across the room "No, Buck, NO! Wait a minute" but patient continued to lean forward to stand when he fell forward to the floor. Patient tried to catch himself with his hands but did hit the right lateral side of his forehead. X6 people in to help lift patient off of the floor and back to the bed. Patient pulled up in bed and then asked what happened. Patient stated he felt like he had to pee and forgot that he was in the hospital. Patient was reoriented and assessed. Patient has large lump forming on the right lateral side of his forehead. Dr. Barton notified and received orders for CT. Prior to fall patient had not been getting confused and was able to use his call light. The main change has been weaning him off of the Precedex. Precedex was turned back on. Patient prepared for CT.
[2021-03-15] MEDS: fat emulsion 20% inj. 100 ML IV SCH (20:00)
[2021-03-15] MEDS: insulin glargine (Lantus) pen - multi-dose SQ SCH (20:03)
[2021-03-16] VITALS (20 sets, daily range): BP systolic 99–139; BP diastolic 51–84
[2021-03-16 01:03] LABS: HEMOGLOBIN 8.8 g/dl (14.0-17.9)
[2021-03-16 01:06] LABS: BASOPHILS # (AUTO) 0.1 X10'3 (0-0.2); BASOPHILS % (AUTO) 0.5 % (0-1); EOSINOPHILS # (AUTO) 0.4 X10'3 (0-0.9); HEMATOCRIT 26.4 % (42.0-52.0); LYMPHOCYTES # (AUTO) 1.6 X10'3 (1.1-4.8); LYMPHOCYTES % (AUTO) 12.3 % (21-51); MEAN CORPUSCULAR HEMOGLOBIN 35.4 PG (27.0-31.0); MEAN CORPUSCULAR HGB CONC 33.3 g/dL (33.0-36.5); MEAN PLATELET VOLUME 8.6 FL (7.4-10.4); MONOCYTES # (AUTO) 1.5 X10'3 (0-0.9); MONOCYTES % (AUTO) 11.7 % (2-12); NEUTROPHILS # (AUTO) 9.3 X10'3 (1.8-7.7); NEUTROPHILS % (AUTO) 72.5 % (42-75); PLATELET COUNT 625 X10'3 (140-440); RED BLOOD COUNT 2.49 X10'6 (4.70-6.10); RED CELL DISTRIBUTION WIDTH 17.9 % (11.5-14.5); WHITE BLOOD COUNT 12.8 X10'3 (4.5-11.0)
[2021-03-16] MEDS: dexmedetomidin/NS 400mcg/100ml 100 ML IV PRN ×2 (01:09→08:23)
[2021-03-16] MEDS: insulin regular, human U-100 3ml vial - multi-dose SQ SCH ×4 (01:56→20:40)
[2021-03-16] MEDS: chlordiazePOXIDE 25mg capsule PO SCH ×3 (03:08→20:13)
[2021-03-16 03:18] LABS: ALANINE AMINOTRANSFERASE 36 U/L (12-78); ALBUMIN 2.3 G/DL (3.4-5.0); ALBUMIN/GLOBULIN RATIO 0.5 (1.1-1.5); ALKALINE PHOSPHATASE 197 IU/L (46-116); ANION GAP 8 (8-16); ASPARTATE AMINO TRANSFERASE 51 U/L (10-37); BILIRUBIN,TOTAL 0.6 MG/DL (0.1-1.0); BLOOD UREA NITROGEN 12 MG/DL (7-18); BUN/CREATININE RATIO 23.5 (5.4-32.0); CALCIUM 8.6 MG/DL (8.5-10.1); CHLORIDE 105 MMOL/L (99-107); CREATININE 0.51 MG/DL (0.60-1.10); GLUCOSE 135 MG/DL (70-104); POTASSIUM 3.5 MMOL/L (3.5-5.1); SODIUM 140 MMOL/L (135-145); TOTAL CARBON DIOXIDE 26.8 MMOL/L (24-32); TOTAL PROTEIN 6.7 G/DL (6.4-8.2); eGFR > 90 ML/MIN
[2021-03-16] MEDS: HYDROcodone/acetaminophen 10/325mg tab PO PRN ×2 (05:32→23:26)
[2021-03-16] MEDS ORDERED: ketorolac trometh. 30mg/ml inj. IV PRN (05:35)
[2021-03-16] MEDS: pantoprazole 40MG/NS 100ML BAG 100 ML IV SCH (08:43)
[2021-03-16] MEDS: piperacillin/tazobactam inj. 3.375 GM in NS 50ml IV SCH ×3 (08:43→23:19)
[2021-03-16] MEDS: propranolol 10mg tablet PO SCH ×2 (08:44→20:14)
[2021-03-16] MEDS: thiamine 100mg/ml 2ml inj. IV SCH (08:44)
[2021-03-16] MEDS: QUEtiapine 25mg tablet OGT SCH ×3 (08:44→20:14)
[2021-03-16] MEDS: apixaban 5mg tablet OGT SCH ×2 (08:44→20:13)
[2021-03-16] MEDS: folic acid 1mg/0.2ml inj IV SCH (08:57)
[2021-03-16] MEDS: ondansetron/PF 4mg/2ml inj IV PRN (11:41)
[2021-03-16] MEDS: MVI, adult No.4 with vit. K 10 ML in dextrose 5% water 500ml 500 ML IV SCH ×2 (15:20)
[2021-03-16] MEDS: ZINC/COPPER/MANGANESE/SELENIUM 0.5 ML, chromic chloride inj. 5 MCG in AA 5%/CALCIUM/LYT... IV SCH ×2 (16:24→16:25)
--- NOTE | 2021-03-16 17:34 | NUR ---
All pt belongings accounted for prior to transfer. Report called to GABRIELA Vargas.
--- NOTE | 2021-03-16 17:48 | NUR ---
pt transferred from icu at 1745, a/o x3,feliciano, in nad, slow, quiet voice. coughing with mod sputum production. vss st per monitor, room air. lungs dim bilat with exp wheeze to left lower lobe. bs active x 4, f/c draining clear yellow urine. dti right heel, st 2 coccyx, bruised swollen left eye. right ua pic 3 lumen with tpn, mvi and abx infusing. sitter at bedside.
[2021-03-16] MEDS: fat emulsion 20% inj. 100 ML IV SCH (20:20)
[2021-03-16] MEDS: insulin glargine (Lantus) pen - multi-dose SQ SCH (20:41)
[2021-03-17 02:00] VITALS: BP 126/80
[2021-03-17] MEDS: chlordiazePOXIDE 25mg capsule PO SCH ×3 (03:20→19:33)
[2021-03-17] MEDS: insulin regular, human U-100 3ml vial - multi-dose SQ SCH ×2 (03:33→19:26)
[2021-03-17 06:00] VITALS: BP 133/89
--- NOTE | 2021-03-17 06:56 | NUR ---
Patient in room MED 312. I have received report from GABRIELA MOYER, and had the opportunity to ask questions and assume patient care.
[2021-03-17 07:03] LABS: BASOPHILS # (AUTO) 0.1 X10'3 (0-0.2); EOSINOPHILS # (AUTO) 0.8 X10'3 (0-0.9); EOSINOPHILS % (AUTO) 5.5 % (0-6); MEAN PLATELET VOLUME 8.8 FL (7.4-10.4)
[2021-03-17 07:04] LABS: BASOPHILS % (AUTO) 0.9 % (0-1); HEMATOCRIT 29.5 % (42.0-52.0); LYMPHOCYTES # (AUTO) 1.8 X10'3 (1.1-4.8); LYMPHOCYTES % (AUTO) 12.8 % (21-51); MEAN CORPUSCULAR HEMOGLOBIN 35.4 PG (27.0-31.0); MEAN CORPUSCULAR HGB CONC 33.7 g/dL (33.0-36.5); MONOCYTES # (AUTO) 1.7 X10'3 (0-0.9); MONOCYTES % (AUTO) 11.7 % (2-12); NEUTROPHILS # (AUTO) 9.8 X10'3 (1.8-7.7); NEUTROPHILS % (AUTO) 69.1 % (42-75); PLATELET COUNT 709 X10'3 (140-440); RED BLOOD COUNT 2.81 X10'6 (4.70-6.10); RED CELL DISTRIBUTION WIDTH 17.7 % (11.5-14.5); WHITE BLOOD COUNT 14.2 X10'3 (4.5-11.0)
[2021-03-17] MEDS: ondansetron/PF 4mg/2ml inj IV PRN ×2 (07:50→18:08)
[2021-03-17] MEDS: multivitamins, therapeutics tablet PO SCH (07:55)
[2021-03-17] MEDS: apixaban 5mg tablet OGT SCH ×2 (07:55→19:33)
[2021-03-17] MEDS: thiamine 100mg tablet PO SCH (07:56)
[2021-03-17] MEDS: QUEtiapine 25mg tablet OGT SCH ×3 (07:56→21:34)
[2021-03-17] MEDS: propranolol 10mg tablet PO SCH ×2 (07:56→19:34)
[2021-03-17] MEDS: folic acid 1mg tablet PO SCH (07:56)
[2021-03-17 08:44] LABS: PLATELET ESTIMATE INCREASED
[2021-03-17 08:45] LABS: ANISOCYTOSIS 1+; LARGE PLATELETS FEW
[2021-03-17 10:00] VITALS: BP 119/83
[2021-03-17] MEDS: pantoprazole 40MG/NS 100ML BAG 100 ML IV SCH (11:19)
[2021-03-17] MEDS: piperacillin/tazobactam inj. 3.375 GM in NS 50ml IV SCH ×2 (12:51→16:57)
[2021-03-17] MEDS: ZINC/COPPER/MANGANESE/SELENIUM 0.5 ML, chromic chloride inj. 5 MCG in AA 5%/CALCIUM/LYT... IV SCH ×2 (13:06→22:30)
[2021-03-17 14:00] VITALS: BP 133/86
--- NOTE | 2021-03-17 17:18 | NUR ---
WOUND CARE PROVIDED BY GABRIELA BECERRA, FROM WOUND TEAM.
[2021-03-17 18:00] VITALS: BP 126/66
--- NOTE | 2021-03-17 18:56 | NUR ---
Problems reprioritized. Patient report given, questions answered & plan of care reviewed with GABRIELA PETTY.
[2021-03-17] MEDS: fat emulsion 20% inj. 100 ML IV SCH (19:33)
[2021-03-17] MEDS: insulin glargine (Lantus) pen - multi-dose SQ SCH (21:49)
[2021-03-17 22:00] VITALS: BP 130/70
[2021-03-18] MEDS: piperacillin/tazobactam inj. 3.375 GM in NS 50ml IV SCH ×3 (00:36→16:14)
[2021-03-18] MEDS: ZINC/COPPER/MANGANESE/SELENIUM 0.5 ML, chromic chloride inj. 5 MCG in AA 5%/CALCIUM/LYT... IV SCH ×3 (00:37→20:49)
[2021-03-18 02:00] VITALS: BP 126/70
[2021-03-18] MEDS: chlordiazePOXIDE 25mg capsule PO SCH ×3 (02:40→20:52)
[2021-03-18] MEDS: insulin regular, human U-100 3ml vial - multi-dose SQ SCH ×4 (03:24→21:13)
[2021-03-18 06:18] LABS: BASOPHILS # (AUTO) 0.1 X10'3 (0-0.2); BASOPHILS % (AUTO) 0.6 % (0-1); MONOCYTES # (AUTO) 1.3 X10'3 (0-0.9)
[2021-03-18 06:20] LABS: EOSINOPHILS % (AUTO) 6.3 % (0-6); HEMATOCRIT 30.3 % (42.0-52.0); LYMPHOCYTES # (AUTO) 1.6 X10'3 (1.1-4.8); LYMPHOCYTES % (AUTO) 10.1 % (21-51); MEAN CORPUSCULAR HEMOGLOBIN 34.4 PG (27.0-31.0); MEAN CORPUSCULAR HGB CONC 33.2 g/dL (33.0-36.5); MEAN CORPUSCULAR VOLUME 103.8 FL (78-98); MEAN PLATELET VOLUME 8.5 FL (7.4-10.4); NEUTROPHILS # (AUTO) 11.8 X10'3 (1.8-7.7); PLATELET COUNT 657 X10'3 (140-440); RED BLOOD COUNT 2.92 X10'6 (4.70-6.10); RED CELL DISTRIBUTION WIDTH 17.7 % (11.5-14.5); WHITE BLOOD COUNT 15.7 X10'3 (4.5-11.0)
[2021-03-18 06:33] LABS: ALANINE AMINOTRANSFERASE 45 U/L (12-78); ALBUMIN 2.6 G/DL (3.4-5.0); ALBUMIN/GLOBULIN RATIO 0.5 (1.1-1.5); ALKALINE PHOSPHATASE 225 IU/L (46-116); ANION GAP 7 (8-16); ASPARTATE AMINO TRANSFERASE 35 U/L (10-37); BILIRUBIN,TOTAL 0.8 MG/DL (0.1-1.0); BLOOD UREA NITROGEN 10 MG/DL (7-18); BUN/CREATININE RATIO 16.9 (5.4-32.0); CHLORIDE 103 MMOL/L (99-107); CREATININE 0.59 MG/DL (0.60-1.10); GLUCOSE 213 MG/DL (70-104); PHOSPHORUS 3.9 MG/DL (2.3-4.5); POTASSIUM 3.6 MMOL/L (3.5-5.1); SODIUM 138 MMOL/L (135-145); TOTAL CARBON DIOXIDE 28.1 MMOL/L (24-32); TOTAL PROTEIN 7.5 G/DL (6.4-8.2); TRIGLYCERIDES 149 MG/DL (20-135); eGFR > 90 ML/MIN
--- NOTE | 2021-03-18 06:35 | NUR ---
Problems reprioritized. Patient report given, questions answered & plan of care reviewed with ever OCHOA.
[2021-03-18 07:00] VITALS: BP 132/75
[2021-03-18] MEDS: ondansetron/PF 4mg/2ml inj IV PRN (07:29)
[2021-03-18] MEDS: pantoprazole 40MG/NS 100ML BAG 100 ML IV SCH (07:35)
[2021-03-18] MEDS: multivitamins, therapeutics tablet PO SCH (07:37)
[2021-03-18] MEDS: propranolol 10mg tablet PO SCH ×2 (07:37→20:47)
[2021-03-18] MEDS: QUEtiapine 25mg tablet OGT SCH ×3 (07:37→20:46)
[2021-03-18] MEDS: apixaban 5mg tablet OGT SCH ×2 (07:37→20:46)
[2021-03-18] MEDS: thiamine 100mg tablet PO SCH (07:37)
[2021-03-18] MEDS: folic acid 1mg tablet PO SCH (07:37)
[2021-03-18 11:00] VITALS: BP 131/72
--- NOTE | 2021-03-18 11:05 | NUR ---
Reassessment: Pt continues on TPN at goal rate and tolerating as well as a Clear liquid diet w/ intake 71% x 3 meals. Discussed w/ RN and MD about advancing diet. MD is okay w/ full liquid diet at this time and if pt tolerates it can advance to a low fat diet. Pt noted w/ DTI to R heel and no other open areas per WOC assessment. LBM 03/17. Will continue to monitor. Recs: 1. Continuous TPN per MD via PICC using 2:1 Clinimix E 5/20 at 100ml/hr goal w/ separate 100ml 20% intralipids to run for 12 hours each day at 8.33ml/hr. In total; to provide 2400ml volume/day, 120g AA, 480g DEX(3.06 mg/kg/min), and 2312 kcals/day. Initiate at 30ml/hr and if tolerated advance Q12H to goal. 2. Advance to Low fat diet as medically indicated per MD 3. TG/PALB Q /; daily wts 4. Routine Thiamine and folic acid for EtOH hx 5. Routine bowel care 6. Once pt able to meet greater than 65% of est nutrient needs through PO diet, consider weaning TPN Addendum: 03/18/21 at [address] Amended: Links added.
[2021-03-18 15:00] VITALS: BP 117/69
[2021-03-18 18:00] VITALS: BP 136/86
--- NOTE | 2021-03-18 18:13 | NUR ---
Patient in room MED 307. I have received report from ABHINAV OCHOA and had the opportunity to ask questions and assume patient care.
[2021-03-18] MEDS: HYDROcodone/acetaminophen 10/325mg tab PO PRN (20:46)
[2021-03-18] MEDS: fat emulsion 20% inj. 100 ML IV SCH (20:49)
[2021-03-18] MEDS: insulin glargine (Lantus) pen - multi-dose SQ SCH (21:23)
[2021-03-18 22:00] VITALS: BP 127/74
[2021-03-19] MEDS: piperacillin/tazobactam inj. 3.375 GM in NS 50ml IV SCH ×3 (00:03→17:45)
[2021-03-19 02:00] VITALS: BP 124/67
[2021-03-19] MEDS: insulin regular, human U-100 3ml vial - multi-dose SQ SCH ×2 (02:32→14:25)
[2021-03-19] MEDS: chlordiazePOXIDE 25mg capsule PO SCH ×3 (02:32→21:55)
[2021-03-19 04:34] LABS: BASOPHILS # (AUTO) 0.2 X10'3 (0-0.2); BASOPHILS % (AUTO) 1.1 % (0-1); HEMOGLOBIN 10.6 g/dl (14.0-17.9); MONOCYTES # (AUTO) 1.4 X10'3 (0-0.9)
[2021-03-19 04:36] LABS: EOSINOPHILS # (AUTO) 1.4 X10'3 (0-0.9); EOSINOPHILS % (AUTO) 9.9 % (0-6); HEMATOCRIT 32.4 % (42.0-52.0); LYMPHOCYTES # (AUTO) 1.9 X10'3 (1.1-4.8); LYMPHOCYTES % (AUTO) 13.3 % (21-51); MEAN CORPUSCULAR HEMOGLOBIN 34.2 PG (27.0-31.0); MEAN CORPUSCULAR HGB CONC 32.8 g/dL (33.0-36.5); MEAN CORPUSCULAR VOLUME 104.2 FL (78-98); MEAN PLATELET VOLUME 8.8 FL (7.4-10.4); MONOCYTES % (AUTO) 9.4 % (2-12); NEUTROPHILS # (AUTO) 9.6 X10'3 (1.8-7.7); NEUTROPHILS % (AUTO) 66.3 % (42-75); PLATELET COUNT 636 X10'3 (140-440); RED BLOOD COUNT 3.11 X10'6 (4.70-6.10); RED CELL DISTRIBUTION WIDTH 17.9 % (11.5-14.5); WHITE BLOOD COUNT 14.5 X10'3 (4.5-11.0)
[2021-03-19 04:50] LABS: ALANINE AMINOTRANSFERASE 43 U/L (12-78); ALBUMIN 2.7 G/DL (3.4-5.0); ALBUMIN/GLOBULIN RATIO 0.5 (1.1-1.5); ALKALINE PHOSPHATASE 238 IU/L (46-116); ANION GAP 7 (8-16); ASPARTATE AMINO TRANSFERASE 33 U/L (10-37); BILIRUBIN,TOTAL 0.6 MG/DL (0.1-1.0); BLOOD UREA NITROGEN 10 MG/DL (7-18); BUN/CREATININE RATIO 15.4 (5.4-32.0); CALCIUM 9.5 MG/DL (8.5-10.1); CHLORIDE 104 MMOL/L (99-107); CREATININE 0.65 MG/DL (0.60-1.10); GLUCOSE 131 MG/DL (70-104); PHOSPHORUS 5.5 MG/DL (2.3-4.5); POTASSIUM 3.5 MMOL/L (3.5-5.1); SODIUM 141 MMOL/L (135-145); TOTAL CARBON DIOXIDE 29.8 MMOL/L (24-32); TOTAL PROTEIN 7.9 G/DL (6.4-8.2); TRIGLYCERIDES 151 MG/DL (20-135); eGFR > 90 ML/MIN
[2021-03-19] MEDS: ZINC/COPPER/MANGANESE/SELENIUM 0.5 ML, chromic chloride inj. 5 MCG in AA 5%/CALCIUM/LYT... IV SCH ×2 (05:21→16:04)
[2021-03-19 06:00] VITALS: BP 102/58
--- NOTE | 2021-03-19 06:34 | NUR ---
Problems reprioritized. Patient report given, questions answered & plan of care reviewed with ALEXANDER OCHOA.
[2021-03-19] MEDS: ondansetron/PF 4mg/2ml inj IV PRN (07:52)
[2021-03-19] MEDS: pantoprazole 40MG/NS 100ML BAG 100 ML IV SCH (07:53)
[2021-03-19] MEDS: QUEtiapine 25mg tablet OGT SCH ×3 (07:54→21:55)
[2021-03-19] MEDS: apixaban 5mg tablet OGT SCH ×2 (07:54→20:00)
[2021-03-19] MEDS: thiamine 100mg tablet PO SCH (07:54)
[2021-03-19] MEDS: folic acid 1mg tablet PO SCH (07:54)
[2021-03-19] MEDS: multivitamins, therapeutics tablet PO SCH (07:54)
[2021-03-19] MEDS: propranolol 10mg tablet PO SCH ×2 (07:59→22:00)
--- NOTE | 2021-03-19 10:47 | NUR ---
Met with patient in regards to alcohol use and to see if patient was interested in resources for treatment options. Patient is interested in rehab. I let patient know that I would talk to his social media manager and have her [facility]. I gave patient the [facility] office number and my card so he could call me if he had any questions.
[2021-03-19] MEDS ORDERED: salt irrigation nasal spray 45 ML SPRAY NS PRN (13:00)
[2021-03-19 14:12] LABS: MAGNESIUM 2.1 MG/DL (1.5-2.4)
[2021-03-19 16:00] VITALS: BP 122/65
[2021-03-19] MEDS: MVI, adult No.4 with vit. K 10 ML in dextrose 5% water 500ml 500 ML IV SCH ×2 (16:04)
[2021-03-19] MEDS: fat emulsion 20% inj. 100 ML IV SCH (21:55)
[2021-03-19 22:00] VITALS: BP 124/74
[2021-03-19] MEDS: insulin glargine (Lantus) pen - multi-dose SQ SCH (23:41)
[2021-03-20] MEDS: piperacillin/tazobactam inj. 3.375 GM in NS 50ml IV SCH ×3 (00:41→16:25)
[2021-03-20] MEDS: ZINC/COPPER/MANGANESE/SELENIUM 0.5 ML, chromic chloride inj. 5 MCG in AA 5%/CALCIUM/LYT... IV SCH ×3 (00:42→22:12)
[2021-03-20 02:00] VITALS: BP 115/63
[2021-03-20] MEDS: chlordiazePOXIDE 25mg capsule PO SCH ×3 (02:52→20:02)
[2021-03-20] MEDS: insulin regular, human U-100 3ml vial - multi-dose SQ SCH (02:59)
[2021-03-20] MEDS: HYDROcodone/acetaminophen 10/325mg tab PO PRN (05:09)
[2021-03-20 06:06] VITALS: BP 122/76
[2021-03-20] MEDS: pantoprazole 40MG/NS 100ML BAG 100 ML IV SCH (07:40)
[2021-03-20] MEDS: ondansetron/PF 4mg/2ml inj IV PRN (07:42)
[2021-03-20] MEDS: propranolol 10mg tablet PO SCH ×2 (07:42→20:01)
[2021-03-20] MEDS: apixaban 5mg tablet OGT SCH ×2 (07:43→20:01)
[2021-03-20] MEDS: QUEtiapine 25mg tablet OGT SCH ×3 (07:43→20:01)
[2021-03-20] MEDS: multivitamins, therapeutics tablet PO SCH (07:43)
[2021-03-20] MEDS: thiamine 100mg tablet PO SCH (07:43)
[2021-03-20] MEDS: folic acid 1mg tablet PO SCH (07:43)
[2021-03-20 11:11] VITALS: BP 111/64
[2021-03-20 11:27] LABS: ALANINE AMINOTRANSFERASE 60 U/L (12-78); ALBUMIN 2.9 G/DL (3.4-5.0); ALBUMIN/GLOBULIN RATIO 0.6 (1.1-1.5); ALKALINE PHOSPHATASE 276 IU/L (46-116); ANION GAP 9 (8-16); ASPARTATE AMINO TRANSFERASE 41 U/L (10-37); BILIRUBIN,TOTAL 0.7 MG/DL (0.1-1.0); BLOOD UREA NITROGEN 14 MG/DL (7-18); BUN/CREATININE RATIO 21.9 (5.4-32.0); CALCIUM 9.4 MG/DL (8.5-10.1); CHLORIDE 99 MMOL/L (99-107); CREATININE 0.64 MG/DL (0.60-1.10); GLUCOSE 188 MG/DL (70-104); POTASSIUM 4.1 MMOL/L (3.5-5.1); SODIUM 136 MMOL/L (135-145); TOTAL CARBON DIOXIDE 27.9 MMOL/L (24-32); eGFR > 90 ML/MIN
[2021-03-20] MEDS: normal saline 1000ml 1,000 ML IV SCH ×3 (12:14→20:20)
[2021-03-20 15:15] VITALS: BP 118/71
[2021-03-20] MEDS: acetaminophen 325mg tablet OGT PRN (16:25)
[2021-03-20] MEDS: pantoprazole 40mg Tablet.DR PO SCH (16:26)
[2021-03-20] MEDS: ketorolac trometh. 30mg/ml inj. IV PRN (17:40)
[2021-03-20] MEDS: fat emulsion 20% inj. 100 ML IV SCH (20:01)
[2021-03-20] MEDS: insulin glargine (Lantus) pen - multi-dose SQ SCH (20:20)
[2021-03-20 22:00] VITALS: BP 105/67
[2021-03-21] MEDS: piperacillin/tazobactam inj. 3.375 GM in NS 50ml IV SCH ×3 (00:50→15:47)
[2021-03-21 02:00] VITALS: BP 115/64
[2021-03-21] MEDS: chlordiazePOXIDE 25mg capsule PO SCH ×3 (02:55→20:19)
[2021-03-21] MEDS: normal saline 1000ml 1,000 ML IV SCH ×3 (02:55→20:23)
[2021-03-21] MEDS: ketorolac trometh. 30mg/ml inj. IV PRN (05:50)
[2021-03-21 06:00] VITALS: BP 122/76
[2021-03-21] MEDS: ZINC/COPPER/MANGANESE/SELENIUM 0.5 ML, chromic chloride inj. 5 MCG in AA 5%/CALCIUM/LYT... IV SCH ×2 (06:46→20:24)
[2021-03-21] MEDS: insulin regular, human U-100 3ml vial - multi-dose SQ SCH ×3 (07:49→21:30)
[2021-03-21] MEDS: ondansetron/PF 4mg/2ml inj IV PRN (07:49)
[2021-03-21] MEDS: propranolol 10mg tablet PO SCH ×2 (07:50→20:20)
[2021-03-21] MEDS: folic acid 1mg tablet PO SCH (07:51)
[2021-03-21] MEDS: QUEtiapine 25mg tablet OGT SCH ×3 (07:51→20:20)
[2021-03-21] MEDS: multivitamins, therapeutics tablet PO SCH (07:51)
[2021-03-21] MEDS: thiamine 100mg tablet PO SCH (07:51)
[2021-03-21] MEDS: pantoprazole 40mg Tablet.DR PO SCH ×2 (07:51→17:27)
--- NOTE | 2021-03-21 08:50 | NUR ---
Reassessment: Pt continues on TPN at goal rate and tolerating as well as a Heart healthy diet w/ avg intake 33%% x 6 meals since diet advancement 03/19. TC to RN who states MD is okay w/ ordering Ensure Enlive for the pt and hopefully begin to wean TPN if pt's PO improves w/ ONS. LBM 03/20. Will continue to monitor. Recs: 1. Continuous TPN per MD via PICC using 2:1 Clinimix E 5/20 at 100ml/hr goal w/ separate 100ml 20% intralipids to run for 12 hours each day at 8.33ml/hr. In total; to provide 2400ml volume/day, 120g AA, 480g DEX(3.06 mg/kg/min), and 2312 kcals/day. 2. Continue Heart healthy diet as tolerated 3. Ensure Enlive TID; pending MD verification 3. TG/PALB Q /; daily wts 4. Routine Thiamine and folic acid for EtOH hx 5. Routine bowel care 6. Wean TPN as pt consumes 50% of meals/ONS Addendum: 03/21/21 at [address] Amended: Links added.
[2021-03-21 09:32] LABS: BASOPHILS # (AUTO) 0.2 X10'3 (0-0.2); BASOPHILS % (AUTO) 1.3 % (0-1); EOSINOPHILS # (AUTO) 1.3 X10'3 (0-0.9); EOSINOPHILS % (AUTO) 11.3 % (0-6); HEMATOCRIT 28.9 % (42.0-52.0); HEMOGLOBIN 9.3 g/dl (14.0-17.9); LYMPHOCYTES # (AUTO) 1.4 X10'3 (1.1-4.8); LYMPHOCYTES % (AUTO) 12.2 % (21-51); MEAN CORPUSCULAR HEMOGLOBIN 33.1 PG (27.0-31.0); MEAN CORPUSCULAR HGB CONC 32.4 g/dL (33.0-36.5); MEAN CORPUSCULAR VOLUME 102.3 FL (78-98); MEAN PLATELET VOLUME 8.8 FL (7.4-10.4); MONOCYTES % (AUTO) 8.2 % (2-12); NEUTROPHILS # (AUTO) 7.9 X10'3 (1.8-7.7); PLATELET COUNT 473 X10'3 (140-440); RED BLOOD COUNT 2.82 X10'6 (4.70-6.10); RED CELL DISTRIBUTION WIDTH 18.4 % (11.5-14.5); WHITE BLOOD COUNT 11.7 X10'3 (4.5-11.0)
[2021-03-21 09:46] LABS: ALANINE AMINOTRANSFERASE 39 U/L (12-78); ALBUMIN 2.5 G/DL (3.4-5.0); ALBUMIN/GLOBULIN RATIO 0.5 (1.1-1.5); ALKALINE PHOSPHATASE 262 IU/L (46-116); ANION GAP 12 (8-16); ASPARTATE AMINO TRANSFERASE 25 U/L (10-37); BILIRUBIN,TOTAL 0.6 MG/DL (0.1-1.0); BLOOD UREA NITROGEN 15 MG/DL (7-18); BUN/CREATININE RATIO 22.1 (5.4-32.0); CALCIUM 8.6 MG/DL (8.5-10.1); CHLORIDE 102 MMOL/L (99-107); CREATININE 0.68 MG/DL (0.60-1.10); GLUCOSE 137 MG/DL (70-104); POTASSIUM 3.8 MMOL/L (3.5-5.1); SODIUM 139 MMOL/L (135-145); TOTAL CARBON DIOXIDE 25.3 MMOL/L (24-32); TOTAL PROTEIN 7.2 G/DL (6.4-8.2); eGFR > 90 ML/MIN
[2021-03-21 10:00] VITALS: BP 111/70
[2021-03-21] MEDS: ondansetron 4mg rapidly disintigrating tab PO SCH ×2 (12:37→17:27)
[2021-03-21] MEDS: apixaban 5mg tablet OGT SCH ×2 (12:39→20:20)
[2021-03-21] MEDS: lactose-reduced food (Ensure Enlive) - 237ml bottle PO SCH ×2 (13:00→18:00)
[2021-03-21 15:00] VITALS: BP 121/70
--- NOTE | 2021-03-21 17:27 | NUR ---
Patient is alert and oriented. Denies pain. Oral intake encouraged. Per Dr. Rivas, patient will continue TPN until he is able to eat more of his meals. Patient now has zofran scheduled prior to meals to help tolerate food intake. Wound picture taken. Worked with PT, patient ambulating with 2 fww.
[2021-03-21 18:20] VITALS: BP 120/82
--- NOTE | 2021-03-21 18:20 | NUR ---
Patient in room MED 307. I have received report from An OCHOA and had the opportunity to ask questions and assume patient care. Addendum: 03/22/21 at 0210 by Terrell Chopra RN Amended: Links added.
--- NOTE | 2021-03-21 18:31 | NUR ---
Problems reprioritized. Patient report given, questions answered & plan of care reviewed with Carmen OCHOA.
[2021-03-21] MEDS: fat emulsion 20% inj. 100 ML IV SCH (20:25)
[2021-03-21] MEDS: insulin glargine (Lantus) pen - multi-dose SQ SCH (21:37)
[2021-03-21] MEDS ORDERED: benzocaine/menthol oral lozeng 1 EACH BOX MM PRN (21:55)
[2021-03-21 22:00] VITALS: BP 133/74
[2021-03-22] VITALS (7 sets, daily range): BP systolic 105–133; BP diastolic 64–92
[2021-03-22] MEDS: piperacillin/tazobactam inj. 3.375 GM in NS 50ml IV SCH ×3 (00:01→16:16)
[2021-03-22] MEDS: normal saline 1000ml 1,000 ML IV SCH ×4 (00:50→23:10)
[2021-03-22] MEDS: temazepam 15mg capsule OGT PRN ×2 (00:53→20:18)
[2021-03-22] MEDS: ZINC/COPPER/MANGANESE/SELENIUM 0.5 ML, chromic chloride inj. 5 MCG in AA 5%/CALCIUM/LYT... IV SCH ×3 (02:50→19:18)
[2021-03-22] MEDS: chlordiazePOXIDE 25mg capsule PO SCH ×3 (03:00→20:21)
[2021-03-22] MEDS: insulin regular, human U-100 3ml vial - multi-dose SQ SCH ×4 (03:20→20:28)
[2021-03-22 03:40] LABS: BASOPHILS # (AUTO) 0.1 X10'3 (0-0.2); BASOPHILS % (AUTO) 1.1 % (0-1); EOSINOPHILS # (AUTO) 1.5 X10'3 (0-0.9); EOSINOPHILS % (AUTO) 12.8 % (0-6); HEMATOCRIT 27.3 % (42.0-52.0); HEMOGLOBIN 8.9 g/dl (14.0-17.9); LYMPHOCYTES # (AUTO) 1.5 X10'3 (1.1-4.8); LYMPHOCYTES % (AUTO) 13.2 % (21-51); MEAN CORPUSCULAR HEMOGLOBIN 33.5 PG (27.0-31.0); MEAN CORPUSCULAR HGB CONC 32.7 g/dL (33.0-36.5); MEAN CORPUSCULAR VOLUME 102.5 FL (78-98); MONOCYTES % (AUTO) 9.1 % (2-12); NEUTROPHILS # (AUTO) 7.3 X10'3 (1.8-7.7); NEUTROPHILS % (AUTO) 63.8 % (42-75); PLATELET COUNT 435 X10'3 (140-440); RED BLOOD COUNT 2.67 X10'6 (4.70-6.10); RED CELL DISTRIBUTION WIDTH 18.1 % (11.5-14.5); WHITE BLOOD COUNT 11.4 X10'3 (4.5-11.0)
[2021-03-22 04:04] LABS: ALANINE AMINOTRANSFERASE 50 U/L (12-78); ALBUMIN 2.4 G/DL (3.4-5.0); ALBUMIN/GLOBULIN RATIO 0.5 (1.1-1.5); ALKALINE PHOSPHATASE 261 IU/L (46-116); ANION GAP 10 (8-16); ASPARTATE AMINO TRANSFERASE 36 U/L (10-37); BILIRUBIN,TOTAL 0.5 MG/DL (0.1-1.0); BLOOD UREA NITROGEN 12 MG/DL (7-18); BUN/CREATININE RATIO 21.1 (5.4-32.0); CALCIUM 8.5 MG/DL (8.5-10.1); CHLORIDE 104 MMOL/L (99-107); CREATININE 0.57 MG/DL (0.60-1.10); GLUCOSE 95 MG/DL (70-104); POTASSIUM 3.7 MMOL/L (3.5-5.1); SODIUM 140 MMOL/L (135-145); TOTAL CARBON DIOXIDE 26.2 MMOL/L (24-32); TOTAL PROTEIN 7.4 G/DL (6.4-8.2); TRIGLYCERIDES 138 MG/DL (20-135); eGFR > 90 ML/MIN
--- NOTE | 2021-03-22 06:38 | NUR ---
Problems reprioritized. Patient report given, questions answered & plan of care reviewed with GABRIELA FREEMAN. Addendum: 03/22/21 at 0638 by Terrell Chopra RN Amended: Links added.
[2021-03-22] MEDS: apixaban 5mg tablet OGT SCH ×2 (07:31→20:22)
[2021-03-22] MEDS: thiamine 100mg tablet PO SCH (07:32)
[2021-03-22] MEDS: QUEtiapine 25mg tablet OGT SCH ×3 (07:32→20:18)
[2021-03-22] MEDS: propranolol 10mg tablet PO SCH ×3 (07:32→21:00)
[2021-03-22] MEDS: ondansetron 4mg rapidly disintigrating tab PO SCH ×3 (07:32→16:16)
[2021-03-22] MEDS: folic acid 1mg tablet PO SCH (07:32)
[2021-03-22] MEDS: pantoprazole 40mg Tablet.DR PO SCH ×2 (07:32→16:16)
[2021-03-22] MEDS: multivitamins, therapeutics tablet PO SCH (07:32)
[2021-03-22] MEDS: lactose-reduced food (Ensure Enlive) - 237ml bottle PO SCH ×3 (08:00→18:40)
[2021-03-22] MEDS: ketorolac trometh. 30mg/ml inj. IV PRN (10:27)
--- NOTE | 2021-03-22 18:28 | NUR ---
Problems reprioritized. Patient report given, questions answered & plan of care reviewed with Mirna OCHOA.
--- NOTE | 2021-03-22 20:12 | NUR ---
JUST FOUND OUT THAT PT HAS NOT BEEN GETTING ENOGHT INSULIN FOR LEVEL 6. IF I GIVE RIGHT AMOUNT OG INSULIN ON LEVEL 6, IT WILL BE TOO MUCH. TALKED TO DR TREVIÑO AND RE START ON LEVEL 2. Addendum: 03/22/21 at 2018 by Mirna Quinn RN ALSO DISCONTINUE ALY.
[2021-03-22] MEDS: fat emulsion 20% inj. 100 ML IV SCH (20:22)
[2021-03-23 02:00] VITALS: BP 120/63
[2021-03-23] MEDS: chlordiazePOXIDE 25mg capsule PO SCH ×3 (02:13→20:53)
[2021-03-23] MEDS: insulin regular, human U-100 3ml vial - multi-dose SQ SCH ×4 (02:13→20:46)
[2021-03-23] MEDS: normal saline 1000ml 1,000 ML IV SCH ×3 (05:30→20:55)
[2021-03-23] MEDS: ZINC/COPPER/MANGANESE/SELENIUM 0.5 ML, chromic chloride inj. 5 MCG in AA 5%/CALCIUM/LYT... IV SCH ×2 (05:30→16:44)
[2021-03-23 06:00] VITALS: BP 117/77
[2021-03-23 06:10] LABS: BASOPHILS # (AUTO) 0.1 X10'3 (0-0.2); BASOPHILS % (AUTO) 1.5 % (0-1); EOSINOPHILS # (AUTO) 1.6 X10'3 (0-0.9); HEMATOCRIT 27.4 % (42.0-52.0); HEMOGLOBIN 9.2 g/dl (14.0-17.9); LYMPHOCYTES # (AUTO) 1.8 X10'3 (1.1-4.8); LYMPHOCYTES % (AUTO) 17.7 % (21-51); MEAN CORPUSCULAR HGB CONC 33.6 g/dL (33.0-36.5); MEAN CORPUSCULAR VOLUME 101.2 FL (78-98); MEAN PLATELET VOLUME 8.9 FL (7.4-10.4); MONOCYTES # (AUTO) 0.9 X10'3 (0-0.9); MONOCYTES % (AUTO) 9.1 % (2-12); NEUTROPHILS # (AUTO) 5.5 X10'3 (1.8-7.7); NEUTROPHILS % (AUTO) 55.7 % (42-75); PLATELET COUNT 464 X10'3 (140-440); RED BLOOD COUNT 2.71 X10'6 (4.70-6.10); RED CELL DISTRIBUTION WIDTH 18.6 % (11.5-14.5)
[2021-03-23 06:34] LABS: ALANINE AMINOTRANSFERASE 56 U/L (12-78); ALBUMIN 2.5 G/DL (3.4-5.0); ALBUMIN/GLOBULIN RATIO 0.5 (1.1-1.5); ALKALINE PHOSPHATASE 241 IU/L (46-116); ANION GAP 10 (8-16); ASPARTATE AMINO TRANSFERASE 42 U/L (10-37); BILIRUBIN,TOTAL 0.4 MG/DL (0.1-1.0); BLOOD UREA NITROGEN 11 MG/DL (7-18); BUN/CREATININE RATIO 21.6 (5.4-32.0); CALCIUM 8.6 MG/DL (8.5-10.1); CHLORIDE 106 MMOL/L (99-107); CREATININE 0.51 MG/DL (0.60-1.10); GLUCOSE 84 MG/DL (70-104); PHOSPHORUS 4.5 MG/DL (2.3-4.5); POTASSIUM 3.8 MMOL/L (3.5-5.1); SODIUM 143 MMOL/L (135-145); TOTAL CARBON DIOXIDE 26.6 MMOL/L (24-32); TOTAL PROTEIN 7.5 G/DL (6.4-8.2); eGFR > 90 ML/MIN
--- NOTE | 2021-03-23 06:41 | NUR ---
Patient in room MED 307. I have received report from GABRIELA Bradley and had the opportunity to ask questions and assume patient care.
[2021-03-23] MEDS: ondansetron 4mg rapidly disintigrating tab PO SCH ×3 (07:42→16:43)
[2021-03-23] MEDS: pantoprazole 40mg Tablet.DR PO SCH ×2 (07:42→16:44)
[2021-03-23] MEDS: apixaban 5mg tablet OGT SCH ×2 (07:43→20:47)
[2021-03-23] MEDS: thiamine 100mg tablet PO SCH (07:43)
[2021-03-23] MEDS: folic acid 1mg tablet PO SCH (07:43)
[2021-03-23] MEDS: multivitamins, therapeutics tablet PO SCH (07:43)
[2021-03-23] MEDS: propranolol 10mg tablet PO SCH ×2 (07:44→08:00)
[2021-03-23] MEDS: amox tr/potassium clavulanate 875/125mg TAB PO SCH ×2 (07:44→18:07)
[2021-03-23] MEDS: QUEtiapine 25mg tablet OGT SCH ×3 (07:45→20:53)
[2021-03-23] MEDS: lactose-reduced food (Ensure Enlive) - 237ml bottle PO SCH ×3 (07:47→18:07)
[2021-03-23] MEDS: HYDROcodone/acetaminophen 10/325mg tab PO PRN (08:33)
[2021-03-23 11:00] VITALS: BP 122/68
[2021-03-23 12:31] LABS: LARGE PLATELETS FEW; PLATELET ESTIMATE INCREASED
[2021-03-23 12:32] LABS: ANISOCYTOSIS 2+
[2021-03-23] MEDS ORDERED: propranolol 10mg tablet PO SCH (13:00)
[2021-03-23 15:00] VITALS: BP 123/68
[2021-03-23] MEDS: MVI, adult No.4 with vit. K 10 ML in dextrose 5% water 500ml 500 ML IV SCH ×2 (15:48)
[2021-03-23 18:00] VITALS: BP 125/71
--- NOTE | 2021-03-23 18:34 | NUR ---
Patient in room MED 307. I have received report from GABRIELA CAMPBELL and had the opportunity to ask questions and assume patient care.
[2021-03-23] MEDS: diltiazem 30mg tablet PO SCH (20:53)
[2021-03-23] MEDS: fat emulsion 20% inj. 100 ML IV SCH (20:54)
[2021-03-23 22:00] VITALS: BP 124/71
[2021-03-24] MEDS: chlordiazePOXIDE 25mg capsule PO SCH ×3 (02:27→20:33)
[2021-03-24] MEDS: diltiazem 30mg tablet PO SCH ×4 (02:27→20:34)
[2021-03-24] MEDS: insulin regular, human U-100 3ml vial - multi-dose SQ SCH ×3 (02:27→19:33)
[2021-03-24] MEDS: ZINC/COPPER/MANGANESE/SELENIUM 0.5 ML, chromic chloride inj. 5 MCG in AA 5%/CALCIUM/LYT... IV SCH ×2 (02:34→15:12)
[2021-03-24] MEDS: normal saline 1000ml 1,000 ML IV SCH ×2 (02:39→16:31)
[2021-03-24 06:00] VITALS: BP 123/72
[2021-03-24 06:16] LABS: BASOPHILS # (AUTO) 0.3 X10'3 (0-0.2); LYMPHOCYTES % (AUTO) 16.7 % (21-51)
[2021-03-24 06:19] LABS: EOSINOPHILS % (AUTO) 16.8 % (0-6); HEMATOCRIT 30.2 % (42.0-52.0); MEAN CORPUSCULAR HEMOGLOBIN 33.5 PG (27.0-31.0); MEAN CORPUSCULAR HGB CONC 33.2 g/dL (33.0-36.5); MEAN CORPUSCULAR VOLUME 100.9 FL (78-98); MEAN PLATELET VOLUME 8.5 FL (7.4-10.4); MONOCYTES % (AUTO) 8.1 % (2-12); NEUTROPHILS # (AUTO) 6.8 X10'3 (1.8-7.7); NEUTROPHILS % (AUTO) 56.2 % (42-75); PLATELET COUNT 558 X10'3 (140-440); RED BLOOD COUNT 2.99 X10'6 (4.70-6.10); RED CELL DISTRIBUTION WIDTH 18.2 % (11.5-14.5); WHITE BLOOD COUNT 12.1 X10'3 (4.5-11.0)
--- NOTE | 2021-03-24 06:34 | NUR ---
Patient in room MED 307. I have received report from GABRIELA CAMPBELL, and had the opportunity to ask questions and assume patient care.
[2021-03-24] MEDS: pantoprazole 40mg Tablet.DR PO SCH ×2 (06:43→17:25)
[2021-03-24] MEDS: ondansetron 4mg rapidly disintigrating tab PO SCH ×3 (06:43→17:25)
[2021-03-24 07:02] LABS: BASOPHILS % (AUTO) 2.1 % (0-1)
[2021-03-24 07:03] LABS: ALANINE AMINOTRANSFERASE 73 U/L (12-78); ALBUMIN 2.9 G/DL (3.4-5.0); ALBUMIN/GLOBULIN RATIO 0.5 (1.1-1.5); ALKALINE PHOSPHATASE 242 IU/L (46-116); ANION GAP 10 (8-16); ASPARTATE AMINO TRANSFERASE 45 U/L (10-37); BILIRUBIN,TOTAL 0.4 MG/DL (0.1-1.0); BLOOD UREA NITROGEN 14 MG/DL (7-18); BUN/CREATININE RATIO 25.5 (5.4-32.0); CALCIUM 9.4 MG/DL (8.5-10.1); CHLORIDE 104 MMOL/L (99-107); CREATININE 0.55 MG/DL (0.60-1.10); GLUCOSE 68 MG/DL (70-104); PHOSPHORUS 4.9 MG/DL (2.3-4.5); POTASSIUM 4.1 MMOL/L (3.5-5.1); SODIUM 141 MMOL/L (135-145); TOTAL PROTEIN 8.4 G/DL (6.4-8.2); eGFR > 90 ML/MIN
--- NOTE | 2021-03-24 07:16 | NUR ---
PT REFUSING HEART MONITORING AND VS AT THIS TIME. Addendum: 03/24/21 at 0717 by Sharon Khan RN WRONG PT
[2021-03-24] MEDS: multivitamins, therapeutics tablet PO SCH (08:06)
[2021-03-24] MEDS: apixaban 5mg tablet OGT SCH ×2 (08:07→20:34)
[2021-03-24] MEDS: folic acid 1mg tablet PO SCH (08:07)
[2021-03-24] MEDS: amox tr/potassium clavulanate 875/125mg TAB PO SCH ×2 (08:07→17:25)
[2021-03-24] MEDS: thiamine 100mg tablet PO SCH (08:07)
[2021-03-24] MEDS: lactose-reduced food (Ensure Enlive) - 237ml bottle PO SCH ×3 (08:07→18:00)
[2021-03-24] MEDS: QUEtiapine 25mg tablet OGT SCH ×3 (08:07→20:34)
[2021-03-24] MEDS ORDERED: diltiazem 30mg tablet PO ONE (08:45)
[2021-03-24] MEDS ORDERED: digoxin 250mcg/ml 2ml ampule IV ONE (08:50)
--- NOTE | 2021-03-24 09:26 | NUR ---
Reassessment: Pt continues on TPN at goal rate and tolerating as well as a Heart healthy diet w/ avg intake 62% x 9 meals and 100% x 4 ONS. TC to RN recommendation to wean and d/c TPN if MD agreeable as pt is meeting nutrient needs through meal and ONS intake. LBM 03/23. Will continue to monitor and make recommendations as appropriate. Recs: 1. Wean to d/c Continuous TPN per MD via PICC using 2:1 Clinimix E 5/20 at 100ml/hr goal w/ separate 100ml 20% intralipids to run for 12 hours each day at 8.33ml/hr. In total; to provide 2400ml volume/day, 120g AA, 480g DEX(3.06 mg/kg/min), and 2312 kcals/day. 2. Continue Heart healthy diet as tolerated 3. Ensure Enlive TID 3. TG/PALB Q /; daily wts 4. Routine Thiamine and folic acid for EtOH hx 5. Routine bowel care Addendum: 03/24/21 at [address] Amended: Links added.
[2021-03-24 11:00] VITALS: BP 132/76
[2021-03-24] MEDS ORDERED: ZINC/COPPER/MANGANESE/SELENIUM 0.5 ML, chromic chloride inj. 5 MCG in AA 5%/CALCIUM/LYT... IV SCH (12:38)
--- NOTE | 2021-03-24 12:46 | NUR ---
TAPERING OF TPN STARTED AT 12:[address] SCHMIDT
[2021-03-24 15:00] VITALS: BP 123/68
--- NOTE | 2021-03-24 18:47 | NUR ---
Problems reprioritized. Patient report given, questions answered & plan of care reviewed with HARRY RN.
[2021-03-24 19:00] VITALS: BP 126/62
[2021-03-24] MEDS: digoxin 250mcg/ml 2ml ampule IV SCH (20:33)
[2021-03-24] MEDS: temazepam 15mg capsule OGT PRN (20:55)
[2021-03-24 23:00] VITALS: BP 115/53
[2021-03-25 02:30] VITALS: BP 125/52
[2021-03-25] MEDS: normal saline 1000ml 1,000 ML IV SCH ×3 (02:41→19:59)
[2021-03-25] MEDS: diltiazem 30mg tablet PO SCH ×4 (02:41→19:54)
[2021-03-25] MEDS: digoxin 250mcg/ml 2ml ampule IV SCH (02:42)
[2021-03-25] MEDS: chlordiazePOXIDE 25mg capsule PO SCH ×3 (02:43→19:54)
[2021-03-25 06:00] VITALS: BP 126/71
[2021-03-25 06:12] LABS: BASOPHILS # (AUTO) 0.1 X10'3 (0-0.2); BASOPHILS % (AUTO) 1.4 % (0-1); EOSINOPHILS # (AUTO) 1.4 X10'3 (0-0.9); EOSINOPHILS % (AUTO) 14.5 % (0-6); HEMATOCRIT 30.1 % (42.0-52.0); LYMPHOCYTES # (AUTO) 1.9 X10'3 (1.1-4.8); LYMPHOCYTES % (AUTO) 18.9 % (21-51); MEAN CORPUSCULAR HEMOGLOBIN 33.7 PG (27.0-31.0); MEAN CORPUSCULAR HGB CONC 33.3 g/dL (33.0-36.5); MEAN CORPUSCULAR VOLUME 101.1 FL (78-98); MEAN PLATELET VOLUME 8.5 FL (7.4-10.4); MONOCYTES # (AUTO) 0.8 X10'3 (0-0.9); NEUTROPHILS # (AUTO) 5.7 X10'3 (1.8-7.7); NEUTROPHILS % (AUTO) 57.2 % (42-75); PLATELET COUNT 436 X10'3 (140-440); RED BLOOD COUNT 2.98 X10'6 (4.70-6.10); RED CELL DISTRIBUTION WIDTH 18.4 % (11.5-14.5)
--- NOTE | 2021-03-25 06:25 | NUR ---
Patient in room MED 307. I have received report from iDxie RN and had the opportunity to ask questions and assume patient care.
[2021-03-25 06:35] LABS: ALANINE AMINOTRANSFERASE 61 U/L (12-78); ALBUMIN 2.9 G/DL (3.4-5.0); ALBUMIN/GLOBULIN RATIO 0.6 (1.1-1.5); ALKALINE PHOSPHATASE 230 IU/L (46-116); ANION GAP 12 (8-16); ASPARTATE AMINO TRANSFERASE 30 U/L (10-37); BILIRUBIN,TOTAL 0.4 MG/DL (0.1-1.0); BLOOD UREA NITROGEN 12 MG/DL (7-18); BUN/CREATININE RATIO 19.7 (5.4-32.0); CALCIUM 9.4 MG/DL (8.5-10.1); CHLORIDE 102 MMOL/L (99-107); CREATININE 0.61 MG/DL (0.60-1.10); GLUCOSE 110 MG/DL (70-104); POTASSIUM 3.6 MMOL/L (3.5-5.1); SODIUM 139 MMOL/L (135-145); TOTAL CARBON DIOXIDE 25.4 MMOL/L (24-32); TOTAL PROTEIN 7.8 G/DL (6.4-8.2); TRIGLYCERIDES 198 MG/DL (20-135); eGFR > 90 ML/MIN
[2021-03-25] MEDS: QUEtiapine 25mg tablet OGT SCH ×3 (07:56→21:15)
[2021-03-25] MEDS: amox tr/potassium clavulanate 875/125mg TAB PO SCH ×2 (07:56→17:21)
[2021-03-25] MEDS: multivitamins, therapeutics tablet PO SCH (07:57)
[2021-03-25] MEDS: propranolol 10mg tablet PO SCH ×3 (07:57→19:55)
[2021-03-25] MEDS: ondansetron 4mg rapidly disintigrating tab PO SCH ×3 (07:57→17:21)
[2021-03-25] MEDS: folic acid 1mg tablet PO SCH (07:58)
[2021-03-25] MEDS: apixaban 5mg tablet OGT SCH ×2 (07:58→19:55)
[2021-03-25] MEDS: pantoprazole 40mg Tablet.DR PO SCH ×2 (07:58→17:21)
[2021-03-25] MEDS: thiamine 100mg tablet PO SCH (07:58)
[2021-03-25] MEDS: lactose-reduced food (Ensure Enlive) - 237ml bottle PO SCH ×3 (08:31→18:00)
--- NOTE | 2021-03-25 10:25 | NUR ---
Ambulated Pt 250 ft with FWW on RA. No complaints of discomfort or SOB. HR reached 127 while ambulating.
[2021-03-25 11:00] VITALS: BP 123/73
[2021-03-25] MEDS: digoxin 250mcg (0.25mg) tablet PO SCH (12:22)
[2021-03-25 15:00] VITALS: BP 109/54
[2021-03-25 18:00] VITALS: BP 113/60
--- NOTE | 2021-03-25 18:10 | NUR ---
Problems reprioritized. Patient report given, questions answered & plan of care reviewed with Prudence RN.
--- NOTE | 2021-03-25 18:51 | NUR ---
Patient in room MED 307. I have received report from SHANIA OCHOA and had the opportunity to ask questions and assume patient care.
--- NOTE | 2021-03-25 18:57 | NUR ---
DC BLOOD GLUCOSE CHECKS. PATIENT NO LONGER ON TPN OF 03/24/2021 AND IS EATING 100% MEALS
[2021-03-25] MEDS: ketorolac trometh. 30mg/ml inj. IV PRN (19:53)
[2021-03-25 22:00] VITALS: BP 112/67
[2021-03-26 02:00] VITALS: BP 113/53
[2021-03-26] MEDS: chlordiazePOXIDE 25mg capsule PO SCH ×2 (02:32→11:00)
[2021-03-26] MEDS: propranolol 10mg tablet PO SCH ×3 (02:32→13:56)
[2021-03-26] MEDS: diltiazem 30mg tablet PO SCH ×3 (02:32→13:56)
[2021-03-26] MEDS: normal saline 1000ml 1,000 ML IV SCH (04:43)
[2021-03-26 05:31] LABS: ALANINE AMINOTRANSFERASE 51 U/L (12-78); ALBUMIN 2.7 G/DL (3.4-5.0); ALBUMIN/GLOBULIN RATIO 0.6 (1.1-1.5); ALKALINE PHOSPHATASE 212 IU/L (46-116); ANION GAP 10 (8-16); ASPARTATE AMINO TRANSFERASE 25 U/L (10-37); BILIRUBIN,TOTAL 0.4 MG/DL (0.1-1.0); BLOOD UREA NITROGEN 17 MG/DL (7-18); BUN/CREATININE RATIO 25.4 (5.4-32.0); CALCIUM 9.2 MG/DL (8.5-10.1); CHLORIDE 104 MMOL/L (99-107); CREATININE 0.67 MG/DL (0.60-1.10); GLUCOSE 102 MG/DL (70-104); PHOSPHORUS 6.5 MG/DL (2.3-4.5); POTASSIUM 3.9 MMOL/L (3.5-5.1); SODIUM 141 MMOL/L (135-145); TOTAL CARBON DIOXIDE 27.1 MMOL/L (24-32); TOTAL PROTEIN 7.2 G/DL (6.4-8.2); TRIGLYCERIDES 197 MG/DL (20-135); eGFR > 90 ML/MIN
[2021-03-26 06:00] VITALS: BP 113/46
--- NOTE | 2021-03-26 06:25 | NUR ---
Problems reprioritized. Patient report given, questions answered & plan of care reviewed with MERCED OCHOA.
[2021-03-26] MEDS: pantoprazole 40mg Tablet.DR PO SCH (07:33)
[2021-03-26] MEDS: acetaminophen 325mg tablet OGT PRN (07:34)
[2021-03-26] MEDS: thiamine 100mg tablet PO SCH (07:35)
[2021-03-26] MEDS: folic acid 1mg tablet PO SCH (07:35)
[2021-03-26] MEDS: digoxin 250mcg (0.25mg) tablet PO SCH (07:35)
[2021-03-26] MEDS: multivitamins, therapeutics tablet PO SCH (07:35)
[2021-03-26] MEDS: QUEtiapine 25mg tablet OGT SCH ×2 (07:36→13:59)
[2021-03-26] MEDS: apixaban 5mg tablet OGT SCH (07:37)
[2021-03-26] MEDS: amox tr/potassium clavulanate 875/125mg TAB PO SCH (07:37)
[2021-03-26] MEDS: ondansetron 4mg rapidly disintigrating tab PO SCH (07:37)
[2021-03-26] MEDS ORDERED: digoxin 250mcg (0.25mg) tablet PO SCH (08:00)
[2021-03-26] MEDS ORDERED: digoxin 250mcg/ml 2ml ampule IV SCH (08:00)
[2021-03-26] MEDS: lactose-reduced food (Ensure Enlive) - 237ml bottle PO SCH (08:45)
--- NOTE | 2021-03-26 09:17 | NUR ---
Paged Dr Brown PAGER ID: [phone] MESSAGE: [phone]. Emerson Quinones. Digoxin 250mcg x 2 orders. Verifying if 2 orders are accurate or 1 is a duplicate. Please advise. Jenifer [phone]
[2021-03-26 10:00] VITALS: BP 120/65
[2021-03-26] MEDS ORDERED: folic acid tablet PO (10:41)
[2021-03-26] MEDS ORDERED: PROP10TA10 PO (10:41)
[2021-03-26] MEDS ORDERED: PANT40TA54 PO (10:41)
[2021-03-26] MEDS ORDERED: APIX5TAB3 OGT (10:41)
[2021-03-26] MEDS ORDERED: thiamine tablet PO (10:41)
[2021-03-26] MEDS ORDERED: AMOX-580 PO (10:41)
[2021-03-26] MEDS ORDERED: DILT30TA2 PO (10:41)
[2021-03-26] MEDS ORDERED: MULT-25 PO (10:41)
[2021-03-26] MEDS ORDERED: DIGO250T4 PO (10:41)
[2021-03-26] MEDS ORDERED: NALT50TA PO (10:44)
--- NOTE | 2021-03-26 14:00 | NUR ---
Pt has been repositioning self. Up ad robert with FWW. Pt has been educated throughout shift re: health, diagnosis ect - pt has the opportunity to ask questions and get answers.
--- NOTE | 2021-03-26 14:02 | NUR ---
Pt stable for d/c. Per md orders. All d/c ppwk reviewed with patient and patient family member. All verbalized understanding. No questions, comments, or concerns at this time. New RX faxed to [place] pharmacy. All personal belongings were sent with patient family. Removed WHITNEY PICC per MD orders - minimal bleeding, covered with gauze and tegaderm. Pt was wheeled down in w/c by nursing staff to private vehicle.
== END 2021-03-26 14:20 | disposition home or self-care (01) | DRG 438 ==
LOC: ER 16:35 → ED HOLD 23:44 → PCU 3S 02-25 15:25 → ICU 2S 02-26 15:30 → MED 3N 03-16 17:00
PROVIDERS: ADMIT Family Medicine; ATTEND Internal Medicine
PROC: BW251ZZ Computerized Tomography (CT Scan) of Chest, Abdomen and Pelvis using Low Osmolar Contrast (ICD-10-PCS; 2021-02-24)
PROC: B32T1ZZ Computerized Tomography (CT Scan) of Left Pulmonary Artery using Low Osmolar Contrast (ICD-10-PCS; 2021-02-25)
PROC: B3201ZZ Computerized Tomography (CT Scan) of Thoracic Aorta using Low Osmolar Contrast (ICD-10-PCS; 2021-02-25)
PROC: B32S1ZZ Computerized Tomography (CT Scan) of Right Pulmonary Artery using Low Osmolar Contrast (ICD-10-PCS; 2021-02-25)
PROC: B4201ZZ Computerized Tomography (CT Scan) of Abdominal Aorta using Low Osmolar Contrast (ICD-10-PCS; 2021-02-25)
PROC: B4241ZZ Computerized Tomography (CT Scan) of Superior Mesenteric Artery using Low Osmolar Contrast (ICD-10-PCS; 2021-02-25)
PROC: B4281ZZ Computerized Tomography (CT Scan) of Bilateral Renal Arteries using Low Osmolar Contrast (ICD-10-PCS; 2021-02-25)
PROC: B42C1ZZ Computerized Tomography (CT Scan) of Pelvic Arteries using Low Osmolar Contrast (ICD-10-PCS; 2021-02-25)
PROC: B42H1ZZ Computerized Tomography (CT Scan) of Bilateral Lower Extremity Arteries using Low Osmolar Contrast (ICD-10-PCS; 2021-02-25)
PROC: B4211ZZ Computerized Tomography (CT Scan) of Celiac Artery using Low Osmolar Contrast (ICD-10-PCS; 2021-02-25)
PROC: 5A1955Z Respiratory Ventilation, Greater than 96 Consecutive Hours (ICD-10-PCS; principal; 2021-02-26)
PROC: 0BH17EZ Insertion of Endotracheal Airway into Trachea, Via Natural or Artificial Opening (ICD-10-PCS; 2021-02-26)
PROC: 5A09357 Assistance with Respiratory Ventilation, Less than 24 Consecutive Hours, Continuous Positive Airway Pressure (ICD-10-PCS; 2021-02-26)
PROC: 02HV33Z Insertion of Infusion Device into Superior Vena Cava, Percutaneous Approach (ICD-10-PCS; 2021-03-10)
PROC: B548ZZA Ultrasonography of Superior Vena Cava, Guidance (ICD-10-PCS; 2021-03-10)
PROC: 5A09357 Assistance with Respiratory Ventilation, Less than 24 Consecutive Hours, Continuous Positive Airway Pressure (ICD-10-PCS; 2021-03-13)
PROC: 5A09357 Assistance with Respiratory Ventilation, Less than 24 Consecutive Hours, Continuous Positive Airway Pressure (ICD-10-PCS; 2021-03-14)
PROC: 5A09357 Assistance with Respiratory Ventilation, Less than 24 Consecutive Hours, Continuous Positive Airway Pressure (ICD-10-PCS; 2021-03-15)
PROC: 5A09357 Assistance with Respiratory Ventilation, Less than 24 Consecutive Hours, Continuous Positive Airway Pressure (ICD-10-PCS; 2021-03-16)
DX: K85.21 Alcohol induced acute pancreatitis with uninfected necrosis (principal); E43 Unspecified severe protein-calorie malnutrition; J80 Acute respiratory distress syndrome; J15.211 Pneumonia due to Methicillin susceptible Staphylococcus aureus; N17.0 Acute kidney failure with tubular necrosis; R65.11 Systemic inflammatory response syndrome (SIRS) of non-infectious origin with acute organ dysfunction; K86.3 Pseudocyst of pancreas; K92.0 Hematemesis; E87.2 Acidosis; F10.231 Alcohol dependence with withdrawal delirium; R18.8 Other ascites; E87.0 Hyperosmolality and hypernatremia; J90 Pleural effusion, not elsewhere classified; F10.229 Alcohol dependence with intoxication, unspecified; G89.29 Other chronic pain; I95.9 Hypotension, unspecified; R00.0 Tachycardia, unspecified; E83.51 Hypocalcemia; E86.0 Dehydration; F43.10 Post-traumatic stress disorder, unspecified; E66.01 Morbid (severe) obesity due to excess calories; E80.6 Other disorders of bilirubin metabolism; Z20.822 Contact with and (suspected) exposure to COVID-19; E87.5 Hyperkalemia; D53.9 Nutritional anemia, unspecified; D75.1 Secondary polycythemia; K76.0 Fatty (change of) liver, not elsewhere classified; E86.1 Hypovolemia; I10 Essential (primary) hypertension; Z68.26 Body mass index [BMI] 26.0-26.9, adult; Z86.718 Personal history of other venous thrombosis and embolism; Z88.0 Allergy status to penicillin; Z79.01 Long term (current) use of anticoagulants; Z88.1 Allergy status to other antibiotic agents; Z91.013 Allergy to seafood; E87.6 Hypokalemia; E83.42 Hypomagnesemia; R73.9 Hyperglycemia, unspecified
CPT/HCPCS: 36415; 36569; 36573; 36600; 70450; 71045; 71250; 71260; 71275; 72125; 72128; 74018; 74174; 74176; 74177; 76700; 80048; 80053; 80061; 80069; 80076; 80162; 80202; 80305; 81001; 81003; 82140; 82150; 82330; 82550; 82570; 82803; 82948; 83036; 83605; 83690; 83735; 83880; 84100; 84132; 84133; 84134; 84145; 84300; 84443; 84478; 84484; 84540; 85007; 85008; 85018; 85025; 85610; 85730; 87040; 87070; 87077; 87081; 87088; 87186; 87635; 93005; 93308; 94002; 94003; 94660; 94760; 94799; 97110; 97116; 97161; 97530; 97535; 99285; C9113; C9803; G0378; J0360; J0610; J0696; J1160; J1200; J1630; J1815; J1885; J1940; J1956; J2060; J2270; J2405; J2543; J2704; J2930; J3010; J3360; J3370; J3411; J3475; J3480; J3490; J7030; J7040; J7042; J7060; J7120; P9045; P9047; Q9967

== ENCOUNTER 2023-06-06 10:52 | Outpatient (CLI) | payer OTHER ==
[~2023-06-06 10:52] MED LIST changes: +AMOX-580 PO; +APIX5TAB3 OGT; -APIX5TAB3 PO; +DIGO250T4 PO; +DILT30TA2 PO; +MULT-25 PO; +NALT50TA PO; +PANT40TA54 PO; +PROP10TA10 PO; -etomidate 2mg/ml inj. ONE; +folic acid tablet PO; -rocuronium 10mg/ml inj IV ONE; +thiamine tablet PO
== END 2023-06-06 23:59 | disposition home or self-care (01) ==
LOC: RAD 10:52
PROVIDERS: ATTEND Chiropractor
DX: M13.80 Other specified arthritis, unspecified site (principal)
CPT/HCPCS: 73502